=== PATIENT | male | born 1945 | race Caucasian/White ===

== ENCOUNTER 2019-02-15 12:26 | Inpatient (IN) ==
[2019-02-15] MEDS ORDERED: 0.9 % SODIUM CHLORIDE 1,000 ML IV ONE ×2 (12:42→14:21)
--- NOTE | 2019-02-15 13:24 | Emergency Department Note ---
Weakness HPI - General Chief complaint: Weakness Stated complaint: WEAKNESS Time Seen by Provider: 02/15/19 13:11 Source: family Mode of arrival: wheelchair Limitations: altered mental status - History of Present Illness HPI Narrative: Patient brought in because of increased weakness. Patient does drink heavily daily age greater than 5 drinks a day of hard liquor. He states today already he has had 5 alcohol drinks. He has been having episodes of falling states is from his peripheral neuropathy. His housekeeper head does say he has a heavy history of alcohol abuse. This patient states he has had the sores on his big toes for the past 3 days was found today incontinent of stool and urine. And too weak to get up. Denies any chest pain there is no shortness of breathTemperature is 97.3 the pulse is 76 the respirations are 22 and blood pressure 133/72 pulse ox 90% - Related Data Home Medications Medication Instructions Recorded Confirmed Allopurinol [Zyloprim] 300 mg PO DAILY 05/02/18 05/02/18 Atorvastatin [Lipitor] 20 mg PO HS 05/02/18 05/02/18 Folic Acid 1 mg PO DAILY 05/02/18 05/02/18 Furosemide [Lasix] 40 mg PO DAILY 05/02/18 05/02/18 Pantoprazole [Protonix] 40 mg PO QAMAC 05/02/18 05/02/18 Potassium Chloride [Kdur] 10 meq PO DAILY 05/02/18 05/02/18 Propranolol [Inderal LA] 80 mg PO DAILY 05/02/18 05/02/18 metFORMIN HCL [Fortamet] 500 mg PO BID 05/02/18 05/02/18 Allergies Allergy/AdvReac Type Severity Reaction Status Date / Time No Known Drug Allergies Allergy Verified 02/15/19 12:31 Review of Systems All systems ED: reviewed and negative except as stated. Constitutional: Reports: weakness. Denies: fever, chills Cardiovascular: Denies: chest pain Genitourinary: Denies: dysuria, frequency, urgency Endocrine: Reports: fatigue Past Medical History - Past Medical History Medical history: Reports: other (Heavy alcohol usage) - Social History smoking status: Former smoker Alcohol use: Reports: Frequently, Heavy Drug use: Reports: none Physical Exam Limitations: altered mental status Head: atraumatic Eye: Present: normal appearance, PERRL ENT: normal exam, normal oropharynx Neck: Present: normal inspection, full ROM Chest: Present: normal inspection, symmetric chest wall rise Respiratory: Present: normal lung sounds bilaterally, respiratory distress Cardiovascular: Present: regular rate, normal rhythm Abdominal: Present: soft, normal bowel sounds. Absent: distention, tenderness, guarding, rebound, rigidity Back: Present: normal inspection, full ROM. Absent: tenderness, CVA tenderness (R) Neurological: Present: alert, oriented X3 Psychiatric: Present: normal affect, normal mood Skin: Present: warm, cool Course Vital Signs Temperature 97.3 F 02/15/19 12:26 Pulse Rate 76 02/15/19 12:26 Respiratory Rate 22 02/15/19 12:26 Blood Pressure 133/72 02/15/19 12:26 Pulse Oximetry (%) 100 02/15/19 12:26 Temperature 97.3 F 02/15/19 12:26 Pulse Rate 80 02/15/19 16:02 Respiratory Rate 29 H 02/15/19 15:42 Blood Pressure 139/70 02/15/19 16:02 Pulse Oximetry (%) 100 02/15/19 16:02 Weakness - MDM Narrative Medical decision making narrative: White counts 10,400 to hemoglobin 11.4 hematocrit 33.8 lactic acid is 4.9 and panel normal of the BNP is 1 324 elevated liver function tests urine test is normal EtOH is 0.404 patient found with increased weakness and falling on the floor patient found in feces and urine. Dr. Rodriguez contacted patient to be admitted. Blood cultures have been drawn culture and sensitivity of the wound Comycin started - Lab Data Result diagrams: 02/15/19 12:58 02/15/19 12:58 Lab Results 02/15/19 02/15/19 02/15/19 Range/Units 12:58 12:58 12:58 WBC 10.4 (4.5-11.0) K/mcL RBC 3.19 L (4.50-5.90) M/mcL Hgb 11.4 L (13.5-16.5) g/dL Hct 33.8 L (41.0-55.0) % MCV 105.9 H (80.0-100.0) fL MCH 35.8 H (26.0-34.0) pg MCHC 33.8 (31.0-36.0) g/dL RDW 14.0 (11.5-14.5) % Plt Count 188 (140-440) K/mcL MPV 7.0 L (7.4-10.4) fL Gran % 75.5 (38.0-78.0) % Lymph % (Auto) 14.3 L (15.5-49.0) % [place] % (Auto) 9.8 (1.0-12.0) % Eos % (Auto) 0.1 (0.0-7.0) % Baso % (Auto) 0.3 (0.0-2.0) % Gran # 7.9 (1.8-8.0) K/mcL Lymph # (Auto) 1.5 (1.5-4.8) K/mcL [place] # (Auto) 1.0 H (0.1-0.9) K/mcL Eos # (Auto) 0 (0.0-0.7) K/mcL Baso # (Auto) 0 (0.0-0.3) K/mcL VBG Lactic Acid (0.5-2.0) mmol/L Sodium 124 L (133-145) mmol/L Potassium 3.9 (3.3-5.1) mmol/L Chloride 78 L (96-108) mmol/L Carbon Dioxide 20 L (22-30) mmol/L Anion Gap 26.0 H (8-16) BUN 28 H (8-23) mg/dl Creatinine 1.5 H (0.7-1.2) mg/dl GFR Calculation 46 Glucose 84 (70-105) mg/dL Calcium 9.1 (8.6-10.4) mg/dl Total Bilirubin 1.0 (0.0-1.0) mg/dL AST 90 H (0-37) U/l ALT 53 H (0-40) U/l Alkaline Phosphatase 114 (39-117) U/L Total Creatine Kinase 433 H (24-195) IU/L Troponin T < 0.01 (0-0.03) ng/ml NT-Pro-B Natriuret Pep 1324.0 H (0-125) pg/ml Total Protein 7.3 (5.9-8.4) gm/dL Albumin 4.4 (3.2-5.2) gm/dL Globulin 2.9 (2.2-3.7) gm/dL Albumin/Globulin Ratio 1.5 (1.0-2.3) Urine Color Urine Appearance Urine pH (5.0-9.0) Ur Specific [place] (1.000-1.035) Urine Protein (NEG) mg/dL Urine Glucose (UA) (NEG) mg/dL Urine Ketones (NEG) mg/dL Urine Occult Blood (<0.03) mg/dL Urine Nitrate (NEG) Urine Bilirubin (NEG) mg/dL Urine Urobilinogen (NEG) mg/dL Ur Leukocyte Esterase (NEG) /uL Urine RBC (0-1) /hpf Urine WBC (0-4) /hpf Ur Squamous Epith Cells (0-4) /hpf Urine Bacteria (0) /hpf Urine Mucus (0) /hpf Ur Culture Indicated? Urine Opiates Screen (NONDETECTED) Ur Oxycodone Screen (NONDETECTED) Urine Methadone Screen (NONDETECTED) Ur Barbiturates Screen (NONDETECTED) Ur Phencyclidine Scrn (NONDETECTED) Ur Amphetamines Screen (NONDETECTED) U Benzodiazepines Scrn (NONDETECTED) Urine Cocaine Screen (NONDETECTED) U Marijuana (THC) Screen (NONDETECTED) Ethyl Alcohol (<0.010) gm/dl 02/15/19 02/15/19 02/15/19 Range/Units 12:58 13:29 13:30 WBC (4.5-11.0) K/mcL RBC (4.50-5.90) M/mcL Hgb (13.5-16.5) g/dL Hct (41.0-55.0) % MCV (80.0-100.0) fL MCH (26.0-34.0) pg MCHC (31.0-36.0) g/dL RDW (11.5-14.5) % Plt Count (140-440) K/mcL MPV (7.4-10.4) fL Gran % (38.0-78.0) % Lymph % (Auto) (15.5-49.0) % [place] % (Auto) (1.0-12.0) % Eos % (Auto) (0.0-7.0) % Baso % (Auto) (0.0-2.0) % Gran # (1.8-8.0) K/mcL Lymph # (Auto) (1.5-4.8) K/mcL [place] # (Auto) (0.1-0.9) K/mcL Eos # (Auto) (0.0-0.7) K/mcL Baso # (Auto) (0.0-0.3) K/mcL VBG Lactic Acid 4.9 H* (0.5-2.0) mmol/L Sodium (133-145) mmol/L Potassium (3.3-5.1) mmol/L Chloride (96-108) mmol/L Carbon Dioxide (22-30) mmol/L Anion Gap (8-16) BUN (8-23) mg/dl Creatinine (0.7-1.2) mg/dl GFR Calculation Glucose (70-105) mg/dL Calcium (8.6-10.4) mg/dl Total Bilirubin (0.0-1.0) mg/dL AST (0-37) U/l ALT (0-40) U/l Alkaline Phosphatase (39-117) U/L Total Creatine Kinase (24-195) IU/L Troponin T (0-0.03) ng/ml NT-Pro-B Natriuret Pep (0-125) pg/ml Total Protein (5.9-8.4) gm/dL Albumin (3.2-5.2) gm/dL Globulin (2.2-3.7) gm/dL Albumin/Globulin Ratio (1.0-2.3) Urine Color Yellow Urine Appearance Clear Urine pH 6.0 (5.0-9.0) Ur Specific [place] 1.010 (1.000-1.035) Urine Protein 100 (2+) (NEG) mg/dL Urine Glucose (UA) Norm (NEG) mg/dL Urine Ketones 15 (1+) (NEG) mg/dL Urine Occult Blood 1+ (small) (<0.03) mg/dL Urine Nitrate Neg (NEG) Urine Bilirubin Neg (NEG) mg/dL Urine Urobilinogen Norm (NEG) mg/dL Ur Leukocyte Esterase Neg (NEG) /uL Urine RBC 0 (0-1) /hpf Urine WBC < 1 (0-4) /hpf Ur Squamous Epith Cells < 1 (0-4) /hpf Urine Bacteria 0 (0) /hpf Urine Mucus Few (0) /hpf Ur Culture Indicated? No Urine Opiates Screen (NONDETECTED) Ur Oxycodone Screen (NONDETECTED) Urine Methadone Screen (NONDETECTED) Ur Barbiturates Screen (NONDETECTED) Ur Phencyclidine Scrn (NONDETECTED) Ur Amphetamines Screen (NONDETECTED) U Benzodiazepines Scrn (NONDETECTED) Urine Cocaine Screen (NONDETECTED) U Marijuana (THC) Screen (NONDETECTED) Ethyl Alcohol 0.404 H (<0.010) gm/dl 02/15/19 Range/Units 13:30 WBC (4.5-11.0) K/mcL RBC (4.50-5.90) M/mcL Hgb (13.5-16.5) g/dL Hct (41.0-55.0) % MCV (80.0-100.0) fL MCH (26.0-34.0) pg MCHC (31.0-36.0) g/dL RDW (11.5-14.5) % Plt Count (140-440) K/mcL MPV (7.4-10.4) fL Gran % (38.0-78.0) % Lymph % (Auto) (15.5-49.0) % [place] % (Auto) (1.0-12.0) % Eos % (Auto) (0.0-7.0) % Baso % (Auto) (0.0-2.0) % Gran # (1.8-8.0) K/mcL Lymph # (Auto) (1.5-4.8) K/mcL [place] # (Auto) (0.1-0.9) K/mcL Eos # (Auto) (0.0-0.7) K/mcL Baso # (Auto) (0.0-0.3) K/mcL VBG Lactic Acid (0.5-2.0) mmol/L Sodium (133-145) mmol/L Potassium (3.3-5.1) mmol/L Chloride (96-108) mmol/L Carbon Dioxide (22-30) mmol/L Anion Gap (8-16) BUN (8-23) mg/dl Creatinine (0.7-1.2) mg/dl GFR Calculation Glucose (70-105) mg/dL Calcium (8.6-10.4) mg/dl Total Bilirubin (0.0-1.0) mg/dL AST (0-37) U/l ALT (0-40) U/l Alkaline Phosphatase (39-117) U/L Total Creatine Kinase (24-195) IU/L Troponin T (0-0.03) ng/ml NT-Pro-B Natriuret Pep (0-125) pg/ml Total Protein (5.9-8.4) gm/dL Albumin (3.2-5.2) gm/dL Globulin (2.2-3.7) gm/dL Albumin/Globulin Ratio (1.0-2.3) Urine Color Urine Appearance Urine pH (5.0-9.0) Ur Specific [place] (1.000-1.035) Urine Protein (NEG) mg/dL Urine Glucose (UA) (NEG) mg/dL Urine Ketones (NEG) mg/dL Urine Occult Blood (<0.03) mg/dL Urine Nitrate (NEG) Urine Bilirubin (NEG) mg/dL Urine Urobilinogen (NEG) mg/dL Ur Leukocyte Esterase (NEG) /uL Urine RBC (0-1) /hpf Urine WBC (0-4) /hpf Ur Squamous Epith Cells (0-4) /hpf Urine Bacteria (0) /hpf Urine Mucus (0) /hpf Ur Culture Indicated? Urine Opiates Screen None detected (NONDETECTED) Ur Oxycodone Screen None detected (NONDETECTED) Urine Methadone Screen None detected (NONDETECTED) Ur Barbiturates Screen None detected (NONDETECTED) Ur Phencyclidine Scrn None detected (NONDETECTED) Ur Amphetamines Screen None detected (NONDETECTED) U Benzodiazepines Scrn None detected (NONDETECTED) Urine Cocaine Screen None detected (NONDETECTED) U Marijuana (THC) Screen None detected (NONDETECTED) Ethyl Alcohol (<0.010) gm/dl Disposition Pt seen by COATING MACHINE FEEDER/PA only: No Clinical Impression: Elevated lactic acid level Disposition: Xfer As Inpt ([facility]) Condition: Fair Referrals: Sancho Martell MD [Primary Care Provider] -
[2019-02-15 13:35] LABS: Basophils # (Auto) 0 K/mcL (0.0-0.3); Basophils % (Auto) 0.3 % (0.0-2.0); Eosinophils # (Auto) 0 K/mcL (0.0-0.7); Eosinophils % (Auto) 0.1 % (0.0-7.0); Granulocytes % (Auto) 75.5 % (38.0-78.0); Lymphocytes # (Auto) 1.5 K/mcL (1.5-4.8); Lymphocytes % (Auto) 14.3 % (15.5-49.0); Mean Cell Volume 105.9 fL (80.0-100.0); Mean Corpuscular HGB Conc 33.8 g/dL (31.0-36.0); Monocytes % (Auto) 9.8 % (1.0-12.0); Platelet Count 188 K/mcL (140-440); RBC 3.19 M/mcL (4.50-5.90)
--- NOTE | 2019-02-15 13:59 | XRay Report ---
CLINICAL INFORMATION: WEAKNESS COMPARISON: None. FINDINGS: The heart size, mediastinum and pulmonary vessels are unremarkable. The lungs are clear. There are no effusions. The bones and soft tissues are within normal limits. IMPRESSION: Normal chest. Interpreted and Authenticated by: Saravanan Arreola 02/15/19
[2019-02-15 14:08] LABS: ALT/SGPT 53 U/l (0-40); Albumin 4.4 gm/dL (3.2-5.2); Albumin/Globulin Ratio 1.5 (1.0-2.3); Alkaline Phosphatase 114 U/L (39-117); Blood Urea Nitrogen 28 mg/dl (8-23); Creatine Kinase 433 IU/L (24-195)
[2019-02-15 14:17] LABS: Appearance,Urine CLEAR; Bacteria,Urine 0 /hpf (0); Bilirubin,Urine NEG (NEG); Color,Urine YELLOW; Glucose,Urine (UA) NORM (NEG); Leukocyte Esterase,Urine NEG /uL (NEG); Mucus,Urine FEW /hpf (0); Protein,Urine 100 (2+) mg/dL (NEG); Urine Blood 1+ (SMALL) mg/dL (<0.03); Urine RBC 0 /hpf (0-1); Urine Squamous Epithelial Cell < 1 /hpf (0-4); Urine WBC < 1 /hpf (0-4); Urobilinogen,Urine NORM (NEG)
[2019-02-15] MEDS ORDERED: VANCOMYCIN 1,000 MG in 0.9 % SODIUM CHLORIDE 250 ML IV ONE (14:22)
[2019-02-15 14:24] LABS: Amphetamine Screen,Urine NONE DETECTED (NONDETECTED); Benzodiazepines Screen,Urine NONE DETECTED (NONDETECTED); Cocaine Screen,Urine NONE DETECTED (NONDETECTED); Opiate Screen,Urine NONE DETECTED (NONDETECTED); Oxycodone, Urine Screen NONE DETECTED (NONDETECTED)
--- NOTE | 2019-02-15 16:43 | Cat Scan Report ---
CLINICAL INFORMATION: Fall - trauma COMPARISON: None. TECHNIQUE: 2.5 mm helical slices were obtained in the skull base to vertex. Following reconstruction, axial reformatted images were reviewed at bone and parenchymal windows. The exam was performed using radiation dose optimization techniques including, but not limited to, automated exposure control, adjustment of the mA and/or kV according to patient size and use of iterative reconstruction technique. FINDINGS: The ventricles, sulci, fissures, and cisterns are minimally enlarged with mild atrophy as expected for age. No extra-axial fluid collections are identified. Mild chronic ischemic changes in the the cerebral white matter expected for age. There is no evidence of hemorrhage, mass effect, or edema. Bone windows show no osseous abnormality. IMPRESSION: Mild atrophy and chronic ischemic changes within the deep cerebral white matter - expected for age. No hemorrhage or posttraumatic change.. Interpreted and Authenticated by: Saravanan Arreola 02/15/19
--- NOTE | 2019-02-15 17:51 | Internal Med History&Physical ---
Medical - H&P: HPI Patient information: Note initiated : 02/15/19 at 5:46 pm Service Date, if different from initiated Date: [] Patient: Torsten Marroquin 73 y/o M admitted on for Weakness. Chief Complaint: [] History of present illness: Mr. Marroquin is a 73 year old M with history of diabetes, heavy alcohol use, brought to the hospital today by EMS for altered mental status. The patient does not remember the events this morning or afternoon that led to his coming to the hospital. He notes that as usual he drank his usual amount of alcohol. According to the chart it seems that his health and fitness instructor came to check on him, patient was altered did not recognize a health and fitness instructor had multiple bruises on himself and was incontinent of urine and feces. She referred the patient to the hospital. Glucose level by EMS and on presentation was normal. The patient was confused on in the emergency room, and altered, but able to answer questions. He noted that he had 2 ulcers that have been going on for the last 3 days, he has been weak, the patient admits to drinking up to 8 drinks of alcohol a day. The patient notes that he has balance issues because of his neuropathy and has frequent falls because of that. He is not sure what happened this morning however at the time of my evaluation he was alert oriented to time place and person. He denies any complaints. He noted that his toes have been red and swollen for the last few days, did not complain of much pain, because of neuropathy he is unable to have much sensation in his lower extremity. He admits to having chronic tremors and frequent falls, balance issues, the patient notes that when he stopped drinking alcohol because WelChol withdrawal. In the emergency room patient was afebrile on presentation 97.3, heart rate 77 blood pressure 133/72 respirations 22 saturating 100% on room air. Hemoglobin 11.4 WBC 10.4 platelets 188, lactic acid elevated at 4.9, sodium 124 potassium 3.9 glucose 84, creatinine 1.5 BUN 28, CK 433 BNP 1320 troponin is negative UA is clear to tox is negative urine alcohol level was 0.404. [place] EKG shows sinus rhythm QS pattern V1 V2. Chest x-ray is negative, head CT showed mild atrophy no acute changes Given patient had bilateral toe ulcers erythema, lactic acidosis weakness increased falls patient is being admitted to the hospital PCU status for further management. Patient wishes to be full code Patient noted that he would like to quit alcohol, but has been afraid to quit because of withdrawal, he would like to stop drinking he understands that he will go through withdrawal process and is willing to quit drinking after discharge All systems: reviewed and no additional remarkable complaints except as stated (as per HPI rest negative.) Medical - H&P: PMH Medical history: Diabetes Peripheral neuropathy Chronic balance is Tremor ambulates with walker Obesity Gout Hyperlipidemia Surgical history: History of prostate surgery Family history: reviewed and not pertinent Social history: Lives by himself heavy alcohol user 8 full classes alcohol a day, half a gallon lasting 4 days Ex-smoker stopped many years ago Denies any recreational drug use Medical - H&P: Meds Home Medications Medication Instructions Recorded Confirmed Type Allopurinol [Zyloprim] 300 mg PO DAILY 05/02/18 05/02/18 History Atorvastatin [Lipitor] 20 mg PO HS 05/02/18 05/02/18 History Folic Acid 1 mg PO DAILY 05/02/18 05/02/18 History Furosemide [Lasix] 40 mg PO DAILY 05/02/18 05/02/18 History Pantoprazole [Protonix] 40 mg PO QAMAC 05/02/18 05/02/18 History Potassium Chloride [Kdur] 10 meq PO DAILY 05/02/18 05/02/18 History Propranolol [Inderal LA] 80 mg PO DAILY 05/02/18 05/02/18 History metFORMIN HCL [Fortamet] 500 mg PO BID 05/02/18 05/02/18 History Allergies Allergy/AdvReac Type Severity Reaction Status Date / Time No Known Drug Allergies Allergy Verified 02/15/19 12:31 Medical - H&P: Exam - Constitutional Vitals: Temp Pulse Resp BP Pulse Ox 97.3 F 77 12 139/70 98 02/15/19 12:26 02/15/19 17:39 02/15/19 17:39 02/15/19 16:02 02/15/19 17:39 Medical - H&P: Reslt - Labs CBC & Chem 7: 02/15/19 12:58 02/15/19 12:58 Labs: Short CBC 02/15/19 Range/Units 12:58 WBC 10.4 (4.5-11.0) K/mcL Hgb 11.4 L (13.5-16.5) g/dL Hct 33.8 L (41.0-55.0) % Plt Count 188 (140-440) K/mcL BMP 02/15/19 12:58 Sodium 124 L Potassium 3.9 Chloride 78 L Carbon Dioxide 20 L BUN 28 H Creatinine 1.5 H Glucose 84 Calcium 9.1 Cardiac Enzymes 02/15/19 02/15/19 Range/Units 12:58 12:58 Total Creatine Kinase 433 H (24-195) IU/L Troponin T < 0.01 (0-0.03) ng/ml Liver Function 02/15/19 Range/Units 12:58 Total Bilirubin 1.0 (0.0-1.0) mg/dL AST 90 H (0-37) U/l ALT 53 H (0-40) U/l Alkaline Phosphatase 114 (39-117) U/L Albumin 4.4 (3.2-5.2) gm/dL Urine 02/15/19 Range/Units 13:30 Urine Color Yellow Urine Appearance Clear Urine pH 6.0 (5.0-9.0) Ur Specific [place] 1.010 (1.000-1.035) Urine Protein 100 (2+) (NEG) mg/dL Urine Glucose (UA) Norm (NEG) mg/dL Medical - H&P: A/P - Narrative A/P Narrative: A/P Altered mental status/ Toxic vs septic encephalopathy -mental status seems back to baseline, likely from etoh intoxication, sepsis is still possible. Sepsis with Lactic acidosis Cellulitis of toes/ lower extremities -Get CT of toes both, blood culture sent, IV vanco and zosyn for now, -Aggresive fluids, Trend lactate Alcohol intoxication/ Alcohol withdrawal -high risk for withdrawal, -monitor on PCU status -ciwa protocol, yeny valium 5mg q8 -thiamine mv, folic acid -seizure precautions. Peripheral neuropathy -from DM, rehab Weaknes/Debility -OT/PT eval DM -Hold oral meds, ssi insulin for glucose control HLD/ Obesity -continue outpatient management. DVT hep sq Diet carb consistent Full code.
[2019-02-15 18:03] LABS: Albumin 4.2 gm/dL (3.2-5.2); Bilirubin,Direct 0.4 mg/dL (0.0-0.3)
--- NOTE | 2019-02-15 19:39 | Cat Scan Report ---
CLINICAL INFORMATION: cellulitis/osteomyelitis COMPARISON: None. TECHNIQUE: 0.625 helical slices were obtained through both feet and ankles. Following reconstruction, 2.5 m sagittal, coronal and axial reformatted images were processed in bone and soft tissue windows. FINDINGS: There are no potential regions of osteomyelitis throughout either foot or ankle. Mild diffuse osteoporosis appreciated. Severe degenerative change noted in both first MTP joints with bilateral hallux valgus anomalies. Moderate degenerative change in all interphalangeal joints. No evidence of septic arthritis. Moderate edema or cellulitis seen diffusely throughout the subcutaneous the ankle bilaterally. IMPRESSION: Diffuse edema or cellulitis in the subcutaneous soft tissues of both feet. No CT evidence for osteomyelitis or septic arthritis. Degenerative change bilateral hallux valgus Interpreted and Authenticated by: Saravanan Arreola 02/15/19
[2019-02-15] MEDS ORDERED: ACETAMINOPHEN 325 MG TABLET PO PRN (19:55)
[2019-02-15] MEDS ORDERED: THIAMINE 100 MG in 0.9 % SODIUM CHLORIDE 50 ML IV ONE (19:55)
[2019-02-15] MEDS ORDERED: DEXTROSE 50% 50 ML VIAL IV PRN (19:55)
[2019-02-15] MEDS ORDERED: NALOXONE HCL 0.4 MG/ML VIAL IV PRN (19:55)
[2019-02-15] MEDS ORDERED: DEXTROSE 31 GM ORAL.SUSP PO PRN (19:55)
[2019-02-15] MEDS ORDERED: LACTATED RINGERS 1,000 ML IV ONE ×4 (19:55→22:31)
[2019-02-15] MEDS ORDERED: VANCOMYCIN PER PHARMACY IV SCH (19:55)
[2019-02-15] MEDS ORDERED: THIAMINE 100 MG/ML VIAL ONE (20:22)
[2019-02-15] MEDS: INSULIN LISPRO 1 UNIT/0.01 ML UNIT SQ SCH (20:30)
[2019-02-15] MEDS: VANCOMYCIN 1,000 MG in 0.9 % SODIUM CHLORIDE 250 ML IV SCH (20:32)
[2019-02-15] MEDS ORDERED: MAGNESIUM SULFATE 2 GM/50 ML BAG IV ONE (20:56)
[2019-02-15] MEDS: 0.9 % SODIUM CHLORIDE 10 ML SYRINGE IV SCH (22:44)
[2019-02-15] MEDS: PIPERACILLIN SODIUM/TAZOBACTAM 3.375 GM in DEXTROSE 5% IN WATER 50 ML IV SCH (22:44)
[2019-02-15] MEDS: HEPARIN 5,000 UNIT/ML VIAL SQ SCH (22:44)
[2019-02-15] MEDS: DIAZEPAM 5 MG TABLET PO SCH (22:44)
[2019-02-16] MEDS: ONDANSETRON 4 MG/2 ML VIAL IV PRN ×4 (01:03→22:00)
[2019-02-16] MEDS: LORazepam 2 MG/ML VIAL IV PRN ×4 (02:42→22:00)
[2019-02-16] MEDS: 0.9 % SODIUM CHLORIDE 10 ML SYRINGE IV SCH ×6 (05:43→21:49)
[2019-02-16] MEDS: DIAZEPAM 5 MG TABLET PO SCH ×3 (05:47→21:54)
[2019-02-16] MEDS: PIPERACILLIN SODIUM/TAZOBACTAM 3.375 GM in DEXTROSE 5% IN WATER 50 ML IV SCH ×3 (05:47→21:54)
[2019-02-16] MEDS: PANTOPRAZOLE 40 MG TABLET PO SCH ×2 (06:57→09:28)
[2019-02-16] MEDS: INSULIN LISPRO 1 UNIT/0.01 ML UNIT SQ SCH ×4 (07:00→20:09)
[2019-02-16 07:04] LABS: Basophils # (Auto) 0 K/mcL (0.0-0.3); Basophils % (Auto) 0.2 % (0.0-2.0); Eosinophils # (Auto) 0 K/mcL (0.0-0.7); Eosinophils % (Auto) 0 % (0.0-7.0); Granulocytes % (Auto) 84.3 % (38.0-78.0); Lymphocytes # (Auto) 0.7 K/mcL (1.5-4.8); Lymphocytes % (Auto) 8.7 % (15.5-49.0); Mean Cell Volume 107.8 fL (80.0-100.0); Monocytes # (Auto) 0.5 K/mcL (0.1-0.9); Monocytes % (Auto) 6.8 % (1.0-12.0); Platelet Count 157 K/mcL (140-440); Red Cell Distribution Width 14.4 % (11.5-14.5)
[2019-02-16 07:43] LABS: ALT/SGPT 57 U/l (0-40); Albumin 3.7 gm/dL (3.2-5.2); Albumin/Globulin Ratio 1.5 (1.0-2.3); Alkaline Phosphatase 102 U/L (39-117); Bilirubin,Direct 0.3 mg/dL (0.0-0.3); Blood Urea Nitrogen 21 mg/dl (8-23); Gamma Glutamyl Transpeptidase 92 U/L (8-61); Uric Acid 4.9 mg/dL (2.5-8.0)
[2019-02-16] MEDS: HEPARIN 5,000 UNIT/ML VIAL SQ SCH ×2 (09:19→20:10)
[2019-02-16] MEDS: THIAMINE 100 MG TABLET PO SCH (10:40)
[2019-02-16] MEDS: FOLIC ACID 1 MG TABLET PO SCH (10:40)
[2019-02-16] MEDS: MULTIVIT,THER IRON,CA,FA & MIN 1 TABLET PO SCH (10:40)
[2019-02-16] MEDS: cloNIDine HCL 0.1 MG TABLET PO PRN (10:40)
[2019-02-16] MEDS: VANCOMYCIN 1,000 MG in 0.9 % SODIUM CHLORIDE 250 ML IV SCH ×2 (10:40→20:10)
[2019-02-16] MEDS: LACTATED RINGERS 1,000 ML IV SCH (14:50)
--- NOTE | 2019-02-16 16:11 | General Surgery Consult Note ---
History of Present Illness Patient information: Note initiated : 02/16/19 at 4:08 pm Service Date, if different from initiated Date: [] Patient: Torsten Marroquin 73 y/o M admitted on 02/15/19 for Weakness. Chief Complaint: [] Consult date: 02/16/19 Requesting physician: Jai Rodriguez (Toe ulcers / wounds Bilateral feet) History of present illness: I saw this patient along with Anabella WING in ICU 120 / D CC: ETOH, AMS, Self neglect and h/o frequent falls and now with episode of lactic acidosis with incontinence of urine and stools. He was seen to have pitti ng edema of both legs and ulcerations with adherent eschar over toes Medications and Allergies Home Medications Medication Instructions Recorded Confirmed Type Allopurinol [Zyloprim] 300 mg PO DAILY 05/02/18 02/17/19 History Atorvastatin [Lipitor] 20 mg PO HS 05/02/18 02/17/19 History Folic Acid 1 mg PO DAILY 05/02/18 02/17/19 History Furosemide [Lasix] 40 mg PO DAILY 05/02/18 02/17/19 History Pantoprazole [Protonix] 40 mg PO QAMAC 05/02/18 02/17/19 History Potassium Chloride [Kdur] 10 meq PO DAILY 05/02/18 02/17/19 History Propranolol [Inderal LA] 80 mg PO DAILY 05/02/18 02/17/19 History metFORMIN HCL [Fortamet] 500 mg PO BID 05/02/18 02/17/19 History Aspirin [Sera Chewable Aspirin] 81 mg PO DAILY 02/17/19 02/17/19 History Calcium Carbonate [Calcium] 1,000 mg PO DAILY 02/17/19 02/17/19 History Magnesium Oxide [Magnesium] 500 mg PO DAILY 02/17/19 02/17/19 History Vitamin B12 1,000 mcg PO DAILY 02/17/19 02/17/19 History Allergies Allergy/AdvReac Type Severity Reaction Status Date / Time No Known Drug Allergies Allergy Verified 02/15/19 12:31 Exam Temp Pulse Resp BP Pulse Ox 99.9 F H 81 20 150/73 96 02/16/19 15:18 02/16/19 12:48 02/16/19 12:48 02/16/19 12:01 02/16/19 12:48 - General physical appearance well developed, well nourished, no distress - Eyes PERRL, normal ocular movement - ENT normal pinna, normal mucosa, no congestion - Head Head exam IM: Present: atraumatic, normocephalic - Neck no masses, trachea midline, no venous distension - Cardiovascular Cardiovascular exam IM: Present: tachycardia - Respiratory other (Diminished air entry lung bases) - Abdomen Abdomen: Present: soft, non tender, bowel sounds - Integumentary Present: other (Epiedermal chronic ulcers of toes both feet. NO Cellulitis. NO gangrene, NO crepitation, No drainage and NO odor. ) - Neurologic Present: other (In Bed. BERKOWITZ purposeful movements. DTs and Tremors of all extremities on admission are better. ) - Psychiatric Present: oriented to place, speech is normal, other (Variable attention span, but coherent and lucid at times and cooperative. ) Results - Labs 02/17/19 03:55 02/17/19 03:55 Abnormal lab results 02/15/19 02/15/19 02/16/19 Range/Units 12:58 21:03 03:40 RBC 2.90 L (4.50-5.90) M/mcL Hgb 10.3 L (13.5-16.5) g/dL Hct 31.2 L (41.0-55.0) % MCV 107.8 H (80.0-100.0) fL MCH 35.5 H (26.0-34.0) pg Gran % 84.3 H (38.0-78.0) % Lymph % (Auto) 8.7 L (15.5-49.0) % Lymph # (Auto) 0.7 L (1.5-4.8) K/mcL VBG Lactic Acid 4.2 H* (0.5-2.0) mmol/L Sodium (133-145) mmol/L Chloride (96-108) mmol/L Carbon Dioxide (22-30) mmol/L Anion Gap (8-16) Creatinine (0.7-1.2) mg/dl Calcium (8.6-10.4) mg/dl Direct Bilirubin 0.4 H (0.0-0.3) mg/dL GGT (8-61) U/L AST 88 H (0-37) U/l ALT 52 H (0-40) U/l Lactate Dehydrogenase (94-250) U/L 02/16/19 02/16/19 Range/Units 03:40 04:00 RBC (4.50-5.90) M/mcL Hgb (13.5-16.5) g/dL Hct (41.0-55.0) % MCV (80.0-100.0) fL MCH (26.0-34.0) pg Gran % (38.0-78.0) % Lymph % (Auto) (15.5-49.0) % Lymph # (Auto) (1.5-4.8) K/mcL VBG Lactic Acid 2.9 H (0.5-2.0) mmol/L Sodium 132 L (133-145) mmol/L Chloride 88 L (96-108) mmol/L Carbon Dioxide 17 L (22-30) mmol/L Anion Gap 27.0 H (8-16) Creatinine 1.3 H (0.7-1.2) mg/dl Calcium 8.5 L (8.6-10.4) mg/dl Direct Bilirubin (0.0-0.3) mg/dL GGT 92 H (8-61) U/L AST 93 H (0-37) U/l ALT 57 H (0-40) U/l Lactate Dehydrogenase 301 H (94-250) U/L Diabetes panel 02/15/19 02/16/19 Range/Units 12:58 03:40 Sodium 132 L (133-145) mmol/L Potassium 3.9 (3.3-5.1) mmol/L Chloride 88 L (96-108) mmol/L Carbon Dioxide 17 L (22-30) mmol/L BUN 21 (8-23) mg/dl Creatinine 1.3 H (0.7-1.2) mg/dl Glucose 72 (70-105) mg/dL Calcium 8.5 L (8.6-10.4) mg/dl AST 88 H 93 H (0-37) U/l ALT 52 H 57 H (0-40) U/l Alkaline Phosphatase 109 102 (39-117) U/L Total Protein 7.1 6.1 (5.9-8.4) gm/dL Albumin 4.2 3.7 (3.2-5.2) gm/dL Triglycerides 31 (<150) mg/dl Thyroid panel 02/16/19 Range/Units 03:40 TSH 2.03 (0.27-5.01) uIU/ml Calcium panel 02/15/19 02/16/19 Range/Units 12:58 03:40 Calcium 8.5 L (8.6-10.4) mg/dl Phosphorus 3.4 3.1 (2.7-4.5) mg/dL Albumin 4.2 3.7 (3.2-5.2) gm/dL Pituitary panel 02/16/19 Range/Units 03:40 Sodium 132 L (133-145) mmol/L Potassium 3.9 (3.3-5.1) mmol/L Chloride 88 L (96-108) mmol/L Carbon Dioxide 17 L (22-30) mmol/L BUN 21 (8-23) mg/dl Creatinine 1.3 H (0.7-1.2) mg/dl Glucose 72 (70-105) mg/dL Calcium 8.5 L (8.6-10.4) mg/dl TSH 2.03 (0.27-5.01) uIU/ml Adrenal panel 02/15/19 02/16/19 Range/Units 12:58 03:40 Sodium 132 L (133-145) mmol/L Potassium 3.9 (3.3-5.1) mmol/L Chloride 88 L (96-108) mmol/L Carbon Dioxide 17 L (22-30) mmol/L BUN 21 (8-23) mg/dl Creatinine 1.3 H (0.7-1.2) mg/dl Glucose 72 (70-105) mg/dL Calcium 8.5 L (8.6-10.4) mg/dl Total Bilirubin 1.0 1.0 (0.0-1.0) mg/dL AST 88 H 93 H (0-37) U/l ALT 52 H 57 H (0-40) U/l Alkaline Phosphatase 109 102 (39-117) U/L Total Protein 7.1 6.1 (5.9-8.4) gm/dL Albumin 4.2 3.7 (3.2-5.2) gm/dL All other labs normal. Assessment and Plan (1) Bilateral great toes ulcers Assessment: Peripheral Neuropathy and Vasculopathy due to DM and / or PAD. Plan: See wound care orders. Agree with supportive care as d/w Hospitalist MD Await [facility]. Will follow patient during hospitalization and later at clinic. 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
--- NOTE | 2019-02-16 16:48 | Internal Med Progress Note ---
Medical - PN: Subj Patient information: Note initiated : 02/16/19 at 4:44 pm Service Date, if different from initiated Date: [] Patient: Torsten Marroquin 73 y/o M admitted on 02/15/19 for Weakness. Chief Complaint: [] Interval history: Mr. Marroquin is a 73 year old M with history of diabetes, heavy alcohol use, b rought to the hospital today by EMS for altered mental status. The patient does not remember the events this morning or afternoon that led to his coming to the hospital. He notes that as usual he drank his usual amount of alcohol. According to the chart it seems that his chemical engineering intern came to check on him, patient was altered did not recognize a chemical engineering intern had multiple bruises on himself and was incontinent of urine and feces. She referred the patient to the hospital. Glucose level by EMS and on presentation was normal. The patient was confused on in the emergency room, and altered, but able to answer questions. He noted that he had 2 ulcers that have been going on for the last 3 days, he has been weak, the patient admits to drinking up to 8 drinks of alcohol a day. The patient notes that he has balance issues because of his neuropathy and has frequent falls because of that. He is not sure what happened this morning however at the time of my evaluation he was alert oriented to time place and person. He denies any complaints. He noted that his toes have been red and swollen for the last few days, did not complain of much pain, because of neuropathy he is unable to have much sensation in his lower extremity. He admits to having chronic tremors and frequent falls, balance issues, the patient notes that when he stopped drinking alcohol because WelChol withdrawal. In the emergency room patient was afebrile on presentation 97.3, heart rate 77 blood pressure 133/72 respirations 22 saturating 100% on room air. Hemoglobin 11.4 WBC 10.4 platelets 188, lactic acid elevated at 4.9, sodium 124 potassium 3.9 glucose 84, creatinine 1.5 BUN 28, CK 433 BNP 1320 troponin is negative UA is clear to tox is negative urine alcohol level was 0.404. [facility] EKG shows sinus rhythm QS pattern V1 V2. Chest x-ray is negative, head CT showed mild atrophy no acute changes Given patient had bilateral toe ulcers erythema, lactic acidosis weakness increased falls patient is being admitted to the hospital PCU status for further management. 02/16 Patient seen and examined, no acute overnight events, tolerating p.o. diet well was very nauseous this morning. Is in alcohol withdrawal C was scores between 7 and 13 on day 1, Continue monitoring for now, continue scheduled Valium and as needed Ativan, continue thiamine replacement IV PPI added, plan of care reviewed with him, case also reviewed with his PCP, who was graciously to come to the hospital today. Pertinent ROS: Denies headache, dizziness Denies chest pain, palpitations Denies cough or shortness of breath Denies abdominal pain, nausea or vomiting. - Constitutional Vitals: Vital Signs Temp Pulse Resp BP Pulse Ox 99.9 F H 81 20 150/73 96 02/16/19 15:18 02/16/19 12:48 02/16/19 12:48 02/16/19 12:01 02/16/19 12:48 Period Temp Pulse Resp BP Sys/Martel Pulse Ox Last 24 Hr 97.2 F-100.2 F 73-86 12-26 115-164/59-75 92-100 Intake and Output 02/16/19 02/16/19 02/16/19 05:59 13:59 21:59 Intake Total 4027 700 Output Total 2125 1250 Balance 1902 -550 Weight 257 lb 1.6 oz Patient Weight 02/17/19 05:59 Weight 257 lb 1.6 oz Intake & Output: Intake & Output 02/16/19 02/16/19 02/16/19 05:59 13:59 21:59 Intake Total 4027 700 Output Total 2125 1250 Balance 1902 -550 Weight 257 lb 1.6 oz Intake: IV 3067 300 Lactated Ringers 1,000 ml @ 2000 Wide Open IV BOLUS ONE Rx#: [id number] Zosyn 3.375 gm In Dextrose 5% 50 50 in Water 50 ml @ 100 mls/hr IV Q8H [facility] Rx#:[id number] Vancomycin 1,000 mg In Sodium 250 Chloride 0.9% 250 ml @ 250 mls/ hr IV Q12H [facility] Rx#:[id number] Oral 960 400 Output: Urine Catheter Amount 2125 1250 Other: Meal Breakfast Percent of Meal Consumed 50% Feeding Ability Assist with Tray Set Up Urine Appearance Clear Carr Clear Clear Urine Color Light Vicenta Light Vicenta Carr Light Vicenta Light Vicenta Urine Odor Normal # Emeses 2 Exam: Constitutional; Afebrile, cooperative, alert, not in distress. Respiratory system: Air Entry equal on both sides, No crackles or wheezing, no rhonchi. CVS- Rate rhythm regular, S1,S2 heard, no gallop, no rub. Abdomen- Soft nontender abdomen, no organomegaly, no tenderness, no guarding or rigidity, MUSICAL [employer]ING [employer]ER- AOOx3, moving all extremities, no gross focal deficit noted. richy lower extremities, still erythematous, but improved from yesterday, richy pedal pulses present Medical - PN: Obj Da - Labs CBC & Chem 7: 02/16/19 03:40 02/16/19 03:40 Labs: Abnormal Lab Results 02/16/19 02/16/19 02/16/19 04:00 03:40 03:40 RBC 2.90 L Hgb 10.3 L Hct 31.2 L MCV 107.8 H MCH 35.5 H MPV Gran % 84.3 H Lymph % (Auto) 8.7 L Lymph # (Auto) 0.7 L [place] # (Auto) VBG Lactic Acid 2.9 H Sodium 132 L Chloride 88 L Carbon Dioxide 17 L Anion Gap 27.0 H BUN Creatinine 1.3 H Calcium 8.5 L Direct Bilirubin GGT 92 H AST 93 H ALT 57 H Lactate Dehydrogenase 301 H Total Creatine Kinase NT-Pro-B Natriuret Pep Ethyl Alcohol 02/15/19 02/15/19 02/15/19 21:03 13:29 12:58 RBC Hgb Hct MCV MCH MPV Gran % Lymph % (Auto) Lymph # (Auto) [place] # (Auto) VBG Lactic Acid 4.2 H* 4.9 H* Sodium Chloride Carbon Dioxide Anion Gap BUN Creatinine Calcium Direct Bilirubin 0.4 H GGT AST 88 H ALT 52 H Lactate Dehydrogenase Total Creatine Kinase NT-Pro-B Natriuret Pep Ethyl Alcohol 02/15/19 02/15/19 02/15/19 12:58 12:58 12:58 RBC 3.19 L Hgb 11.4 L Hct 33.8 L MCV 105.9 H MCH 35.8 H MPV 7.0 L Gran % Lymph % (Auto) 14.3 L Lymph # (Auto) [place] # (Auto) 1.0 H VBG Lactic Acid Sodium 124 L Chloride 78 L Carbon Dioxide 20 L Anion Gap 26.0 H BUN 28 H Creatinine 1.5 H Calcium Direct Bilirubin GGT AST 90 H ALT 53 H Lactate Dehydrogenase Total Creatine Kinase 433 H NT-Pro-B Natriuret Pep 1324.0 H Ethyl Alcohol 0.404 H Meds: Medications Acetaminophen (Tylenol) 650 mg PO Q4-6HP PRN PRN Reason: PAIN/FEVER > 101 Clonidine HCl (Catapres) 0.1 mg PO Q4HP PRN PRN Reason: Alcohol Withdrawal Last Admin: 02/16/19 10:40 Dose: 0.1 mg Documented by: Dextrose (Dextrose 50%) 0 ml IV UD PRN PRN Reason: Hypoglycemia Diagnostic Test (Pha) (Accu-Chek) 1 each FS ACHS [facility] Last Admin: 02/16/19 12:43 Dose: 1 each Documented by: Diazepam (Valium) 5 mg PO Q8 [facility] Last Admin: 02/16/19 14:51 Dose: 5 mg Documented by: Folic Acid (Folic Acid) 1 mg PO DAILY [facility] Last Admin: 02/16/19 10:40 Dose: 1 mg Documented by: Glucose (Insta-Glucose) 15 gm PO PRN PRN PRN Reason: Hypoglycemia Heparin Sodium (Porcine) (Heparin) 5,000 unit SQ Q12 [facility] Last Admin: 02/16/19 09:19 Dose: 5,000 unit Documented by: Piperacillin Sod/Tazobactam (Sod 3.375 gm/ Dextrose) 50 mls @ 100 mls/hr IV Q8H [facility]; Protocol Last Admin: 02/16/19 14:51 Dose: 100 mls/hr Documented by: Vancomycin HCl 1,000 mg/ (Sodium Chloride) 250 mls @ 250 mls/hr IV Q12H [facility] Last Infusion: 02/16/19 11:45 Dose: Infused Documented by: Lactated Ringer's (Lactated Ringers) 1,000 mls @ 84 mls/hr IV .[id number] [facility] Last Admin: 02/16/19 14:50 Dose: 84 mls/hr Documented by: Insulin Human Lispro (Humalog) 0 unit SQ ACHS [facility]; Protocol Last Admin: 02/16/19 12:44 Dose: Not Given Documented by: Iron Carb/Multivit/Timpson/Folic Acid (Multivitamin W/Minerals) 1 tab PO DAILY [facility] Last Admin: 02/16/19 10:40 Dose: 1 tab Documented by: Lorazepam (Ativan) 0 mg IV Q4HP PRN; Protocol PRN Reason: Alcohol Withdrawal Last Admin: 02/16/19 09:17 Dose: 1 mg Documented by: Mupirocin (Bactroban Oint 2%) 1 dose TOPICAL TID [facility] Naloxone HCl (Narcan) 0.1 mg IV Q2MIN PRN PRN Reason: Opiate Reversal Ondansetron HCl (Zofran) 4 mg IV Q4-6HP PRN PRN Reason: Nausea And Vomiting Last Admin: 02/16/19 10:40 Dose: 4 mg Documented by: Pantoprazole Sodium (Protonix) 40 mg PO QAMAC [facility] Last Admin: 02/16/19 09:28 Dose: 40 mg Documented by: Sodium Chloride (Saline Flush) 10 ml IV Q8 [facility] Last Admin: 02/16/19 14:51 Dose: 10 ml Documented by: Thiamine HCl (Vitamin B1) 100 mg PO DAILY [facility] Last Admin: 02/16/19 10:40 Dose: 100 mg Documented by: Vancomycin HCl (Vancomycin Per Pharmacy) 1 order IV UD [facility]; Protocol Medical - PN: A/P - Time Spent With Patient Total time spent is greater than 50% in coordination of care (as documented) at patient's floor/unit and/or counseling patient: - Narrative A/P Narrative: A/P Altered mental status/ Toxic vs septic encephalopathy -mental status seems back to baseline, likely from etoh intoxication, sepsis related? Sepsis with Lactic acidosis Cellulitis of toes/ lower extremities -Get CT of toes both, blood culture sent, IV vanco and zosyn for now, -Aggresive fluids, -lactic acid trending down nicely, Bactermia -[facility] single bottle, coag neg staph, likely contaminant, repeat cultures done, pt on vanco Alcohol intoxication/ Alcohol withdrawal -high risk for withdrawal, -monitor on PCU status -ciwa protocol, community health valium 5mg q8 -thiamine mv, folic acid -seizure precautions. -CIWA scores 7-13 Peripheral neuropathy -from DM, rehab Weaknes/Debility -OT/PT eval DM -Hold oral meds, ssi insulin for glucose control HLD/ Obesity -continue outpatient management. DVT hep sq Diet carb consistent Full code. Medical - PN: Qual - VTE Deep Vein Thrombosis/Pulmonary Embolism Present on Admission: No
[2019-02-16] MEDS: PANTOPRAZOLE 40 MG VIAL IV SCH (17:46)
[2019-02-16] MEDS: MUPIROCIN OINT 2% 22GM TOPICAL SCH (20:10)
[2019-02-17] MEDS: LACTATED RINGERS 1,000 ML IV SCH ×3 (00:35→17:00)
[2019-02-17] MEDS: LORazepam 2 MG/ML VIAL IV PRN ×2 (02:04→03:09)
[2019-02-17] MEDS: cloNIDine HCL 0.1 MG TABLET PO PRN (03:21)
[2019-02-17] MEDS: PIPERACILLIN SODIUM/TAZOBACTAM 3.375 GM in DEXTROSE 5% IN WATER 50 ML IV SCH ×3 (05:31→21:39)
[2019-02-17] MEDS: 0.9 % SODIUM CHLORIDE 10 ML SYRINGE IV SCH ×5 (06:42→21:39)
[2019-02-17 07:00] LABS: Basophils # (Auto) 0 K/mcL (0.0-0.3); Basophils % (Auto) 0.1 % (0.0-2.0); Eosinophils # (Auto) 0 K/mcL (0.0-0.7); Eosinophils % (Auto) 0.3 % (0.0-7.0); Lymphocytes # (Auto) 0.7 K/mcL (1.5-4.8); Lymphocytes % (Auto) 8.2 % (15.5-49.0); Mean Cell Volume 108.2 fL (80.0-100.0); Mean Corpuscular HGB Conc 32.6 g/dL (31.0-36.0); Monocytes # (Auto) 0.7 K/mcL (0.1-0.9); Monocytes % (Auto) 8.4 % (1.0-12.0); Platelet Count 145 K/mcL (140-440); RBC 2.81 M/mcL (4.50-5.90); Red Cell Distribution Width 14.6 % (11.5-14.5)
[2019-02-17] MEDS: DIAZEPAM 5 MG TABLET PO SCH ×3 (07:02→21:39)
[2019-02-17] MEDS: PANTOPRAZOLE 40 MG VIAL IV SCH ×2 (07:07→16:53)
[2019-02-17 07:31] LABS: ALT/SGPT 51 U/l (0-40); Albumin 3.6 gm/dL (3.2-5.2); Albumin/Globulin Ratio 1.5 (1.0-2.3); Alkaline Phosphatase 103 U/L (39-117); Bilirubin,Direct 0.3 mg/dL (0.0-0.3); Blood Urea Nitrogen 16 mg/dl (8-23); Gamma Glutamyl Transpeptidase 112 U/L (8-61); Uric Acid 4.4 mg/dL (2.5-8.0)
[2019-02-17] MEDS: INSULIN LISPRO 1 UNIT/0.01 ML UNIT SQ SCH ×4 (07:56→20:03)
[2019-02-17] MEDS ORDERED: MAGNESIUM SULFATE 2 GM/50 ML BAG IV ONE (08:22)
[2019-02-17] MEDS ORDERED: POTASSIUM PHOSPHATE 40 MEQ in DEXTROSE 5% IN WATER 500 ML IV ONE (08:22)
--- NOTE | 2019-02-17 08:35 | XRay Report ---
CLINICAL INFORMATION: hypoxia COMPARISON: 02/15/2019 FINDINGS: Heart is mildly enlarged - slightly increased. Mediastinum is unremarkable. Pulmonary vessels are mildly distended and there is mild interstitial edema. Minor bibasilar airspace disease is likely atelectasis. Small bilateral pleural effusions noted IMPRESSION: Mild CHF Mild bibasilar airspace disease - likely atelectasis Interpreted and Authenticated by: Saravanan Arreola 02/17/19
[2019-02-17] MEDS: HEPARIN 5,000 UNIT/ML VIAL SQ SCH ×2 (10:02→20:00)
[2019-02-17] MEDS: MULTIVIT,THER IRON,CA,FA & MIN 1 TABLET PO SCH (10:03)
[2019-02-17] MEDS: THIAMINE 100 MG TABLET PO SCH (10:03)
[2019-02-17] MEDS: FOLIC ACID 1 MG TABLET PO SCH (10:03)
[2019-02-17] MEDS: VANCOMYCIN 1,000 MG in 0.9 % SODIUM CHLORIDE 250 ML IV SCH ×2 (11:24→20:04)
[2019-02-17] MEDS: MUPIROCIN OINT 2% 22GM TOPICAL SCH ×3 (11:25→20:00)
--- NOTE | 2019-02-17 13:12 | Internal Med Progress Note ---
Medical - PN: Subj Patient information: Note initiated : 02/17/19 at 1:10 pm Service Date, if different from initiated Date: [] Patient: Torsten Marroquin 73 y/o M admitted on 02/15/19 for Weakness. Chief Complaint: [] Interval history: Mr. Marroquin is a 73 year old M with history of diabetes, heavy alcohol use, b rought to the hospital today by EMS for altered mental status. The patient does not remember the events this morning or afternoon that led to his coming to the hospital. He notes that as usual he drank his usual amount of alcohol. According to the chart it seems that his boot turner came to check on him, patient was altered did not recognize a boot turner had multiple bruises on himself and was incontinent of urine and feces. She referred the patient to the hospital. Glucose level by EMS and on presentation was normal. The patient was confused on in the emergency room, and altered, but able to answer questions. He noted that he had 2 ulcers that have been going on for the last 3 days, he has been weak, the patient admits to drinking up to 8 drinks of alcohol a day. The patient notes that he has balance issues because of his neuropathy and has frequent falls because of that. He is not sure what happened this morning however at the time of my evaluation he was alert oriented to time place and person. He denies any complaints. He noted that his toes have been red and swollen for the last few days, did not complain of much pain, because of neuropathy he is unable to have much sensation in his lower extremity. He admits to having chronic tremors and frequent falls, balance issues, the patient notes that when he stopped drinking alcohol because WelChol withdrawal. In the emergency room patient was afebrile on presentation 97.3, heart rate 77 blood pressure 133/72 respirations 22 saturating 100% on room air. Hemoglobin 11.4 WBC 10.4 platelets 188, lactic acid elevated at 4.9, sodium 124 potassium 3.9 glucose 84, creatinine 1.5 BUN 28, CK 433 BNP 1320 troponin is negative UA is clear to tox is negative urine alcohol level was 0.404. [place] EKG shows sinus rhythm QS pattern V1 V2. Chest x-ray is negative, head CT showed mild atrophy no acute changes Given patient had bilateral toe ulcers erythema, lactic acidosis weakness increased falls patient is being admitted to the hospital PCU status for further management. 02/16 Patient seen and examined, no acute overnight events, tolerating p.o. diet well was very nauseous this morning. Is in alcohol withdrawal C was scores between 7 and 13 on day 1, Continue monitoring for now, continue scheduled Valium and as needed Ativan, continue thiamine replacement IV PPI added, plan of care reviewed with him, case also reviewed with his PCP, who was graciously to come to the hospital today. 02/17 Patient seen and examined, no acute overnight events, no events on telemetry. Patient has severe CPAP and does desaturate at night. When awake his oxygen level is fine. C was scores ranging between 8-15. Patient is able to tolerate p.o. diet well, appreciate wound care input. Electrolites to be replaced Pertinent ROS: Denies headache, dizziness Denies chest pain, palpitations Denies cough or shortness of breath Denies abdominal pain, nausea or vomiting. - Constitutional Vitals: Vital Signs Temp Pulse Resp BP Pulse Ox 98.2 F 68 26 H 127/69 92 02/17/19 12:01 02/17/19 12:01 02/17/19 12:01 02/17/19 12:01 02/17/19 12:01 Period Temp Pulse Resp BP Sys/Martel Pulse Ox Last 24 Hr 98.2 F-99.9 F 64-84 7-26 102-158/51-120 92-100 Intake and Output 02/16/19 02/17/19 02/17/19 21:59 05:59 13:59 Intake Total 1200 1660 889 Output Total 675 1075 400 Balance 525 585 489 Weight 263 lb 3.2 oz Intake & Output: Intake & Output 02/16/19 02/17/19 02/17/19 21:59 05:59 13:59 Intake Total 1200 1660 889 Output Total 675 1075 400 Balance 525 585 489 Weight 263 lb 3.2 oz Intake: IV 50 1300 889 Lactated Ringers 1,000 ml @ 84 1000 539 mls/hr IV .[id number] [facility] Rx#: [id number] Zosyn 3.375 gm In Dextrose 5% 50 50 50 in Water 50 ml @ 100 mls/hr IV Q8H [facility] Rx#:[id number] Vancomycin 1,000 mg In Sodium 250 250 Chloride 0.9% 250 ml @ 250 mls/ hr IV Q12H [facility] Rx#:[id number] Oral 1150 360 Output: Urine Catheter Amount 175 1075 400 Void Amount 500 Other: Urine Appearance Clear Clear Carr Clear Clear Clear Urine Color Bright Yellow Dark Yellow Carr Dark Yellow Dark Yellow Dark [place] Exam: Constitutional; Afebrile, cooperative, alert, not in distress. Respiratory system: Air Entry equal on both sides, No crackles or wheezing, no rhonchi. CVS- Rate rhythm regular, S1,S2 heard, no gallop, no rub. Abdomen- Soft nontender abdomen, no organomegaly, no tenderness, no guarding or rigidity, FLAVORER- AOOx3, moving all extremities, no gross focal deficit noted. Medical - PN: Obj Da - Labs CBC & Chem 7: 02/17/19 03:55 02/17/19 03:55 Labs: Abnormal Lab Results 02/17/19 02/17/19 02/16/19 03:55 03:55 04:00 RBC 2.81 L Hgb 9.9 L Hct 30.4 L MCV 108.2 H MCH 35.3 H RDW 14.6 H MPV Gran % 83.0 H Lymph % (Auto) 8.2 L Lymph # (Auto) 0.7 L [place] # (Auto) VBG Lactic Acid 2.9 H Sodium 132 L Chloride 92 L Carbon Dioxide Anion Gap BUN Creatinine 1.4 H Glucose 161 H Calcium 8.5 L Phosphorus 1.4 L Magnesium 1.5 L Total Bilirubin 1.1 H Direct Bilirubin GGT 112 H AST 68 H ALT 51 H Lactate Dehydrogenase 294 H Total Creatine Kinase NT-Pro-B Natriuret Pep Ethyl Alcohol 02/16/19 02/16/19 02/15/19 03:40 03:40 21:03 RBC 2.90 L Hgb 10.3 L Hct 31.2 L MCV 107.8 H MCH 35.5 H RDW MPV Gran % 84.3 H Lymph % (Auto) 8.7 L Lymph # (Auto) 0.7 L [place] # (Auto) VBG Lactic Acid 4.2 H* Sodium 132 L Chloride 88 L Carbon Dioxide 17 L Anion Gap 27.0 H BUN Creatinine 1.3 H Glucose Calcium 8.5 L Phosphorus Magnesium Total Bilirubin Direct Bilirubin GGT 92 H AST 93 H ALT 57 H Lactate Dehydrogenase 301 H Total Creatine Kinase NT-Pro-B Natriuret Pep Ethyl Alcohol 02/15/19 02/15/19 02/15/19 13:29 12:58 12:58 RBC Hgb Hct MCV MCH RDW MPV Gran % Lymph % (Auto) Lymph # (Auto) [place] # (Auto) VBG Lactic Acid 4.9 H* Sodium Chloride Carbon Dioxide Anion Gap BUN Creatinine Glucose Calcium Phosphorus Magnesium Total Bilirubin Direct Bilirubin 0.4 H GGT AST 88 H ALT 52 H Lactate Dehydrogenase Total Creatine Kinase NT-Pro-B Natriuret Pep Ethyl Alcohol 0.404 H 02/15/19 02/15/19 12:58 12:58 RBC 3.19 L Hgb 11.4 L Hct 33.8 L MCV 105.9 H MCH 35.8 H RDW MPV 7.0 L Gran % Lymph % (Auto) 14.3 L Lymph # (Auto) [place] # (Auto) 1.0 H VBG Lactic Acid Sodium 124 L Chloride 78 L Carbon Dioxide 20 L Anion Gap 26.0 H BUN 28 H Creatinine 1.5 H Glucose Calcium Phosphorus Magnesium Total Bilirubin Direct Bilirubin GGT AST 90 H ALT 53 H Lactate Dehydrogenase Total Creatine Kinase 433 H NT-Pro-B Natriuret Pep 1324.0 H Ethyl Alcohol Meds: Medications Acetaminophen (Tylenol) 650 mg PO Q4-6HP PRN PRN Reason: PAIN/FEVER > 101 Last Admin: 02/17/19 03:21 Dose: 650 mg Documented by: Clonidine HCl (Catapres) 0.1 mg PO Q4HP PRN PRN Reason: Alcohol Withdrawal Last Admin: 02/17/19 03:21 Dose: 0.1 mg Documented by: Dextrose (Dextrose 50%) 0 ml IV UD PRN PRN Reason: Hypoglycemia Diagnostic Test (Pha) (Accu-Chek) 1 each FS ACHS [facility] Last Admin: 02/17/19 12:16 Dose: 1 each Documented by: Diazepam (Valium) 5 mg PO Q8 [facility] Last Admin: 02/17/19 07:02 Dose: 5 mg Documented by: Folic Acid (Folic Acid) 1 mg PO DAILY [facility] Last Admin: 02/17/19 10:03 Dose: 1 mg Documented by: Glucose (Insta-Glucose) 15 gm PO PRN PRN PRN Reason: Hypoglycemia Heparin Sodium (Porcine) (Heparin) 5,000 unit SQ Q12 [facility] Last Admin: 02/17/19 10:02 Dose: 5,000 unit Documented by: Piperacillin Sod/Tazobactam (Sod 3.375 gm/ Dextrose) 50 mls @ 100 mls/hr IV Q8H [facility]; Protocol Last Infusion: 02/17/19 06:01 Dose: Infused Documented by: Vancomycin HCl 1,000 mg/ (Sodium Chloride) 250 mls @ 250 mls/hr IV Q12H [facility] Last Infusion: 02/17/19 12:24 Dose: Infused Documented by: Lactated Ringer's (Lactated Ringers) 1,000 mls @ 84 mls/hr IV .[id number] [facility] Last Infusion: 02/17/19 10:04 Dose: 0 mls/hr Documented by: Insulin Human Lispro (Humalog) 0 unit SQ ACHS [facility]; Protocol Last Admin: 02/17/19 12:21 Dose: 2 unit Documented by: Iron Carb/Multivit/[place]/Folic Acid (Multivitamin W/Minerals) 1 tab PO DAILY [facility] Last Admin: 02/17/19 10:03 Dose: 1 tab Documented by: Lorazepam (Ativan) 0 mg IV Q4HP PRN; Protocol PRN Reason: Alcohol Withdrawal Last Admin: 02/17/19 03:09 Dose: 1 mg Documented by: Mupirocin (Bactroban Oint 2%) 1 dose TOPICAL TID [facility] Last Admin: 02/17/19 11:25 Dose: 1 dose Documented by: Naloxone HCl (Narcan) 0.1 mg IV Q2MIN PRN PRN Reason: Opiate Reversal Ondansetron HCl (Zofran) 4 mg IV Q4-6HP PRN PRN Reason: Nausea And Vomiting Last Admin: 02/16/19 22:00 Dose: 4 mg Documented by: Pantoprazole Sodium (Protonix) 40 mg IV BIDAC [facility] Last Admin: 02/17/19 07:07 Dose: 40 mg Documented by: Sodium Chloride (Saline Flush) 10 ml IV Q8 [facility] Last Admin: 02/17/19 07:07 Dose: 10 ml Documented by: Thiamine HCl (Vitamin B1) 100 mg PO DAILY [facility] Last Admin: 02/17/19 10:03 Dose: 100 mg Documented by: Vancomycin HCl (Vancomycin Per Pharmacy) 1 order IV UD [facility]; Protocol Medical - PN: A/P - Time Spent With Patient Total time spent is greater than 50% in coordination of care (as documented) at patient's floor/unit and/or counseling patient: - Narrative A/P Narrative: A/P Altered mental status/ Toxic vs septic encephalopathy -mental status seems back to baseline, likely from etoh intoxication, sepsis related? Sepsis with Lactic acidosis Cellulitis of toes/ lower extremities -Get CT of toes both, blood culture sent, IV vanco and zosyn for now, -Aggressive fluids, -lactic acid back to baseline -cultures are neg so far Bactermia -[facility] single bottle, coag neg staph, likely contaminant, repeat cultures done, pt on vanco Alcohol intoxication/ Alcohol withdrawal -high risk for withdrawal, -monitor on PCU status -ciwa protocol, yeny valium 5mg q8 -thiamine mv, folic acid -seizure precautions. -CIWA scores 8-15 CKD -creat is stable at 1.4 Hypokalemia/Hypophosphatemia/Hypomagnesemia -replace ROMA -CXR neg for pna -incentive spiromertery -Pt to try to get his cpap device from home. Peripheral neuropathy -from DM, rehab Weaknes/Debility -OT/PT eval DM -Hold oral meds, ssi insulin for glucose control HLD/ Obesity -continue outpatient management. DVT hep sq Diet carb consistent Full code. Medical - PN: Qual - VTE Deep Vein Thrombosis/Pulmonary Embolism Present on Admission: No
[2019-02-18] MEDS: LACTATED RINGERS 1,000 ML IV SCH (00:39)
[2019-02-18] MEDS: PIPERACILLIN SODIUM/TAZOBACTAM 3.375 GM in DEXTROSE 5% IN WATER 50 ML IV SCH ×3 (05:22→22:27)
[2019-02-18 05:23] LABS: Basophils # (Auto) 0 K/mcL (0.0-0.3); Basophils % (Auto) 0.5 % (0.0-2.0); Eosinophils # (Auto) 0.1 K/mcL (0.0-0.7); Eosinophils % (Auto) 1.7 % (0.0-7.0); Granulocytes % (Auto) 73.3 % (38.0-78.0); Lymphocytes # (Auto) 1.1 K/mcL (1.5-4.8); Lymphocytes % (Auto) 16.3 % (15.5-49.0); Mean Cell Volume 109.5 fL (80.0-100.0); Mean Corpuscular HGB Conc 32.5 g/dL (31.0-36.0); Monocytes # (Auto) 0.6 K/mcL (0.1-0.9); Monocytes % (Auto) 8.2 % (1.0-12.0); Platelet Count 130 K/mcL (140-440); RBC 2.88 M/mcL (4.50-5.90); Red Cell Distribution Width 14.5 % (11.5-14.5)
[2019-02-18] MEDS: 0.9 % SODIUM CHLORIDE 10 ML SYRINGE IV SCH ×3 (05:23→21:29)
[2019-02-18] MEDS: DIAZEPAM 5 MG TABLET PO SCH (05:32)
[2019-02-18 05:56] LABS: ALT/SGPT 47 U/l (0-40); Albumin 3.5 gm/dL (3.2-5.2); Albumin/Globulin Ratio 1.4 (1.0-2.3); Alkaline Phosphatase 101 U/L (39-117); Bilirubin,Direct 0.2 mg/dL (0.0-0.3); Blood Urea Nitrogen 9 mg/dl (8-23); Gamma Glutamyl Transpeptidase 112 U/L (8-61); Uric Acid 2.9 mg/dL (2.5-8.0)
[2019-02-18] MEDS: MULTIVIT,THER IRON,CA,FA & MIN 1 TABLET PO SCH (08:20)
[2019-02-18] MEDS: FOLIC ACID 1 MG TABLET PO SCH (08:20)
[2019-02-18] MEDS: HEPARIN 5,000 UNIT/ML VIAL SQ SCH ×2 (08:20→21:29)
[2019-02-18] MEDS: PANTOPRAZOLE 40 MG VIAL IV SCH (08:20)
[2019-02-18] MEDS: INSULIN LISPRO 1 UNIT/0.01 ML UNIT SQ SCH ×4 (08:21→21:32)
[2019-02-18] MEDS: THIAMINE 100 MG TABLET PO SCH (08:24)
[2019-02-18] MEDS ORDERED: MUPIROCIN OINT 2% 22GM TOPICAL SCH (09:00)
[2019-02-18] MEDS: VANCOMYCIN 1,000 MG in 0.9 % SODIUM CHLORIDE 250 ML IV SCH ×2 (09:00→21:28)
--- NOTE | 2019-02-18 10:15 | Internal Med Progress Note ---
Medical - PN: Subj Patient information: Note initiated : 02/18/19 at 10:01 am Service Date, if different from initiated Date: [] Patient: Torsten Marroquin 73 y/o M admitted on 02/15/19 for Weakness. Chief Complaint: [] Interval history: Mr. Marroquin is a 73 year old M with history of diabetes, heavy alcohol use, brought to the hospital today by EMS for altered mental status. The patient does not remember the events this morning or afternoon that led to his coming to the hospital. He notes that as usual he drank his usual amount of alcohol. According to the chart it seems that his digester came to check on him, patient was altered did not recognize a digester had multiple bruises on himself and was incontinent of urine and feces. She referred the patient to the hospital. Glucose level by EMS and on presentation was normal. The patient was confused on in the emergency room, and altered, but able to answer questions. He noted that he had 2 ulcers that have been going on for the last 3 days, he has been weak, the patient admits to drinking up to 8 drinks of alcohol a day. The patient notes that he has balance issues because of his neuropathy and has frequent falls because of that. He is not sure what happened this morning however at the time of my evaluation he was alert oriented to time place and person. He denies any complaints. He noted that his toes have been red and swollen for the last few days, did not complain of much pain, because of neuropathy he is unable to have much sensation in his lower extremity. He admits to having chronic tremors and frequent falls, balance issues, the patient notes that when he stopped drinking alcohol because WelChol withdrawal. In the emergency room patient was afebrile on presentation 97.3, heart rate 77 blood pressure 133/72 respirations 22 saturating 100% on room air. Hemoglobin 11.4 WBC 10.4 platelets 188, lactic acid elevated at 4.9, sodium 124 potassium 3.9 glucose 84, creatinine 1.5 BUN 28, CK 433 BNP 1320 troponin is negative UA is clear to tox is negative urine alcohol level was 0.404. [place] EKG shows sinus rhythm QS pattern V1 V2. Chest x-ray is negative, head CT showed mild atrophy no acute changes Given patient had bilateral toe ulcers erythema, lactic acidosis weakness increased falls patient is being admitted to the hospital PCU status for further management. 02/16 Patient seen and examined, no acute overnight events, tolerating p.o. diet well was very nauseous this morning. Is in alcohol withdrawal C was scores between 7 and 13 on day 1, Continue monitoring for now, continue scheduled Valium and as needed Ativan, continue thiamine replacement IV PPI added, plan of care reviewed with him, case also reviewed with his PCP, who was graciously to come to the hospital today. 02/17 Patient seen and examined, no acute overnight events, no events on telemetry. Patient has severe CPAP and does desaturate at night. When awake his oxygen level is fine. C was scores ranging between 8-15. Patient is able to tolerate p.o. diet well, appreciate wound care input. Electrolites to be replaced 02/18 Patient seen examined, no acute issues ciwa scores less than 10 now, patient tolerating po diet we no events on tele, labs stable. Pertinent ROS: ,Denies headache, dizziness Denies chest pain, palpitations Denies cough or shortness of breath Denies abdominal pain, nausea or vomiting. - Constitutional Vitals: Vital Signs Temp Pulse Resp BP Pulse Ox 99.3 F H 82 26 H 139/68 95 02/18/19 08:00 02/18/19 06:01 02/18/19 08:00 02/18/19 08:00 02/18/19 08:00 Period Temp Pulse Resp BP Sys/Martel Pulse Ox Last 24 Hr 98.0 F-99.3 F 68-82 16-26 113-161/59-81 87-96 Intake and Output 02/17/19 02/18/19 02/18/19 21:59 05:59 13:59 Intake Total 2619.0909 1171 360 Output Total 825 425 550 Balance 1794.0909 746 -190 Weight 269 lb 2 oz Intake & Output: Intake & Output 02/17/19 02/18/19 02/18/19 21:59 05:59 13:59 Intake Total 2619.0909 1171 360 Output Total 825 425 550 Balance 1794.0909 746 -190 Weight 269 lb 2 oz Intake: IV 559.0909 811 Lactated Ringers 1,000 ml @ 84 0 461 mls/hr IV .[id number] [facility] Rx#: [id number] Zosyn 3.375 gm In Dextrose 5% 50 100 in Water 50 ml @ 100 mls/hr IV Q8H [facility] Rx#:[id number] Potassium Phosphate 40 Meq In 509.0909 Dextrose 5% in Water 500 ml @ 127.273 mls/hr IV ONCE ONE Rx#: [id number] Vancomycin 1,000 mg In Sodium 250 Chloride 0.9% 250 ml @ 250 mls/ hr IV Q12H [facility] Rx#:[id number] Oral 2060 360 360 Output: Urine Catheter Amount 825 425 550 Other: Meal Dinner Breakfast Percent of Meal Consumed 100% 100% Feeding Ability Total Assistance Independent Urine Appearance Clear Clear Clear Carr Clear Clear Urine Color Dark Yellow Bright Yellow Bright Yellow Carr Dark Yellow Dark Yellow Urine Odor Normal Stool Size Moderate Stool Color Brown Stool Consistency Soft Formed # Bowel Movements 1 # Emeses 2 Exam: Constitutional; Afebrile, cooperative, alert, not in distress. Respiratory system: Air Entry equal on both sides, No crackles or wheezing, no rhonchi. CVS- Rate rhythm regular, S1,S2 heard, no gallop, no rub. Abdomen- Soft nontender abdomen, no organomegaly, no tenderness, no guarding or rigidity, MOTOR ELECTRICIAN- AOOx3, moving all extremities, no gross focal deficit noted. Lower extremities, covered in bandage. Medical - PN: Obj Da - Labs CBC & Chem 7: 02/18/19 03:45 02/18/19 03:45 Labs: Abnormal Lab Results 02/18/19 02/18/19 02/17/19 03:45 03:45 03:55 RBC 2.88 L Hgb 10.2 L Hct 31.5 L MCV 109.5 H MCH 35.5 H RDW Plt Count 130 L MPV Gran % Lymph % (Auto) Lymph # (Auto) 1.1 L [place] # (Auto) VBG Lactic Acid Sodium 132 L Chloride 94 L 92 L Carbon Dioxide Anion Gap BUN Creatinine 1.3 H 1.4 H Glucose 143 H 161 H Calcium 8.5 L Phosphorus 2.5 L 1.4 L Magnesium 1.5 L Total Bilirubin 1.1 H Direct Bilirubin GGT 112 H 112 H AST 51 H 68 H ALT 47 H 51 H Lactate Dehydrogenase 273 H 294 H Total Creatine Kinase NT-Pro-B Natriuret Pep Ethyl Alcohol 0302/16/19 02/16/19 03:55 04:00 03:40 RBC 2.81 L Hgb 9.9 L Hct 30.4 L MCV 108.2 H MCH 35.3 H RDW 14.6 H Plt Count MPV Gran % 83.0 H Lymph % (Auto) 8.2 L Lymph # (Auto) 0.7 L [place] # (Auto) VBG Lactic Acid 2.9 H Sodium 132 L Chloride 88 L Carbon Dioxide 17 L Anion Gap 27.0 H BUN Creatinine 1.3 H Glucose Calcium 8.5 L Phosphorus Magnesium Total Bilirubin Direct Bilirubin GGT 92 H AST 93 H ALT 57 H Lactate Dehydrogenase 301 H Total Creatine Kinase NT-Pro-B Natriuret Pep Ethyl Alcohol 02/16/19 02/15/19 02/15/19 03:40 21:03 13:29 RBC 2.90 L Hgb 10.3 L Hct 31.2 L MCV 107.8 H MCH 35.5 H RDW Plt Count MPV Gran % 84.3 H Lymph % (Auto) 8.7 L Lymph # (Auto) 0.7 L [place] # (Auto) VBG Lactic Acid 4.2 H* 4.9 H* Sodium Chloride Carbon Dioxide Anion Gap BUN Creatinine Glucose Calcium Phosphorus Magnesium Total Bilirubin Direct Bilirubin GGT AST ALT Lactate Dehydrogenase Total Creatine Kinase NT-Pro-B Natriuret Pep Ethyl Alcohol 02/15/19 02/15/19 02/15/19 12:58 12:58 12:58 RBC Hgb Hct MCV MCH RDW Plt Count MPV Gran % Lymph % (Auto) Lymph # (Auto) [place] # (Auto) VBG Lactic Acid Sodium 124 L Chloride 78 L Carbon Dioxide 20 L Anion Gap 26.0 H BUN 28 H Creatinine 1.5 H Glucose Calcium Phosphorus Magnesium Total Bilirubin Direct Bilirubin 0.4 H GGT AST 88 H 90 H ALT 52 H 53 H Lactate Dehydrogenase Total Creatine Kinase 433 H NT-Pro-B Natriuret Pep 1324.0 H Ethyl Alcohol 0.404 H 02/15/19 12:58 RBC 3.19 L Hgb 11.4 L Hct 33.8 L MCV 105.9 H MCH 35.8 H RDW Plt Count MPV 7.0 L Gran % Lymph % (Auto) 14.3 L Lymph # (Auto) [place] # (Auto) 1.0 H VBG Lactic Acid Sodium Chloride Carbon Dioxide Anion Gap BUN Creatinine Glucose Calcium Phosphorus Magnesium Total Bilirubin Direct Bilirubin GGT AST ALT Lactate Dehydrogenase Total Creatine Kinase NT-Pro-B Natriuret Pep Ethyl Alcohol Meds: Medications Acetaminophen (Tylenol) 650 mg PO Q4-6HP PRN PRN Reason: PAIN/FEVER > 101 Last Admin: 02/17/19 03:21 Dose: 650 mg Documented by: Clonidine HCl (Catapres) 0.1 mg PO Q4HP PRN PRN Reason: Alcohol Withdrawal Last Admin: 02/17/19 03:21 Dose: 0.1 mg Documented by: Dextrose (Dextrose 50%) 0 ml IV UD PRN PRN Reason: Hypoglycemia Diagnostic Test (Pha) (Accu-Chek) 1 each FS [facility] Last Admin: 02/18/19 08:10 Dose: 1 each Documented by: Folic Acid (Folic Acid) 1 mg PO DAILY [facility] Last Admin: 02/18/19 08:20 Dose: 1 mg Documented by: Glucose (Insta-Glucose) 15 gm PO PRN PRN PRN Reason: Hypoglycemia Heparin Sodium (Porcine) (Heparin) 5,000 unit SQ Q12 [facility] Last Admin: 02/18/19 08:20 Dose: 5,000 unit Documented by: Piperacillin Sod/Tazobactam (Sod 3.375 gm/ Dextrose) 50 mls @ 100 mls/hr IV Q8H [facility]; Protocol Last Infusion: 02/18/19 05:55 Dose: Infused Documented by: Vancomycin HCl 1,000 mg/ (Sodium Chloride) 250 mls @ 250 mls/hr IV Q12H [facility] Last Admin: 02/18/19 09:00 Dose: 250 mls/hr Documented by: Insulin Human Lispro (Humalog) 0 unit SQ [facility]; Protocol Last Admin: 02/18/19 08:21 Dose: 1 unit Documented by: Iron Carb/Multivit/[place]/Folic Acid (Multivitamin W/Minerals) 1 tab PO DAILY [facility] Last Admin: 02/18/19 08:20 Dose: 1 tab Documented by: Lorazepam (Ativan) 0 mg IV Q4HP PRN; Protocol PRN Reason: Alcohol Withdrawal Last Admin: 02/17/19 03:09 Dose: 1 mg Documented by: Mupirocin (Bactroban Oint 2%) 1 dose TOPICAL DAILY [facility] Last Admin: 02/18/19 08:20 Dose: 1 dose Documented by: Naloxone HCl (Narcan) 0.1 mg IV Q2MIN PRN PRN Reason: Opiate Reversal Ondansetron HCl (Zofran) 4 mg IV Q4-6HP PRN PRN Reason: Nausea And Vomiting Last Admin: 02/16/19 22:00 Dose: 4 mg Documented by: Pantoprazole Sodium (Protonix) 40 mg IV BIDAC [facility] Last Admin: 02/18/19 08:20 Dose: 40 mg Documented by: Sodium Chloride (Saline Flush) 10 ml IV Q8 [facility] Last Admin: 02/18/19 05:23 Dose: Not Given Documented by: Thiamine HCl (Vitamin B1) 100 mg PO DAILY [facility] Last Admin: 02/18/19 08:24 Dose: 100 mg Documented by: Vancomycin HCl (Vancomycin Per Pharmacy) 1 order IV UD [facility]; Protocol Medical - PN: A/P - Time Spent With Patient Total time spent is greater than 50% in coordination of care (as documented) at patient's floor/unit and/or counseling patient: - Narrative A/P Narrative: A/P Altered mental status/ Toxic vs septic encephalopathy -resolved, Sepsis with Lactic acidosis -resolved Cellulitis of toes/ lower extremities -Improving clincally -wound care following Bactermia -[facility] single bottle, coag neg staph, likely contaminant, repeat cultures done, pt on vanc -repeat cx are neg so far Alcohol intoxication/ Alcohol withdrawal -ciwa scores less than 10 -d/c [facility] valium -continue supplements -xfer to med surg Obstructive sleep apnea -on CPAP continue same MOrbid obesity, BMI 40.9 -outpatient management CKD -creat is stable at baseline Hypokalemia/Hypophosphatemia/Hypomagnesemia -replace ROMA -CXR neg for pna -incentive spiromertery -Pt to try to get his cpap device from home. Peripheral neuropathy -from DM, rehab Weaknes/Debility -OT/PT eval DM -Hold oral meds, ssi insulin for glucose control DVT hep sq Diet carb consistent Full code. Xfer to med surg status. Medical - PN: Qual - VTE Deep Vein Thrombosis/Pulmonary Embolism Present on Admission: No
[2019-02-18] MEDS ORDERED: ONDANSETRON 4 MG/2 ML VIAL IV PRN (10:24)
[2019-02-18] MEDS ORDERED: VANCOMYCIN PER PHARMACY IV SCH (10:24)
[2019-02-18] MEDS ORDERED: ACETAMINOPHEN 325 MG TABLET PO PRN (10:24)
[2019-02-18] MEDS ORDERED: NALOXONE HCL 0.4 MG/ML VIAL IV PRN (10:24)
[2019-02-18] MEDS ORDERED: DEXTROSE 31 GM ORAL.SUSP PO PRN (10:24)
[2019-02-18] MEDS ORDERED: LORazepam 2 MG/ML VIAL IV PRN (10:24)
[2019-02-18] MEDS ORDERED: DEXTROSE 50% 50 ML VIAL IV PRN (10:24)
[2019-02-18] MEDS: ATORVASTATIN 20 MG TABLET PO SCH (21:29)
[2019-02-19 05:11] LABS: Basophils # (Auto) 0 K/mcL (0.0-0.3); Basophils % (Auto) 0.2 % (0.0-2.0); Eosinophils # (Auto) 0.1 K/mcL (0.0-0.7); Eosinophils % (Auto) 2.2 % (0.0-7.0); Granulocytes % (Auto) 70.8 % (38.0-78.0); Lymphocytes # (Auto) 1.1 K/mcL (1.5-4.8); Lymphocytes % (Auto) 17.5 % (15.5-49.0); Mean Cell Volume 109.5 fL (80.0-100.0); Mean Corpuscular HGB Conc 32.3 g/dL (31.0-36.0); Monocytes # (Auto) 0.6 K/mcL (0.1-0.9); Monocytes % (Auto) 9.3 % (1.0-12.0); Platelet Count 137 K/mcL (140-440); RBC 2.79 M/mcL (4.50-5.90); Red Cell Distribution Width 14.7 % (11.5-14.5)
[2019-02-19] MEDS: PIPERACILLIN SODIUM/TAZOBACTAM 3.375 GM in DEXTROSE 5% IN WATER 50 ML IV SCH ×3 (05:30→23:24)
[2019-02-19] MEDS: 0.9 % SODIUM CHLORIDE 10 ML SYRINGE IV SCH ×3 (05:30→22:08)
[2019-02-19 05:34] LABS: ALT/SGPT 42 U/l (0-40); Albumin 3.4 gm/dL (3.2-5.2); Albumin/Globulin Ratio 1.4 (1.0-2.3); Alkaline Phosphatase 89 U/L (39-117); Bilirubin,Direct < 0.2 mg/dL (0.0-0.3); Blood Urea Nitrogen 8 mg/dl (8-23); Gamma Glutamyl Transpeptidase 109 U/L (8-61); Uric Acid 2.2 mg/dL (2.5-8.0)
[2019-02-19] MEDS: INSULIN LISPRO 1 UNIT/0.01 ML UNIT SQ SCH ×4 (07:28→22:09)
[2019-02-19] MEDS: POTASSIUM CHLORIDE 10 MEQ TABLET PO SCH (07:34)
[2019-02-19] MEDS: PANTOPRAZOLE 40 MG TABLET PO SCH (07:34)
[2019-02-19] MEDS ORDERED: MAGNESIUM SULFATE 2 GM/50 ML BAG IV ONE (08:38)
[2019-02-19] MEDS ORDERED: MAGNESIUM OXIDE 400 MG TABLET PO SCH (09:00)
[2019-02-19] MEDS: HEPARIN 5,000 UNIT/ML VIAL SQ SCH ×2 (09:36→22:25)
[2019-02-19] MEDS: MUPIROCIN OINT 2% 22GM TOPICAL SCH (09:36)
[2019-02-19] MEDS: PROPRANOLOL 80 MG CAP.XL.24H PO SCH (09:36)
[2019-02-19] MEDS: ASPIRIN 81 MG TAB.CHEW PO SCH (09:37)
[2019-02-19] MEDS: MULTIVIT,THER IRON,CA,FA & MIN 1 TABLET PO SCH (09:37)
[2019-02-19] MEDS: MAGNESIUM OXIDE 400 MG TABLET PO SCH ×2 (09:37→22:25)
[2019-02-19] MEDS: THIAMINE 100 MG TABLET PO SCH (09:38)
[2019-02-19] MEDS: CYANOCOBALAMIN (VITAMIN B-12) 500 MCG TABLET PO SCH (09:38)
[2019-02-19] MEDS: FOLIC ACID 1 MG TABLET PO SCH (09:38)
[2019-02-19] MEDS: FUROSEMIDE 40 MG TABLET PO SCH (09:38)
[2019-02-19] MEDS: ALLOPURINOL 300 MG TABLET PO SCH (09:39)
[2019-02-19] MEDS: VANCOMYCIN 1,000 MG in 0.9 % SODIUM CHLORIDE 250 ML IV SCH ×2 (10:55→21:57)
--- NOTE | 2019-02-19 11:54 | Internal Med Progress Note ---
Medical - PN: Subj Patient information: Note initiated : 02/19/19 at 11:52 am Service Date, if different from initiated Date: [] Patient: Torsten Marroquin 73 y/o M admitted on 02/15/19 for Weakness. Chief Complaint: [] Interval history: Mr. Marroquin is a 73 year old M with history of diabetes, heavy alcohol use, brought to the hospital today by EMS for altered mental status. The patient does not remember the events this morning or afternoon that led to his coming to the hospital. He notes that as usual he drank his usual amount of alcohol. According to the chart it seems that his executive housekeeper came to check on him, patient was altered did not recognize a executive housekeeper had multiple bruises on himself and was incontinent of urine and feces. She referred the patient to the hospital. Glucose level by EMS and on presentation was normal. The patient was confused on in the emergency room, and altered, but able to answer questions. He noted that he had 2 ulcers that have been going on for the last 3 days, he has been weak, the patient admits to drinking up to 8 drinks of alcohol a day. The patient notes that he has balance issues because of his neuropathy and has frequent falls because of that. He is not sure what happened this morning however at the time of my evaluation he was alert oriented to time place and person. He denies any complaints. He noted that his toes have been red and swollen for the last few days, did not complain of much pain, because of neuropathy he is unable to have much sensation in his lower extremity. He admits to having chronic tremors and frequent falls, balance issues, the patient notes that when he stopped drinking alcohol because WelChol withdrawal. In the emergency room patient was afebrile on presentation 97.3, heart rate 77 blood pressure 133/72 respirations 22 saturating 100% on room air. Hemoglobin 11.4 WBC 10.4 platelets 188, lactic acid elevated at 4.9, sodium 124 potassium 3.9 glucose 84, creatinine 1.5 BUN 28, CK 433 BNP 1320 troponin is negative UA is clear to tox is negative urine alcohol level was 0.404. [place] EKG shows sinus rhythm QS pattern V1 V2. Chest x-ray is negative, head CT showed mild atrophy no acute changes Given patient had bilateral toe ulcers erythema, lactic acidosis weakness increased falls patient is being admitted to the hospital PCU status for further management. 02/16 Patient seen and examined, no acute overnight events, tolerating p.o. diet well was very nauseous this morning. Is in alcohol withdrawal C was scores between 7 and 13 on day 1, Continue monitoring for now, continue scheduled Valium and as needed Ativan, continue thiamine replacement IV PPI added, plan of care reviewed with him, case also reviewed with his PCP, who was graciously to come to the hospital today. 02/17 Patient seen and examined, no acute overnight events, no events on telemetry. Patient has severe CPAP and does desaturate at night. When awake his oxygen level is fine. C was scores ranging between 8-15. Patient is able to tolerate p.o. diet well, appreciate wound care input. Electrolites to be replaced 02/18 Patient seen examined, no acute issues ciwa scores less than 10 now, patient tolerating po diet we no events on tele, labs stable. 02/19 Patient seen examined, no acute overnight issues doing well, no new complaints, Pertinent ROS: Denies headache, dizziness Denies chest pain, palpitations Denies cough or shortness of breath Denies abdominal pain, nausea or vomiting. - Constitutional Vitals: Vital Signs Temp Pulse Resp BP Pulse Ox 98.5 F 79 18 163/90 95 02/19/19 07:53 02/19/19 08:00 02/19/19 07:53 02/19/19 07:53 02/19/19 07:53 Period Temp Pulse Resp BP Sys/Martel Pulse Ox Last 24 Hr 98.0 F-100.0 F 75-89 14-18 136-163/76-90 93-97 Intake and Output 02/18/19 02/19/19 02/19/19 21:59 05:59 13:59 Intake Total 890 1030 50 Output Total 1575 1350 2350 Balance -685 -320 -2300 Weight 273 lb Intake & Output: Intake & Output 02/18/19 02/19/19 02/19/19 21:59 05:59 13:59 Intake Total 890 1030 50 Output Total 1575 1350 2350 Balance -685 -320 -2300 Weight 273 lb Intake: IV 50 550 50 Zosyn 3.375 gm In Dextrose 5% 50 50 50 in Water 50 ml @ 100 mls/hr IV Q8H [facility] Rx#:[id number] Vancomycin 1,000 mg In Sodium 250 Chloride 0.9% 250 ml @ 250 mls/ hr IV Q12H [facility] Rx#:[id number] Oral 840 480 Output: Urine Catheter Amount 1575 1350 2350 Other: Meal Dinner Percent of Meal Consumed 75% Feeding Ability Independent Urine Appearance Clear Carr Clear Urine Color Bright Yellow Carr Dark Yellow Exam: Constitutional; Afebrile, cooperative, alert, not in distress. Respiratory system: Air Entry equal on both sides, No crackles or wheezing, no rhonchi. CVS- Rate rhythm regular, S1,S2 heard, no gallop, no rub. Abdomen- Soft nontender abdomen, no organomegaly, no tenderness, no guarding or rigidity, DATABASE ENGINEER- AOOx3, moving all extremities, no gross focal deficit noted. Medical - PN: Obj Da - Labs CBC & Chem 7: 02/19/19 04:30 02/19/19 04:30 Labs: Abnormal Lab Results 02/19/19 02/19/19 02/18/19 04:30 04:30 03:45 RBC 2.79 L Hgb 9.9 L Hct 30.6 L MCV 109.5 H MCH 35.4 H RDW 14.7 H Plt Count 137 L MPV 7.1 L Gran % Lymph % (Auto) Lymph # (Auto) 1.1 L Sodium Chloride 94 L Creatinine 1.3 H 1.3 H Glucose 140 H 143 H Uric Acid 2.2 L Calcium Phosphorus 2.5 L Magnesium 1.5 L Total Bilirubin GGT 109 H 112 H AST 41 H 51 H ALT 42 H 47 H Lactate Dehydrogenase 273 H 02/18/19 02/17/19 02/17/19 03:45 03:55 03:55 RBC 2.88 L 2.81 L Hgb 10.2 L 9.9 L Hct 31.5 L 30.4 L MCV 109.5 H 108.2 H MCH 35.5 H 35.3 H RDW 14.6 H Plt Count 130 L MPV Gran % 83.0 H Lymph % (Auto) 8.2 L Lymph # (Auto) 1.1 L 0.7 L Sodium 132 L Chloride 92 L Creatinine 1.4 H Glucose 161 H Uric Acid Calcium 8.5 L Phosphorus 1.4 L Magnesium 1.5 L Total Bilirubin 1.1 H GGT 112 H AST 68 H ALT 51 H Lactate Dehydrogenase 294 H Meds: Medications Acetaminophen (Tylenol) 650 mg PO Q4-6HP PRN PRN Reason: PAIN/FEVER > 101 Allopurinol (Zylopriim) 300 mg PO DAILY [facility] Last Admin: 02/19/19 09:39 Dose: 300 mg Documented by: Aspirin (Aspirin) 81 mg PO DAILY [facility] Last Admin: 02/19/19 09:37 Dose: 81 mg Documented by: Atorvastatin Calcium (Lipitor) 20 mg PO HS [facility] Last Admin: 02/18/19 21:29 Dose: 20 mg Documented by: Cyanocobalamin (Vitamin B-12) 1,000 mcg PO DAILY [facility] Last Admin: 02/19/19 09:38 Dose: 1,000 mcg Documented by: Dextrose (Dextrose 50%) 0 ml IV UD PRN PRN Reason: Hypoglycemia Diagnostic Test (Pha) (Accu-Chek) 1 each FS ACHS [facility] Last Admin: 02/19/19 07:27 Dose: 1 each Documented by: Folic Acid (Folic Acid) 1 mg PO DAILY [facility] Last Admin: 02/19/19 09:38 Dose: 1 mg Documented by: Furosemide (Lasix) 40 mg PO DAILY [facility] Last Admin: 02/19/19 09:38 Dose: 40 mg Documented by: Glucose (Insta-Glucose) 15 gm PO PRN PRN PRN Reason: Hypoglycemia Heparin Sodium (Porcine) (Heparin) 5,000 unit SQ Q12 [facility] Last Admin: 02/19/19 09:36 Dose: 5,000 unit Documented by: Piperacillin Sod/Tazobactam (Sod 3.375 gm/ Dextrose) 50 mls @ 100 mls/hr IV Q8H [facility]; Protocol Last Infusion: 02/19/19 06:08 Dose: Infused Documented by: Vancomycin HCl 1,000 mg/ (Sodium Chloride) 250 mls @ 250 mls/hr IV Q12H [facility] Last Admin: 02/19/19 10:55 Dose: 250 mls/hr Documented by: Insulin Human Lispro (Humalog) 0 unit SQ ACHS [facility]; Protocol Last Admin: 02/19/19 07:28 Dose: Not Given Documented by: Iron Carb/Multivit/Adel/Folic Acid (Multivitamin W/Minerals) 1 tab PO DAILY [facility] Last Admin: 02/19/19 09:37 Dose: 1 tab Documented by: Lorazepam (Ativan) 0 mg IV Q4HP PRN; Protocol PRN Reason: Alcohol Withdrawal Magnesium Oxide (Magnesium Oxide) 400 mg PO BID [facility] Last Admin: 02/19/19 09:37 Dose: 400 mg Documented by: Mupirocin (Bactroban Oint 2%) 1 dose TOPICAL DAILY [facility] Last Admin: 02/19/19 09:36 Dose: 1 dose Documented by: Naloxone HCl (Narcan) 0.1 mg IV Q2MIN PRN PRN Reason: Opiate Reversal Ondansetron HCl (Zofran) 4 mg IV Q4-6HP PRN PRN Reason: Nausea And Vomiting Pantoprazole [facility] ([facility]ix) [facility] Admin: 02/19/19 07:34 Dose: 40 mg Documented by: Potassium Chloride (Kdur) 10 meq [facility] Last Admin: 02/19/19 07:34 Dose: 10 meq Documented by: Propranolol HCl (Inderal La) 80 mg PO DAILY [facility] Last Admin: 02/19/19 09:36 Dose: 80 mg Documented by: Sodium Chloride (Saline Flush) 10 ml IV Q8 [facility] Last Admin: 02/19/19 05:30 Dose: 10 ml Documented by: Thiamine HCl (Vitamin B1) 100 mg PO DAILY [facility] Last Admin: 02/19/19 09:38 Dose: 100 mg Documented by: Vancomycin HCl (Vancomycin Per Pharmacy) 1 order IV [facility] [place]; Protocol Medical - PN: A/P - Time Spent With Patient Total time spent is greater than 50% in coordination of care (as documented) at patient's floor/unit and/or counseling patient: - Narrative A/P Narrative: A/P Altered mental status/ Toxic vs septic encephalopathy -resolved, Sepsis with Lactic acidosis -resolved Cellulitis of toes/ lower extremities -Improving clincally -wound care following Bactermia -[facility] single bottle, coag neg staph, likely contaminant, repeat cultures done, pt on vanc -repeat cx are neg so far Alcohol intoxication/ Alcohol withdrawal -ciwa scores less than 10 -d/c [facility] valium -continue supplements -xfer to med surg Obstructive sleep apnea -on CPAP continue same MOrbid obesity, BMI 40.9 -outpatient management CKD -creat is stable at baseline Hypokalemia/Hypophosphatemia/Hypomagnesemia -replace ROMA -CXR neg for pna -incentive spiromertery -Pt to try to get his cpap device from home. Peripheral neuropathy -from DM, rehab Weaknes/Debility -OT/PT eval DM -Hold oral meds, ssi insulin for glucose control DVT hep sq Diet carb consistent Full code. anticipate d/c to SNF in AM Medical - PN: Qual - VTE Deep Vein Thrombosis/Pulmonary Embolism Present on Admission: No
--- NOTE | 2019-02-19 17:13 | Discharge Summary ---
Medical - DS: Prov Patient information: Note initiated : 02/19/19 at 5:07 pm Service Date, if different from initiated Date: [] Patient: Torsten Marroquin 73 y/o M admitted on 02/15/19 for Weakness. Chief Complaint: [] Date of admission: 02/15/19 19:42 Discharge date: 02/20/19 Primary care physician: Sancho Martell Consults: 02/15/19 16:52 Consult to Physician [CONS] Stat Comment: Consulting Provider: Jai Rodriguez Reason For Exam: Physician to Consult 02/15/19 19:55 Consult to Physician [CONS] Stat Comment: Consulting Provider: Higinio Birmingham Reason For Exam: Physician to Consult Medical - DS: Meds - Discharge Medications Prescriptions: Amoxicillin/Potassium Clav [Augmentin] 875 mg PO Q12H #6 tab Lactobacillus [Culturelle] 1 cap PO BID #60 cap Thiamine [Vitamin B1] 100 mg PO DAILY #30 tab Active and Home Medications: Home Medications Allopurinol [Zyloprim] 300 mg PO DAILY 05/02/18 [History Confirmed 02/17/19 Last Taken Unknown] Atorvastatin [Lipitor] 20 mg PO HS 05/02/18 [History Confirmed 02/17/19 Last Taken Unknown] Folic Acid 1 mg PO DAILY 05/02/18 [History Confirmed 02/17/19 Last Taken Unknown] Furosemide [Lasix] 40 mg PO DAILY 05/02/18 [History Confirmed 02/17/19 Last Taken Unknown] Pantoprazole [Protonix] 40 mg PO QAMAC 05/02/18 [History Confirmed 02/17/19 Last Taken Unknown] Potassium Chloride [Kdur] 10 meq PO DAILY 05/02/18 [History Confirmed 02/17/19 Last Taken Unknown] Propranolol [Inderal LA] 80 mg PO DAILY 05/02/18 [History Confirmed 02/17/19 Last Taken Unknown] metFORMIN HCL [Fortamet] 500 mg PO BID 05/02/18 [History Confirmed 02/17/19 Last Taken Unknown] Aspirin [Sera Chewable Aspirin] 81 mg PO DAILY 02/17/19 [History Confirmed 02/17/19 Last Taken Unknown] Calcium Carbonate [Calcium] 1,000 mg PO DAILY 02/17/19 [History Confirmed 02/17/19 Last Taken Unknown] Magnesium Oxide [Magnesium] 500 mg PO DAILY 02/17/19 [History Confirmed 02/17/19 Last Taken Unknown] Vitamin B12 1,000 mcg PO DAILY 02/17/19 [History Confirmed 02/17/19 Last Taken Unknown] Medical - DS: Hosp Hospital course: Mr. Marroquin is a 73 year old M Mr. Marroquin is a 73 year old M with history of diabetes, heavy alcohol use, brought to the hospital today by EMS for altered mental status. The patient does not remember the events this morning or afternoon that led to his coming to the hospital. He notes that as usual he drank his usual amount of alcohol. According to the chart it seems that his business solutions consultant came to check on him, patient was altered did not recognize a business solutions consultant had multiple bruises on himself and was incontinent of urine and feces. She referred the patient to the hospital. Glucose level by EMS and on presentation was normal. The patient was confused on in the emergency room, and altered, but able to answer questions. He noted that he had 2 ulcers that have been going on for the last 3 days, he has been weak, the patient admits to drinking up to 8 drinks of alcohol a day. The patient notes that he has balance issues because of his neuropathy and has frequent falls because of that. He is not sure what happened this morning however at the time of my evaluation he was alert oriented to time place and person. He denies any complaints. He noted that his toes have been red and swollen for the last few days, did not complain of much pain, because of neuropathy he is unable to have much sensation in his lower extremity. He admits to having chronic tremors and frequent falls, balance issues, the patient notes that when he stopped drinking alcohol because WelChol withdrawal. In the emergency room patient was afebrile on presentation 97.3, heart rate 77 blood pressure 133/72 respirations 22 saturating 100% on room air. Hemoglobin 11.4 WBC 10.4 platelets 188, lactic acid elevated at 4.9, sodium 124 potassium 3.9 glucose 84, creatinine 1.5 BUN 28, CK 433 BNP 1320 troponin is negative UA is clear to tox is negative urine alcohol level was 0.404. [place] EKG shows sinus rhythm QS pattern V1 V2. Chest x-ray is negative, head CT showed mild atrophy no acute changes Given patient had bilateral toe ulcers erythema, lactic acidosis weakness increased falls patient is being admitted to the hospital PCU status for further management. 02/16 Patient seen and examined, no acute overnight events, tolerating p.o. diet well was very nauseous this morning. Is in alcohol withdrawal C was scores between 7 and 13 on day 1, Continue monitoring for now, continue scheduled Valium and as needed Ativan, continue thiamine replacement IV PPI added, plan of care reviewed with him, case also reviewed with his PCP, who was graciously to come to the hospital today. 02/17 Patient seen and examined, no acute overnight events, no events on telemetry. Patient has severe CPAP and does desaturate at night. When awake his oxygen level is fine. C was scores ranging between 8-15. Patient is able to tolerate p.o. diet well, appreciate wound care input. Electrolites to be replaced 02/18 Patient seen examined, no acute issues ciwa scores less than 10 now, patient tolerating po diet we no events on tele, labs stable. 02/19 Patient seen examined, no acute overnight issues doing well, no new complaints, 02/20 Patient feeling well, looks well. Stable for discharge, and patient looking forward to discharge Discharge diagnosis: Toxic versus septic encephalopathy altered mental status sepsis cellulitis Secondary discharge diagnosis: Cellulitis of the toes alcohol intoxication with withdrawal obstructive sleep apnea, morbid obesity, chronic kidney disease, electrolyte abnormality, peripheral neuropathy, weakness and debility, diabetes - Time Spent with Patient Total time spent providing and/or coordinating discharge services: Greater than 30 minutes Medical - DS: Exam - Constitutional Vitals: Vital Signs Temp Pulse Resp BP Pulse Ox 02/19/19 12:00 97.6 F 85 20 176/92 94 02/19/19 08:00 79 02/19/19 07:53 98.5 F 18 163/90 95 02/19/19 03:54 98.9 F 75 14 150/80 94 02/18/19 23:25 98.8 F 84 16 154/83 93 02/18/19 20:00 98.0 F 89 16 156/84 93 Intake and Output 02/19/19 02/19/19 02/19/19 05:59 13:59 21:59 Intake Total 1030 300 Output Total 1350 2350 Balance -320 Intake: IV 550 300 Zosyn 3.375 gm In Dextrose 5% 50 50 in Water 50 ml @ 100 mls/hr IV Q8H [facility] Rx#:[id number] Vancomycin 1,000 mg In Sodium 250 250 Chloride 0.9% 250 ml @ 250 mls/ hr IV Q12H [facility] Rx#:[id number] Oral 480 Output: Urine Catheter Amount 1350 2350 Other: Meal Lunch Percent of Meal Consumed 100% Feeding Ability Independent Urine Appearance Clear Carr Clear Urine Color Bright Yellow Carr Dark Yellow Medical - DS: Data Labs on day of discharge: Labs from last 24 hours 02/19/19 02/19/19 04:30 04:30 WBC 6.3 RBC 2.79 L Hgb 9.9 L Hct 30.6 L MCV 109.5 H MCH 35.4 H MCHC 32.3 RDW 14.7 H Plt Count 137 L MPV 7.1 L Gran % 70.8 Lymph % (Auto) 17.5 [place] % (Auto) 9.3 Eos % (Auto) 2.2 Baso % (Auto) 0.2 Gran # 4.5 Lymph # (Auto) 1.1 L [place] # (Auto) 0.6 Eos # (Auto) 0.1 Baso # (Auto) 0 Sodium 134 Potassium 3.6 Chloride 97 Carbon Dioxide 27 Anion Gap 10.0 BUN 8 Creatinine 1.3 H GFR Calculation 55 Glucose 140 H Uric Acid 2.2 L Calcium 8.9 Phosphorus 3.0 Magnesium 1.5 L Total Bilirubin 0.5 Direct Bilirubin < 0.2 GGT 109 H AST 41 H ALT 42 H Alkaline Phosphatase 89 Lactate Dehydrogenase 236 Total Protein 5.9 Albumin 3.4 Globulin 2.5 Albumin/Globulin Ratio 1.4 Triglycerides 82 Preliminary micro results at discharge 02/15/19 13:19 Blood Culture - Preliminary Blood 02/16/19 11:43 Blood Culture - Preliminary Blood 02/16/19 11:36 Blood Culture - Preliminary Blood 02/15/19 13:26 Blood Culture - Preliminary Blood Gram positive cocci Medical - DS: A/P - Patient/Caregiver Discharge Instructions Activity: as per physical therapy Diet: Consistent Carbohydrate Prescriptions: Amoxicillin/Potassium Clav [Augmentin] 875 mg PO Q12H #6 tab Lactobacillus [Culturelle] 1 cap PO BID #60 cap Thiamine [Vitamin B1] 100 mg PO DAILY #30 tab - Follow up Plan Follow up with: Higinio Birmingham MD [Physician] - (follow up 1 week after discharge at [facility] for bilateral Great Toe wounds) Sancho Martell MD [Primary Care Provider] - Disposition: Xfer SNF Prognosis: Serious Rehab Potential: Fair I certify that the patient requires SNF services: Yes Overall status at discharge: patient is back to baseline Medical - DS: Qual - VTE Deep Vein Thrombosis/Pulmonary Embolism Present on Admission: No
[2019-02-19] MEDS: ATORVASTATIN 20 MG TABLET PO SCH (22:25)
[2019-02-20 06:06] LABS: Basophils # (Auto) 0 K/mcL (0.0-0.3); Basophils % (Auto) 0.3 % (0.0-2.0); Eosinophils # (Auto) 0.2 K/mcL (0.0-0.7); Eosinophils % (Auto) 2.9 % (0.0-7.0); Granulocytes % (Auto) 75.1 % (38.0-78.0); Lymphocytes % (Auto) 12.3 % (15.5-49.0); Mean Cell Volume 107.7 fL (80.0-100.0); Mean Corpuscular HGB Conc 33.1 g/dL (31.0-36.0); Monocytes # (Auto) 0.7 K/mcL (0.1-0.9); Monocytes % (Auto) 9.4 % (1.0-12.0); Platelet Count 160 K/mcL (140-440); RBC 3.06 M/mcL (4.50-5.90); Red Cell Distribution Width 15.1 % (11.5-14.5)
[2019-02-20 06:37] LABS: ALT/SGPT 43 U/l (0-40); Albumin 3.6 gm/dL (3.2-5.2); Albumin/Globulin Ratio 1.3 (1.0-2.3); Alkaline Phosphatase 97 U/L (39-117); Bilirubin,Direct < 0.2 mg/dL (0.0-0.3); Blood Urea Nitrogen 10 mg/dl (8-23); Gamma Glutamyl Transpeptidase 125 U/L (8-61); Uric Acid 2.1 mg/dL (2.5-8.0)
[2019-02-20] MEDS: PIPERACILLIN SODIUM/TAZOBACTAM 3.375 GM in DEXTROSE 5% IN WATER 50 ML IV SCH (06:48)
[2019-02-20] MEDS: 0.9 % SODIUM CHLORIDE 10 ML SYRINGE IV SCH (06:48)
[2019-02-20] MEDS: INSULIN LISPRO 1 UNIT/0.01 ML UNIT SQ SCH ×2 (08:17→14:41)
[2019-02-20] MEDS: CYANOCOBALAMIN (VITAMIN B-12) 500 MCG TABLET PO SCH (08:17)
[2019-02-20] MEDS: FOLIC ACID 1 MG TABLET PO SCH (08:18)
[2019-02-20] MEDS: THIAMINE 100 MG TABLET PO SCH (08:18)
[2019-02-20] MEDS: FUROSEMIDE 40 MG TABLET PO SCH (08:18)
[2019-02-20] MEDS: ALLOPURINOL 300 MG TABLET PO SCH (08:18)
[2019-02-20] MEDS: MULTIVIT,THER IRON,CA,FA & MIN 1 TABLET PO SCH (08:18)
[2019-02-20] MEDS: ASPIRIN 81 MG TAB.CHEW PO SCH (08:18)
[2019-02-20] MEDS: POTASSIUM CHLORIDE 10 MEQ TABLET PO SCH (08:18)
[2019-02-20] MEDS: PANTOPRAZOLE 40 MG TABLET PO SCH (08:18)
[2019-02-20] MEDS: MUPIROCIN OINT 2% 22GM TOPICAL SCH (08:18)
[2019-02-20] MEDS: PROPRANOLOL 80 MG CAP.XL.24H PO SCH (08:18)
[2019-02-20] MEDS: HEPARIN 5,000 UNIT/ML VIAL SQ SCH (08:18)
[2019-02-20] MEDS: MAGNESIUM OXIDE 400 MG TABLET PO SCH (08:18)
== END 2019-02-20 15:30 | DRG 871 ==
LOC: ED 12:26 → ICU 19:42 → MEDSUR 02-18 15:40
PROVIDERS: ADMIT Internal Medicine; ATTEND Internal Medicine

== ENCOUNTER 2021-09-30 09:57 | Inpatient (IN) ==
--- NOTE | 2021-09-30 10:30 | Emergency Department Note ---
SOB HPI General Chief Complaint: Shortness of Breath/Dyspnea Stated Complaint: shortness of breath, abd pain Time Seen by Provider: 09/30/21 10:04 Source: patient Mode of arrival: wheelchair Limitations: no limitations History of Present Illness HPI Narrative: Patient is a 76-year-old gentleman who arrives emergency department by private vehicle complaining of shortness of breath. The patient says he has been having shortness of breath for the past week. This was gradual in onset and has been progressively worsening. He denies any associated cough fever or chills. He is not have any associated chest pain. He notes that he has been having worsening bilateral lower extremity edema and significant weight gain. He finds it lying flat makes the shortness of breath worse. Sitting up makes his symptoms better. The patient was treated for similar symptoms on August 27 and had significant improvement with diuresis. Patient also notes he has been having abdominal pain for the past week. This is also been gradual in onset progressively worsening. He notes a sense of abdominal distention associated with the symptoms. The abdominal pain is poorly localized. He denies any associated nausea vomiting or diarrhea. He has not had any fever or chills. Patient has been fully vaccinated against COVID-19. Related Data Home Medications Medication Instructions Recorded Confirmed allopurinol [Zyloprim] 300 mg PO DAILY 05/02/18 07/07/21 folic acid 1 mg PO DAILY 05/02/18 07/07/21 pantoprazole 40 mg PO QAMAC 05/02/18 07/07/21 Vitamin B12 1,000 mcg PO DAILY 02/17/19 07/07/21 aspirin 81 mg PO DAILY 02/17/19 07/07/21 calcium carbonate 1,000 mg PO DAILY 02/17/19 07/07/21 magnesium oxide 500 mg PO DAILY 02/17/19 07/07/21 alogliptin 12.5 mg tablet 12.5 mg PO QDAY 05/30/20 07/07/21 ascorbic acid (vitamin C) 500 mg mg PO 05/30/20 07/07/21 capsule atorvastatin 20 mg tablet 40 mg PO HS tab 05/30/20 07/07/21 hydrocortisone 2.5 % topical cream 1 applic TOPICAL BID PRN 05/30/20 07/07/21 gabapentin 300 mg capsule See Rx Instructions .ROUTE .COMPLEX 07/07/21 07/07/21 Previous Rx's Medication Instructions Recorded thiamine mononitrate (vit B1) 100 mg PO DAILY #30 tab 02/19/19 propranolol 80 mg capsule,24 80 mg PO BID #180 cap 07/01/20 hr,extended release amlodipine 5 mg tablet 5 mg PO QDAY #90 tab 12/31/20 eplerenone 25 mg tablet 25 mg PO QDAY #30 tab 08/19/21 azithromycin [Zithromax Z-Sedrick] See Rx Instructions .ROUTE 08/27/21 .COMPLEX #6 tab Allergies Allergy/AdvReac Type Severity Reaction Status Date / Time No Known Drug Allergies Allergy Verified 08/27/21 09:28 Review of Systems ROS ROS Narrative: Narrative: All systems ED: reviewed and negative except as stated. 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) Back pain (Chronic) Obese (Chronic) Diabetes (Chronic) Hypertension (Chronic) Alcohol abuse (Chronic) Tremor (Chronic) Neuropathy (Chronic) Gallbladder problem (Chronic) History of ETOH poisoning (Chronic) Obstructive sleep apnea (Chronic) Osteoarthritis (Chronic) Prostate cancer (Chronic) Mild cognitive disorder (Chronic) Alcohol dependence (Chronic) Morbid obesity (Chronic) Hyperlipidemia (Chronic) GERD (gastroesophageal reflux disease) (Chronic) History of colonoscopy (Acute ~2013) Hyperuricemia (Acute) DM type 2 (diabetes mellitus, type 2) (Acute) CKD stage G3b/A3, GFR 30-44 and albumin creatinine ratio >300 mg/g (Acute) Gout due to renal impairment, left hip (Acute) Hyponatremia (Acute) Skin tear (Acute) Edema leg (Acute) CHF (congestive heart failure) (Acute) Pneumonia (Acute) Elevated troponin (Acute) Congestive heart failure (Acute) Medical History Alcohol abuse Alcohol dependence Back pain Diabetes Gallbladder problem GERD (gastroesophageal reflux disease) History of ETOH poisoning Hyperlipidemia Hypertension Mild cognitive disorder Morbid obesity Neuropathy Obese Obstructive sleep apnea Osteoarthritis Prostate cancer Tremor Surgical History History of colonoscopy (~2013) Family History Other No pertinent family history Social History Smoking Status: Former smoker Alcohol Intake Frequency: 2+ drinks per day (Patient consumes about 6 mixed drinks every day) Substance Use: does not use Exam Narrative Narrative: I reviewed the vital signs. Gen -patient is awake and alert and appears slightly uncomfortable but in no acute distress. The patient is well groomed. HEENT -head is atraumatic. There is no conjunctival pallor or scleral icterus. Mucous membranes are moist. CV -S1-S2 regular rate and rhythm. Peripheral pulses are palpable. There is no JVD. Resp -breathing is slightly labored with tachypnea while on supplemental oxygen via nasal cannula. The patient is able to speak in short sentences but has significantly increased work of breathing after prolonged conversation. Lungs h ave moderate rales bilaterally. There is no cyanosis. GI - Abdomen is somewhat distended and mildly tender to palpation in the right upper quadrant. There is no guarding or rebound tenderness. Derm -skin is warm and dry. There is no visible rash. MSK -present extremities are atraumatic. There is severe pitting edema bilateral lower extremities Psych -patient has appropriate affect. The patient does not appear internally stimulated. Neuro -patient answers questions appropriately with fluent speech. Patient moves all present extremities equally. General Limitations: no limitations Course Vital Signs Vital signs: Vital Signs Temperature 98.4 F 09/30/21 09:58 Pulse Rate 70 09/30/21 09:58 Respiratory Rate 30 H 09/30/21 09:58 Blood Pressure 186/92 09/30/21 09:58 Pulse Oximetry (%) 85 L 09/30/21 09:58 Temperature 98.4 F 09/30/21 09:58 Pulse Rate 62 09/30/21 12:48 Respiratory Rate 28 H 09/30/21 12:48 Blood Pressure 162/75 09/30/21 12:47 Pulse Oximetry (%) 91 09/30/21 12:48 [facility] MDM Narrative Medical decision making narrative: I personally performed interpreted a limited bedside transthoracic echocardiogram. Obtain parasternal long and short axis view as well as an apical four-chamber view. Views were slightly limited by the patient's body habitus. There is no pericardial effusion. Left ventricular ejection fraction is mildly decreased. There is no evidence of right ventricular strain. I also performed interpreted a limited bedside pulmonary ultrasound. Lung jeffries are B-lines predominant bilaterally. I also obtain views of the pericolic gutters. There is no visible free intraperitoneal fluid. Patient presents with shortness of breath. Examination ultrasonographic and chest x-ray findings are concerning for pulmonary edema. Labs remarkable for an elevated BNP and a normal troponin. He does have a leukocytosis but given his lack of infectious symptoms I do not think this signifies a serious bacterial infection. He was given sublingual nitroglycerin and IV furosemide with minimal change in his symptoms. I discussed the test results and my clinical impression with the patient. He is agreeable with the plan for admission and further diuresis. I discussed the patient's history examination and diagnostic findings with Dr. Herzog, who agrees with the plan of care and accepts admission. Critical care time I provided 32 minutes of critical care time. This was in addition to any separately billable procedures. The patient was given supplemental oxygen to treat his hypoxemic respiratory failure. He was given nitrates and diuretics to treat the causative congestive heart failure.. The patient was closely monitored for response to treatment and stability of vital signs throughout their emergency department stay. Lab Data Lab results reviewed: Yes I reviewed the patient's lab results. Result diagrams: 09/30/21 10:24 09/30/21 10:24 Labs: Lab Results 09/30/21 09/30/21 09/30/21 Range/Units 10:24 10:24 10:25 WBC 15.9 H (4.5-11.0) K/mcL RBC 4.06 L (4.63-6.08) M/mcL Hgb 14.0 (13.7-17.5) g/dL Hct 41.1 (40.1-51.0) % POC Hct 45 (41-55) % MCV 101.2 H (80.0-100.0) fL MCH 34.5 H (26.0-34.0) pg MCHC 34.1 (31.0-36.0) g/dL RDW 13.4 (11.5-14.5) % Plt Count 240 (140-440) K/mcL MPV 10.4 (7.4-10.4) fL Neut % (Auto) 87.4 H (38.0-78.0) % Lymph % (Auto) 6.1 L (15.5-49.0) % [place] % (Auto) 5.7 (1.0-12.0) % Eos % (Auto) 0.3 (0.0-7.0) % Baso % (Auto) 0.5 (0.0-2.0) % Lymph # (Auto) 0.96 L (1.50-4.80) K/mcL [place] # (Auto) 0.90 (0.10-0.90) K/mcL Eos # (Auto) 0.05 (0.00-0.70) K/mcL Baso # (Auto) 0.08 (0.00-0.30) K/mcL Absolute Neutrophils 13.87 H (1.80-8.00) K/mcL POC PT (11.9-14.5) sec POC INR (0.8-1.2) POC Sodium 127 L (133-145) mEq/L Sodium 128 L (133-145) mmol/L POC Potassium 4.8 (3.3-5.1) mEql/L Potassium 5.4 H (3.3-5.1) mmol/L POC Chloride 95 L (96-108) mEq/L Chloride 89 L (96-108) mmol/L Carbon Dioxide 17 L (22-30) mmol/L POC Total CO2 22 (22-30) mmol/L Anion Gap 22.0 H (8.0-16.0) POC BUN 24 H (6-20) mg/dL BUN 21 (8-23) mg/dL Creatinine 1.6 H (0.7-1.2) mg/dL POC Creatinine 1.7 H (0.6-1.2) mg/dL GFR Calculation 42 Glucose 170 H (70-105) mg/dL POC Glucose 170 H (70-105) mg/dL Calcium 9.7 (8.6-10.4) mg/dL POC WB Ioniz Calcium 1.13 L (1.16-1.32) mmEq/L Total Bilirubin 1.4 H (0.1-1.0) mg/dL AST 25 (<40) U/L ALT 23 (<40) U/L Alkaline Phosphatase 193 H (39-117) U/L Troponin T < 0.01 (<0.03) ng/mL NT-Pro-B Natriuret Pep 7090.0 H (<125.0) pg/mL Total Protein 7.5 (5.9-8.4) gm/dL Albumin 4.2 (3.2-5.2) gm/dL Globulin 3.3 (2.2-3.7) gm/dL Albumin/Globulin Ratio 1.3 (1.0-2.3) 09/30/21 Range/Units 11:03 WBC (4.5-11.0) K/mcL RBC (4.63-6.08) M/mcL Hgb (13.7-17.5) g/dL Hct (40.1-51.0) % POC Hct (41-55) % MCV (80.0-100.0) fL MCH (26.0-34.0) pg MCHC (31.0-36.0) g/dL RDW (11.5-14.5) % Plt Count (140-440) K/mcL MPV (7.4-10.4) fL Neut % (Auto) (38.0-78.0) % Lymph % (Auto) (15.5-49.0) % [place] % (Auto) (1.0-12.0) % Eos % (Auto) (0.0-7.0) % Baso % (Auto) (0.0-2.0) % Lymph # (Auto) (1.50-4.80) K/mcL [place] # (Auto) (0.10-0.90) K/mcL Eos # (Auto) (0.00-0.70) K/mcL Baso # (Auto) (0.00-0.30) K/mcL Absolute Neutrophils (1.80-8.00) K/mcL POC PT 13.4 (11.9-14.5) sec POC INR 1.1 (0.8-1.2) POC Sodium (133-145) mEq/L Sodium (133-145) mmol/L POC Potassium (3.3-5.1) mEql/L Potassium (3.3-5.1) mmol/L POC Chloride (96-108) mEq/L Chloride (96-108) mmol/L Carbon Dioxide (22-30) mmol/L POC Total CO2 (22-30) mmol/L Anion Gap (8.0-16.0) POC BUN (6-20) mg/dL BUN (8-23) mg/dL Creatinine (0.7-1.2) mg/dL POC Creatinine (0.6-1.2) mg/dL GFR Calculation Glucose (70-105) mg/dL POC Glucose (70-105) mg/dL Calcium (8.6-10.4) mg/dL POC WB Ioniz Calcium (1.16-1.32) mmEq/L Total Bilirubin (0.1-1.0) mg/dL AST (<40) U/L ALT (<40) U/L Alkaline Phosphatase (39-117) U/L Troponin T (<0.03) ng/mL NT-Pro-B Natriuret Pep (<125.0) pg/mL Total Protein (5.9-8.4) gm/dL Albumin (3.2-5.2) gm/dL Globulin (2.2-3.7) gm/dL Albumin/Globulin Ratio (1.0-2.3) ED POC Tests ED POC Tests: GLO - Influenza A Negative GLO - Influenza B Negative GLO - SARS Antigen Negative EKG Data EKG #1: EKG attestation: Yes I reviewed and interpreted this EKG. EKG results narrative: EKG performed at 10:05 AM: Sinus rhythm with sinus irregularity, rate 63. Bifid P waves. Left bundle branch block without Sgarbossa's criteria normal [place] duration. QTc is borderline prolonged at 500 no old EKG immediately available for comparison. EKG was interpreted by me. Discharge Plan Patient/Caregiver Discharge Instructions Pt seen by [employer] WORKER/PA only: No Clinical Impression: Congestive heart failure Patient Disposition: Xfer As Inpt ([facility]) Condition: Fair Follow up with: Jimena Jackson ARNP [Primary Care Provider] - Prescriptions: No Action eplerenone [Inspra] 25 mg tablet 25 mg PO QDAY Qty: 30 RF: 11 hydrocortisone 2.5 % cream 1 applic TOPICAL BID PRNRF: 0 alogliptin 12.5 mg tablet 12.5 mg PO QDAY RF: 0 ascorbic acid (vitamin C) 500 mg capsule PO RF: 0 gabapentin 300 mg capsule See Rx Instructions .ROUTE .COMPLEX RF: 0 propranolol 80 mg capsule,extended release 24 hr 80 mg PO BID Qty: 180 RF: 3 amlodipine 5 mg tablet 5 mg PO QDAY Qty: 90 RF: 4 pantoprazole 40 MG tablet 40 mg PO QAMAC RF: 0 folic acid 1 MG tablet 1 mg PO DAILY RF: 0 allopurinol [Zyloprim] 300 MG tablet 300 mg PO DAILY RF: 0 atorvastatin 20 mg tablet 40 mg PO HS RF: 0 calcium carbonate 500 MG tablet 1,000 mg PO DAILY RF: 0 aspirin 81 MG tablet,chewable 81 mg PO DAILY RF: 0 magnesium oxide 250 MG tablet 500 mg PO DAILY RF: 0 Vitamin B12 1,000 MCG tablet 1,000 mcg PO DAILY RF: 0 thiamine mononitrate (vit B1) 100 MG tablet 100 mg PO DAILY Qty: 30 RF: 0 azithromycin [Zithromax Z-Sedrick] 250 mg tablet See Rx Instructions .ROUTE .COMPLEX Qty: 6 RF: 0
[2021-09-30 10:39] LABS: POC Blood Urea Nitrogen 24 mg/dL (6-20); POC CO2 22 mmol/L (22-30); POC Calcium, Ionized 1.13 mmEq/L (1.16-1.32); POC Chloride 95 mEq/L (96-108); POC Creatinine 1.7 mg/dL (0.6-1.2); POC Glucose, Random 170 mg/dL (70-105); POC Hematocrit 45 % (41-55); POC Potassium 4.8 mEql/L (3.3-5.1); POC Sodium 127 mEq/L (133-145)
[2021-09-30] MEDS ORDERED: NITROGLYCERIN 0.4 MG TAB.SUBL SL ONE (11:00)
[2021-09-30] MEDS ORDERED: FUROSEMIDE 40 MG/4 ML VIAL IV ONE (11:00)
[2021-09-30 11:07] LABS: POC INR 1.1 (0.8-1.2); POC Pro Time 13.4 sec (11.9-14.5)
[2021-09-30 11:27] LABS: Basophils # (Auto) 0.08 K/mcL (0.00-0.30); Basophils % (Auto) 0.5 % (0.0-2.0); Eosinophils # (Auto) 0.05 K/mcL (0.00-0.70); Eosinophils % (Auto) 0.3 % (0.0-7.0); Hematocrit 41.1 % (40.1-51.0); Lymphocytes # (Auto) 0.96 K/mcL (1.50-4.80); Lymphocytes % (Auto) 6.1 % (15.5-49.0); Mean Cell Volume 101.2 fL (80.0-100.0); Mean Corpuscular HGB Conc 34.1 g/dL (31.0-36.0); Mean Platelet Volume 10.4 fL (7.4-10.4); Monocytes % (Auto) 5.7 % (1.0-12.0); Neutrophils % (Auto) 87.4 % (38.0-78.0); Platelet Count 240 K/mcL (140-440); RBC 4.06 M/mcL (4.63-6.08); Red Cell Distribution Width 13.4 % (11.5-14.5); WBC 15.9 K/mcL (4.5-11.0)
[2021-09-30 11:46] LABS: ALT/SGPT 23 U/L (<40); AST/SGOT 25 U/L (<40); Albumin 4.2 gm/dL (3.2-5.2); Albumin/Globulin Ratio 1.3 (1.0-2.3); Alkaline Phosphatase 193 U/L (39-117); Bilirubin,Total 1.4 mg/dL (0.1-1.0); Blood Urea Nitrogen 21 mg/dL (8-23); Calcium 9.7 mg/dL (8.6-10.4); Carbon Dioxide 17 mmol/L (22-30); Chloride 89 mmol/L (96-108); Globulin 3.3 gm/dL (2.2-3.7); Glomerular Filtration Rate 42; Glucose 170 mg/dL (70-105)
--- NOTE | 2021-09-30 11:54 | XRay Report ---
INDICATION: dyspnea TECHNIQUE: AP portable semiupright chest x-ray COMPARISON: Previous chest x-rays dated 08/27/2021, 02/17/2019 FINDINGS: Lungs:No parenchymal consolidation or mass Heart, vascular:There is cardiomegaly. Vascularity is prominent with peribronchial thickening and bibasilar infiltrates. There is pleural fluid, right worse than left. Appearance is consistent with congestive heart failure. Effusions are worse than on 08/27/2020 Mediastinum, shilpa:No mediastinal widening. No hilar mass Pleura:Pleural effusions, right worse than left Skeletal:Negative. IMPRESSION: 1. Cardiomegaly and findings consistent with congestive heart failure 2. Findings are slightly worse than on 08/27/2021 Interpreted and Authenticated by: Saravanan Barr 09/30/21
[2021-09-30] MEDS ORDERED: ONDANSETRON 4 MG/2 ML VIAL IV PRN ×2 (13:40→15:22)
[2021-09-30] MEDS ORDERED: 0.9 % SODIUM CHLORIDE 10 ML SYRINGE IV SCH (14:00)
[2021-09-30 15:44] LABS: Hemoglobin A1C 6.2 % Hgb (4.0-6.0)
[2021-09-30] MEDS ORDERED: FUROSEMIDE 100 MG/10 ML VIAL IV SCH (18:35)
[2021-09-30 19:41] LABS: Blood Urea Nitrogen 25 mg/dL (8-23); Calcium 9.5 mg/dL (8.6-10.4); Carbon Dioxide 20 mmol/L (22-30); Chloride 90 mmol/L (96-108); Glomerular Filtration Rate 42; Glucose 159 mg/dL (70-105)
[2021-09-30 19:52] LABS: Free T4 (Free Thyroxine) 1.12 ng/dL (0.93-1.70); Thyroid Stimulating Hormone 2.47 uIU/mL (0.27-5.01)
--- NOTE | 2021-09-30 19:54 | Internal Med History&Physical ---
HPI History of Present Illness Patient information: Note initiated : 09/30/21 at 7:39 pm Service Date, if different from initiated Date: [] Patient: Torsten Marroquin 76 y/o M admitted on 09/30/21 for shortness of breath, abd pain. Chief Complaint: [difficult breathing] History of present illness: Mr. Marroquin is a 76 year old M with CKD 3 and diabetes says has gained 7lbs fluid in last week. Was admitted for CHF 07/2021. not very responsive to diuretics. Wt now 298 and he is 5'8". Pt with diabetes states BS runs in the 150 range. has sleep apnea but uses cpap 19 and sleeps through the night. denies chest pain or orthopnea. admits to severe leg swelling. Pt had covid vaccine 3-4 months ago. denies cough or fever drinks 5-7 shots vodka daily at the bar. doesnt drink at home alone. goes there to socialize because due to neuropathy cant do anything anymore. 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 Constitutional Constitutional: Present as per HPI; Absent lethargy, night sweats and weight loss Cardiovascular Cardiovascular: Present dyspnea on exertion and pedal edema; Absent chest pain and rapid heart rate Respiratory Respiratory: Present dyspnea on exertion; Absent cough, hemoptysis, wheezing and excessive phlegm production Gastrointestinal Gastrointestinal: Present abdominal pain; Absent constipation, hematemesis and hematochezia Genitourinary Genitourinary: change in urinary stream and other (had prostatectomy years ago) Musculoskeletal Musculoskeletal: Absent muscle weakness, numbness and tingling Neurological Neurological: Present paresthesias and sensory deficit; Absent abnormal speech and behavioral changes PFSH PFSH All Active Problems (Updated 09/30/21 @ 19:53 by Alex Herzog MD) Pre-ulcerative corn or callous (Acute) Congestive heart failure (Acute) Elevated lactic acid level (Chronic) Bilateral great toes ulcers (Chronic) 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) Back pain (Chronic) Obese (Chronic) Diabetes (Chronic) Hypertension (Chronic) Alcohol abuse (Chronic) Tremor (Chronic) Neuropathy (Chronic) Gallbladder problem (Chronic) History of ETOH poisoning (Chronic) Obstructive sleep apnea (Chronic) Osteoarthritis (Chronic) Prostate cancer (Chronic) Mild cognitive disorder (Chronic) Alcohol dependence (Chronic) Morbid obesity (Chronic) Hyperlipidemia (Chronic) GERD (gastroesophageal reflux disease) (Chronic) History of colonoscopy (Acute ~2013) Hyperuricemia (Acute) DM type 2 (diabetes mellitus, type 2) (Acute) CKD stage G3b/A3, GFR 30-44 and albumin creatinine ratio >300 mg/g (Acute) Gout due to renal impairment, left hip (Acute) Hyponatremia (Acute) Skin tear (Acute) Edema leg (Acute) Pneumonia (Acute) Elevated troponin (Acute) Medical History Alcohol abuse Alcohol dependence Back pain Diabetes Gallbladder problem GERD (gastroesophageal reflux disease) History of ETOH poisoning Hyperlipidemia Hypertension Mild cognitive disorder Morbid obesity Neuropathy Obese Obstructive sleep apnea Osteoarthritis Prostate cancer Tremor Surgical History History of colonoscopy (~2012) Family History Other No pertinent family history Social History (Updated 09/30/21 @ 19:44 by Alex Herzog MD) marital status: occupational status: disabled pets and animals: No leisure activities: other other: bar smoking status: Former smoker smoking status stop date: 11/29/69 alcohol intake frequency: 2+ drinks per day (Patient consumes about 6 mixed drinks every day) counseling provided: provider counseling substance use type: does not use additional history: wants full code son Emeka Marroquin is next of kin sister Sangeeta Payne also ok for medical discussion and opinion MEDS/ALLERGIES Home Medications and Allergies Home Medications Medication Instructions Recorded Confirmed Type allopurinol [Zyloprim] 300 mg PO DAILY 05/02/18 07/07/21 History folic acid 1 mg PO DAILY 05/02/18 07/07/21 History pantoprazole 40 mg PO QAMAC 05/02/18 07/07/21 History Vitamin B12 1,000 mcg PO DAILY 02/17/19 07/07/21 History aspirin 81 mg PO DAILY 02/17/19 07/07/21 History calcium carbonate 1,000 mg PO DAILY 02/17/19 07/07/21 History magnesium oxide 500 mg PO DAILY 02/17/19 07/07/21 History thiamine mononitrate (vit B1) 100 mg PO DAILY #30 tab 02/19/19 07/07/21 Rx alogliptin 12.5 mg tablet 12.5 mg PO QDAY 05/30/20 07/07/21 History ascorbic acid (vitamin C) 500 mg mg PO 05/30/20 07/07/21 History capsule atorvastatin 20 mg tablet 40 mg PO HS tab 05/30/20 07/07/21 History hydrocortisone 2.5 % topical cream 1 applic TOPICAL BID PRN 05/30/20 07/07/21 History propranolol 80 mg capsule,24 80 mg PO BID #180 cap 07/01/20 07/07/21 Rx hr,extended release amlodipine 5 mg tablet 5 mg PO QDAY #90 tab 12/31/20 07/07/21 Rx gabapentin 300 mg capsule See Rx Instructions .ROUTE .COMPLEX 07/07/21 07/07/21 History eplerenone 25 mg tablet 25 mg PO QDAY #30 tab 08/19/21 Rx azithromycin [Zithromax Z-Sedrick] See Rx Instructions .ROUTE 08/27/21 Rx .COMPLEX #6 tab Allergies Allergy/AdvReac Type Severity Reaction Status Date / Time No Known Drug Allergies Allergy Verified 09/30/21 17:23 EXAM Constitutional Vitals: Temp Pulse Resp BP Pulse Ox 98.0 F 82 18 156/85 93 09/30/21 16:00 09/30/21 16:00 09/30/21 16:00 09/30/21 16:00 09/30/21 16:00 Additional findings Additional findings: GEN WDWN morbidly obese WM in NAD CV RRR Lungs Crackles heard in bases bilat Abd soft Obese mild right upper quadrant tenderness Calves 3+ to 4/edema no hip or groin edema mentation alert and oriented x 3 skin warm and dry left halux medial hemorrhagic corn 1 cm diameter not ulcerated or tender no fluctuant. DATA Data Completed and Pending Labs: Labs from last 24 hours 09/30/21 09/30/21 09/30/21 18:41 18:41 18:41 WBC RBC Hgb Hct POC Hct MCV MCH MCHC RDW Plt Count MPV Neut % (Auto) Lymph % (Auto) [place] % (Auto) Eos % (Auto) Baso % (Auto) Lymph # (Auto) [place] # (Auto) Eos # (Auto) Baso # (Auto) Absolute Neutrophils POC PT POC INR POC Sodium Sodium Pending POC Potassium Potassium Pending POC Chloride Chloride Pending Carbon Dioxide Pending POC Total CO2 Anion Gap Pending POC BUN BUN Pending Creatinine Pending POC Creatinine GFR Calculation Pending Glucose Pending POC Glucose Hemoglobin A1c Estim Average Glucose Calcium Pending POC WB Ioniz Calcium Total Bilirubin AST ALT Alkaline Phosphatase Troponin T NT-Pro-B Natriuret Pep Total Protein Albumin Globulin Albumin/Globulin Ratio TSH Pending Free T4 Pending Cortisol PM Sample Pending 09/30/21 09/30/21 09/30/21 11:03 10:25 10:24 WBC RBC Hgb Hct POC Hct MCV MCH MCHC RDW Plt Count MPV Neut % (Auto) Lymph % (Auto) [place] % (Auto) Eos % (Auto) Baso % (Auto) Lymph # (Auto) [place] # (Auto) Eos # (Auto) Baso # (Auto) Absolute Neutrophils POC PT 13.4 POC INR 1.1 POC Sodium Sodium POC Potassium Potassium POC Chloride Chloride Carbon Dioxide POC Total CO2 Anion Gap POC BUN BUN Creatinine POC Creatinine GFR Calculation Glucose POC Glucose Hemoglobin A1c 6.2 H Estim Average Glucose 131 Calcium POC WB Ioniz Calcium Total Bilirubin AST ALT Alkaline Phosphatase Troponin T < 0.01 NT-Pro-B Natriuret Pep Total Protein Albumin Globulin Albumin/Globulin Ratio TSH Free T4 Cortisol PM Sample 09/30/21 09/30/21 10:24 10:24 WBC 15.9 H RBC 4.06 L Hgb 14.0 Hct 41.1 POC Hct 45 MCV 101.2 H MCH 34.5 H MCHC 34.1 RDW 13.4 Plt Count 240 MPV 10.4 Neut % (Auto) 87.4 H Lymph % (Auto) 6.1 L [place] % (Auto) 5.7 Eos % (Auto) 0.3 Baso % (Auto) 0.5 Lymph # (Auto) 0.96 L [place] # (Auto) 0.90 Eos # (Auto) 0.05 Baso # (Auto) 0.08 Absolute Neutrophils 13.87 H POC PT POC INR POC Sodium 127 L Sodium 128 L POC Potassium 4.8 Potassium 5.4 H POC Chloride 95 L Chloride 89 L Carbon Dioxide 17 L POC Total CO2 22 Anion Gap 22.0 H POC BUN 24 H BUN 21 Creatinine 1.6 H POC Creatinine 1.7 H GFR Calculation 42 Glucose 170 H POC Glucose 170 H Hemoglobin A1c Estim Average Glucose Calcium 9.7 POC WB Ioniz Calcium 1.13 L Total Bilirubin 1.4 H AST 25 ALT 23 Alkaline Phosphatase 193 H Troponin T NT-Pro-B Natriuret Pep 7090.0 H Total Protein 7.5 Albumin 4.2 Globulin 3.3 Albumin/Globulin Ratio 1.3 TSH Free T4 Cortisol PM Sample A/P Assessment and plan (1) Congestive heart failure: Status: Acute Comment: pt with mild decreased EF on EMD bedside echo. Will need to diurese and have formal TTE. start BIPAP here tonight change to iv bumex and oral metolazone and start low na diabetic diet (2) CKD stage G3b/A3, GFR 30-44 and albumin creatinine ratio >300 mg/g: Status: Acute Comment: daily BMP and telemetry with diuresis (3) Alcohol abuse: Status: Chronic Comment: monitor for withdrawal. pt says has not happened in the past when quit despite drinking more (4) Pre-ulcerative corn or callous: Status: Acute Comment: says sees fabric stretcher regularly Time Spent With Patient Time: Total time spent is greater than 50% in coordination of care (as documented) at patient's floor/unit and/or counseling patient: 70 mins
[2021-09-30] MEDS ORDERED: SENNOSIDES 1 TABLET PO SCH (21:00)
[2021-09-30] MEDS ORDERED: DOCUSATE SODIUM 100 MG CAPSULE PO SCH (21:00)
[2021-09-30] MEDS: DOCUSATE SODIUM 100 MG CAPSULE PO SCH (21:22)
[2021-09-30] MEDS: SENNOSIDES 1 TABLET PO SCH (21:23)
[2021-09-30] MEDS: METOLAZONE 2.5 MG TABLET PO SCH (21:45)
[2021-09-30] MEDS: METOPROLOL TARTRATE 50 MG TABLET PO SCH (21:45)
[2021-09-30] MEDS: GABAPENTIN 300 MG CAPSULE PO SCH (21:45)
[2021-09-30] MEDS: BUMETANIDE 1 MG/4 ML VIAL IV SCH ×2 (21:46→21:47)
[2021-09-30] MEDS: 0.9 % SODIUM CHLORIDE 10 ML SYRINGE IV SCH (21:49)
[2021-10-01] MEDS: 0.9 % SODIUM CHLORIDE 10 ML SYRINGE IV SCH ×3 (05:59→23:26)
[2021-10-01] MEDS: METOLAZONE 2.5 MG TABLET PO SCH ×2 (07:33→15:06)
[2021-10-01] MEDS: BUMETANIDE 1 MG/4 ML VIAL IV SCH ×2 (08:24→22:10)
[2021-10-01] MEDS: DOCUSATE SODIUM 100 MG CAPSULE PO SCH ×2 (08:24→22:14)
[2021-10-01] MEDS: ASPIRIN 81 MG TAB.CHEW PO SCH (08:24)
[2021-10-01] MEDS: MAGNESIUM OXIDE 400 MG TABLET PO SCH (08:24)
[2021-10-01] MEDS: GABAPENTIN 300 MG CAPSULE PO SCH ×2 (08:24→22:17)
[2021-10-01] MEDS: METOPROLOL TARTRATE 50 MG TABLET PO SCH ×2 (08:24→22:16)
[2021-10-01] MEDS: ALLOPURINOL 300 MG TABLET PO SCH (08:25)
[2021-10-01 08:45] LABS: Blood Urea Nitrogen 27 mg/dL (8-23); Calcium 9.2 mg/dL (8.6-10.4); Carbon Dioxide 22 mmol/L (22-30); Chloride 95 mmol/L (96-108); Glomerular Filtration Rate 42; Glucose 127 mg/dL (70-105)
--- NOTE | 2021-10-01 15:00 | Internal Med Progress Note ---
SUBJECTIVE Subjective Patient information: Note initiated : 10/01/21 at 2:54 pm Service Date, if different from initiated Date: [] Patient: Torsten Marroquin 76 y/o M admitted on 09/30/21 for shortness of breath, abd pain. Chief Complaint: [RUQ pain and mild fever] Principal diagnosis: Acute on chronic CHF Interval history: pt with some RUQ pain but not much change with eating. no nausea or vomiting. Gall bladder and appendix still intact seen by wound care. no ulcerations on legs. Pertinent ROS: mild fever 99 yest Additional PMFSH (Level 3 Only): drinks 9 oz vodka daily 100 calories plus 50 calories cranberry juice each drink obesity diabetes Constitutional Vitals: Vital Signs Temp Pulse Resp BP Pulse Ox 98.3 F 73 20 143/71 98 10/01/21 04:00 10/01/21 08:14 10/01/21 08:14 10/01/21 04:00 10/01/21 08:14 Period Temp Pulse Resp BP Sys/Martel Pulse Ox Last 24 Hr 98.0 F-99.1 F 71-82 16-29 140-159/68-85 93-100 Intake and Output 10/01/21 10/01/21 10/01/21 05:59 13:59 21:59 Output Total 2525 1100 Balance -2525 -1100 Weight 132.137 kg Patient Weight 10/02/21 05:59 Weight 132.137 kg Intake & Output: Intake & Output 10/01/21 10/01/21 10/01/21 05:59 13:59 21:59 Output Total 2525 1100 Balance -2525 -1100 Weight 132.137 kg Output: Void Amount 2525 1100 Other: Meal Breakfast Percent of Meal Consumed 100% Urine Appearance Clear Clear Urine Color Pale Bright Yellow Stool Size Small Stool Color Brown Stool Consistency Formed # Voids 1 # Bowel Movements 1 Additional findings Additional findings: Morbidly obese WM in NAD CV RRR Lung diminished right base cracles left base Calves 3+ edema bilat Skin warm and dry hematoma corn on left halux mentation alert and oriented x 3 abd mild RUQ tenderness no mass OBJ DATA Labs CBC & Chem 7: 09/30/21 10:24 10/01/21 05:35 Labs: Abnormal Lab Results 11/03/21 11/02/21 11/02/21 05:35 18:41 18:41 WBC RBC MCV MCH Neut % (Auto) Lymph % (Auto) Lymph # (Auto) Absolute Neutrophils POC Sodium Sodium 132 L 128 L Potassium 5.2 H POC Chloride Chloride 95 L 90 L Carbon Dioxide 20 L Anion Gap 18.0 H POC BUN BUN 27 H 25 H Creatinine 1.6 H 1.6 H POC Creatinine Glucose 127 H 159 H POC Glucose Hemoglobin A1c POC WB Ioniz Calcium Total Bilirubin Alkaline Phosphatase NT-Pro-B Natriuret Pep Cortisol PM Sample 18.5 H 09/30/21 09/30/21 09/30/21 10:24 10:24 10:24 WBC 15.9 H RBC 4.06 L MCV 101.2 H MCH 34.5 H Neut % (Auto) 87.4 H Lymph % (Auto) 6.1 L Lymph # (Auto) 0.96 L Absolute Neutrophils 13.87 H POC Sodium 127 L Sodium 128 L Potassium 5.4 H POC Chloride 95 L Chloride 89 L Carbon Dioxide 17 L Anion Gap 22.0 H POC BUN 24 H BUN Creatinine 1.6 H POC Creatinine 1.7 H Glucose 170 H POC Glucose 170 H Hemoglobin A1c 6.2 H POC WB Ioniz Calcium 1.13 L Total Bilirubin 1.4 H Alkaline Phosphatase 193 H NT-Pro-B Natriuret Pep 7090.0 H Cortisol PM Sample Meds: Medications Allopurinol (Allopurinol 300 Mg Tablet) 300 mg PO DAILY [facility] Last Admin: 10/01/21 08:25 Dose: 300 mg Documented by: Aspirin (Aspirin 81 Mg Tab.Chew) 81 mg PO DAILY [facility] Last Admin: 10/01/21 08:24 Dose: 81 mg Documented by: Bumetanide (Bumetanide 0.25 Mg/Ml Vial) 1 mg IV BID [facility] Last Admin: 10/01/21 08:24 Dose: 1 mg Documented by: Docusate Sodium (Docusate Sodium 100 Mg Capsule) 100 mg PO BID [facility] Last Admin: 10/01/21 08:24 Dose: Not Given Documented by: Gabapentin (Gabapentin 300 Mg Capsule) [facility] Last Admin: 10/01/21 08:24 Dose: 300 mg Documented by: Gabapentin (Gabapentin 300 Mg Capsule) 600 mg PO HS [facility] Last Admin: 09/30/21 21:45 Dose: 600 mg Documented by: Magnesium Oxide (Magnesium Oxide 400 Mg Tablet) 400 mg PO DAILY [facility] Last Admin: 10/01/21 08:24 Dose: 400 mg Documented by: Metolazone (Metolazone 2.5 Mg Tablet) 5 mg PO BID@0730,1600 [facility] Last Admin: 10/01/21 07:33 Dose: 5 mg Documented by: Metoprolol Tartrate (Metoprolol Tartrate 50 Mg Tablet) 50 mg PO BID [facility] Last Admin: 10/01/21 08:24 Dose: 50 mg Documented by: Ondansetron HCl (Ondansetron 4 Mg/2 Ml Vial) 4 mg IV Q6HP PRN PRN Reason: Nausea And Vomiting Senna (Sennosides 1 Tablet) 2 tab PO HS [facility] Last Admin: 09/30/21 21:23 Dose: Not Given Documented by: Sodium Chloride (0.9 % Sodium Chloride 10 Ml Syringe) 10 ml IV Q8 [facility] Last Admin: 10/01/21 05:59 Dose: 10 ml Documented by: A/P Assessment and plan (1) Congestive heart failure: Status: Acute Comment: pt with mild decreased EF on EMD bedside echo. tolerated BIPAP here tonight changed to iv bumex and oral metolazone and started low na diabetic diet 09/30 added 2000 cc fluid restriction 10/01 TTE done results pending (2) CKD stage G3b/A3, GFR 30-44 and albumin creatinine ratio >300 mg/g: Status: Acute Comment: daily BMP and telemetry with diuresis (3) Alcohol abuse: Status: Chronic Comment: monitor for withdrawal. pt says has not happened in the past when quit despite drinking more (4) Pre-ulcerative corn or callous: Status: Acute Comment: says sees cathode builder regularly (5) RUQ abdominal tenderness: Status: Acute Comment: obtain RUQ ultrasound due to mild fever and gram positive cocci in blood repeat blood culture x 2 g bladder usually gram neg. may be skin contaminant clean catch UA today cmp in morning Time Spent With Patient Time: Total time spent is greater than 50% in coordination of care (as documented) at patient's floor/unit and/or counseling patient: 35
[2021-10-01] MEDS ORDERED: DEXTROSE 31 GM ORAL.SUSP PO PRN (15:16)
[2021-10-01] MEDS ORDERED: DEXTROSE 50% 50 ML VIAL IV PRN (15:16)
--- NOTE | 2021-10-01 15:16 | Internal Med History&Physical ---
HPI History of Present Illness Patient information: Note initiated : 10/01/21 at 3:08 pm Service Date, if different from initiated Date: [] Patient: Torsten Marroquin 76 y/o M admitted on 09/30/21 for shortness of breath, abd pain. Chief Complaint: [] History of present illness: Mr. Marroquin is a 76 year old M History of present illness: Mr. Marroquin is a 76 year old M with CKD 3 and diabetes says has gained 7lbs fluid in last week. Was admitted for CHF 07/2021. not very responsive to diuretics. Wt now 298 and he is 5'8". Pt with diabetes states BS runs in the 150 range. has sleep apnea but uses cpap 19 and sleeps through the night. denies chest pain or orthopnea. admits to severe leg swelling. Pt had covid vaccine 3-4 months ago. denies cough or fever drinks 5-7 shots vodka daily at the bar. doesnt drink at home alone. goes there to socialize because due to neuropathy cant do anything anymore. Was a [employer] in the [employer]. 19 years ago 10/01 Interval history: pt with some RUQ pain but not much change with eating. no nausea or vomiting. Gall bladder and appendix still intact seen by wound care. no ulcerations on legs. 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) Back pain (Chronic) Obese (Chronic) Diabetes (Chronic) Hypertension (Chronic) Alcohol abuse (Chronic) Tremor (Chronic) Neuropathy (Chronic) Gallbladder problem (Chronic) History of ETOH poisoning (Chronic) Obstructive sleep apnea (Chronic) Osteoarthritis (Chronic) Prostate cancer (Chronic) Mild cognitive disorder (Chronic) Alcohol dependence (Chronic) Morbid obesity (Chronic) Hyperlipidemia (Chronic) GERD (gastroesophageal reflux disease) (Chronic) History of colonoscopy (Acute ~2012) Hyperuricemia (Acute) DM type 2 (diabetes mellitus, type 2) (Acute) CKD stage G3b/A3, GFR 30-44 and albumin creatinine ratio >300 mg/g (Acute) Gout due to renal impairment, left hip (Acute) Hyponatremia (Acute) Skin tear (Acute) Edema leg (Acute) Pneumonia (Acute) Elevated troponin (Acute) Medical History Alcohol abuse Alcohol dependence Back pain Diabetes Gallbladder problem GERD (gastroesophageal reflux disease) History of ETOH poisoning Hyperlipidemia Hypertension Mild cognitive disorder Morbid obesity Neuropathy Obese Obstructive sleep apnea Osteoarthritis Prostate cancer Tremor Surgical History History of colonoscopy (~2012) Family History Other No pertinent family history Social History (Updated 09/30/21 @ 19:44 by Alex Herzog MD) marital status: occupational status: disabled pets and animals: No leisure activities: other other: bar smoking status: Former smoker smoking status stop date: 11/29/69 alcohol intake frequency: 2+ drinks per day (Patient consumes about 6 mixed drinks every day) counseling provided: provider counseling substance use type: does not use additional history: wants full code son Emeka Marroquin is next of kin sister Sangeeta Payne also ok for medical discussion and opinion MEDS/ALLERGIES Home Medications and Allergies Home Medications Medication Instructions Recorded Confirmed Type allopurinol [Zyloprim] 300 mg PO DAILY 05/02/18 10/01/21 History folic acid 1 mg PO DAILY 05/02/18 10/01/21 History pantoprazole 40 mg PO QAMAC 05/02/18 10/01/21 History Vitamin B12 1,000 mcg PO DAILY 02/17/19 10/01/21 History aspirin 81 mg PO DAILY 02/17/19 10/01/21 History calcium carbonate 1,000 mg PO DAILY 02/17/19 10/01/21 History magnesium oxide 500 mg PO DAILY 02/17/19 10/01/21 History thiamine mononitrate (vit B1) 100 mg PO DAILY #30 tab 02/19/19 10/01/21 Rx alogliptin 12.5 mg tablet 12.5 mg PO QDAY 05/30/20 10/01/21 History atorvastatin 20 mg tablet 40 mg PO HS tab 05/30/20 10/01/21 History propranolol 80 mg capsule,24 80 mg PO BID #180 cap 07/01/20 10/01/21 Rx hr,extended release amlodipine 5 mg tablet 5 mg PO QDAY #90 tab 12/31/20 10/01/21 Rx gabapentin 300 mg capsule See Rx Instructions .ROUTE .COMPLEX 07/07/21 10/01/21 History eplerenone 25 mg tablet 25 mg PO QDAY #30 tab 08/19/21 10/01/21 Rx blood sugar diagnostic [Accu-Chek 10/01/21 10/01/21 History Guide test strips] cholecalciferol (vitamin D3) 125 mcg PO 3XW 10/01/21 10/01/21 History [Vitamin D3] furosemide 40 mg PO DAILY 10/01/21 10/01/21 History lancets [Accu-Chek Softclix 10/01/21 10/01/21 History Lancets] lisinopril 10 mg PO DAILY 10/01/21 10/01/21 History multivitamin [Daily Multivitamin] 1 tab PO QAM 10/01/21 10/01/21 History Allergies Allergy/AdvReac Type Severity Reaction Status Date / Time No Known Drug Allergies Allergy Verified 09/30/21 17:23 EXAM Constitutional Vitals: Temp Pulse Resp BP Pulse Ox 98.3 F 73 20 143/71 98 10/01/21 04:00 10/01/21 08:14 10/01/21 08:14 10/01/21 04:00 10/01/21 08:14 Exam: General: Alert, Awake, No acute Distress Eyes/N/T: EOMI, Head/Neck: neck supple, CV: RRR, No murmurs, Pulm: diminished right base, no wheezing Abd: soft, mild RUQ tenderness, +BS x4 Ext: no clubbing/cyanosis, b/l LE 3+ edema Neuro: Alert, no focal deficits, moves all extremities, Skin: warm/dry DATA Data Completed and Pending Labs: Labs from last 24 hours 10/01/21 10/01/21 10/01/21 14:08 14:07 05:36 Sodium Potassium Chloride Carbon Dioxide Anion Gap BUN Creatinine GFR Calculation Glucose Hemoglobin A1c Estim Average Glucose Calcium Magnesium 1.8 C-Reactive Protein Pending Procalcitonin Pending TSH Free T4 Cortisol PM Sample 10/01/21 09/30/21 09/30/21 05:35 18:41 18:41 Sodium 132 L 128 L Potassium 4.2 5.2 H Chloride 95 L 90 L Carbon Dioxide 22 20 L Anion Gap 15.0 18.0 H BUN 27 H 25 H Creatinine 1.6 H 1.6 H GFR Calculation 42 42 Glucose 127 H 159 H Hemoglobin A1c Estim Average Glucose Calcium 9.2 9.5 Magnesium C-Reactive Protein Procalcitonin TSH Free T4 Cortisol PM Sample 18.5 H 09/30/21 09/30/21 18:41 10:24 Sodium Potassium Chloride Carbon Dioxide Anion Gap BUN Creatinine GFR Calculation Glucose Hemoglobin A1c 6.2 H Estim Average Glucose 131 Calcium Magnesium C-Reactive Protein Procalcitonin TSH 2.47 Free T4 1.12 Cortisol PM Sample Preliminary micro results at discharge 09/30/21 11:12 Blood Culture - Preliminary Blood 09/30/21 11:12 Blood Culture - Preliminary Blood Gram positive cocci A/P Narrative A/P Narrative: A: *Acute on chronic diastolic CHF: *CKD IIIb: *Alcohol abuse: *RUQ abdominal tenderness: *ROMA on cpap: *DM w/neuropathy: on ASA *HTN/HLD: on norvasc/ACEI/BB, eplerenone/lasix *GERD: *Morbid obesity: *Generalized weakness/debility: *?bacteremia: ?contaminant P: -changed to iv bumex & oral metolazone -started low na diabetic diet 09/30, added 2000 cc fluid restriction 10/01 -monitor for withdrawal. pt says has not happened in the past when quit despite drinking more -obtain RUQ ultrasound -pending repeat BC -clean catch UA today -CIWA, vitamins -cont BB/ACEI -SSI -pt/ot -ppx: heparin/ home ppi Time Spent With Patient Time: Total time spent is greater than 50% in coordination of care (as documented) at patient's floor/unit and/or counseling patient:
[2021-10-01] MEDS ORDERED: cloNIDine HCL 0.1 MG TABLET PO PRN (15:23)
[2021-10-01] MEDS ORDERED: LORazepam 2 MG/ML VIAL IV PRN (15:23)
--- NOTE | 2021-10-01 15:32 | Internal Med Progress Note ---
SUBJECTIVE Subjective Patient information: Note initiated : 10/01/21 at 3:31 pm Service Date, if different from initiated Date: [] Patient: Torsten Marroquin 76 y/o M admitted on 09/30/21 for shortness of breath, abd pain. Chief Complaint: [] Principal diagnosis: Acute on chronic CHF Interval history: History of present illness: Mr. Marroquin is a 76 year old M History of present illness: Mr. Marroquin is a 76 year old M with CKD 3 and diabetes says has gained 7lbs fluid in last week. Was admitted for CHF 07/2021. not very responsive to diuretics. Wt now 298 and he is 5'8". Pt with diabetes states BS runs in the 150 range. has sleep apnea but uses cpap 19 and sleeps through the night. denies chest pain or orthopnea. admits to severe leg swelling. Pt had covid vaccine 3-4 months ago. denies cough or fever drinks 5-7 shots vodka daily at the bar. doesnt drink at home alone. goes there to socialize because due to neuropathy cant do anything anymore. 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 no nausea or vomiting. Gall bladder and appendix still intact seen by wound care. no ulcerations on legs. Pertinent ROS: mild fever 99 yest Additional PMFSH (Level 3 Only): drinks 9 oz vodka daily 100 calories plus 50 calories cranberry juice each drink 10/02 Constitutional Vitals: Vital Signs Temp Pulse Resp BP Pulse Ox 98.3 F 73 20 143/71 98 10/01/21 04:00 10/01/21 08:14 10/01/21 08:14 10/01/21 04:00 10/01/21 08:14 Period Temp Pulse Resp BP Sys/Martel Pulse Ox Last 24 Hr 98.0 F-99.1 F 71-82 16-29 140-156/68-85 93-100 Intake and Output 10/01/21 10/01/21 10/01/21 05:59 13:59 21:59 Output Total 2525 1100 Balance -2525 -1100 Weight 132.137 kg Patient Weight 10/02/21 05:59 Weight 132.137 kg Intake & Output: Intake & Output 10/01/21 10/01/21 10/01/21 05:59 13:59 21:59 Output Total 0240 1099 Balance -2524 -1099 Weight 132.137 kg Output: Void Amount 0403 1099 Other: Meal Breakfast Percent of Meal Consumed 100% Urine Appearance Clear Clear Urine Color Pale Bright Yellow Stool Size Small Stool Color Brown Stool Consistency Formed # Voids 1 # Bowel Movements 1 Exam: General: Alert, Awake, No acute Distress Eyes/N/T: EOMI, Head/Neck: neck supple, CV: RRR, No murmurs, Pulm: diminished right base, no wheezing Abd: soft, mild RUQ tenderness, +BS x4 Ext: no clubbing/cyanosis, b/l LE 3+ edema Neuro: Alert, no focal deficits, moves all extremities, Skin: warm/dry OBJ DATA Labs CBC & Chem 7: 09/30/21 10:24 10/01/21 05:35 Labs: Abnormal Lab Results 10/01/21 09/30/21 09/30/21 05:35 18:41 18:41 WBC RBC MCV MCH Neut % (Auto) Lymph % (Auto) Lymph # (Auto) Absolute Neutrophils POC Sodium Sodium 132 L 128 L Potassium 5.2 H POC Chloride Chloride 95 L 90 L Carbon Dioxide 20 L Anion Gap 18.0 H POC BUN BUN 27 H 25 H Creatinine 1.6 H 1.6 H POC Creatinine Glucose 127 H 159 H POC Glucose Hemoglobin A1c POC WB Ioniz Calcium Total Bilirubin Alkaline Phosphatase NT-Pro-B Natriuret Pep Cortisol PM Sample 18.5 H 09/30/21 09/30/21 09/30/21 10:24 10:24 10:24 WBC 15.9 H RBC 4.06 L MCV 101.2 H MCH 34.5 H Neut % (Auto) 87.4 H Lymph % (Auto) 6.1 L Lymph # (Auto) 0.96 L Absolute Neutrophils 13.87 H POC Sodium 127 L Sodium 128 L Potassium 5.4 H POC Chloride 95 L Chloride 89 L Carbon Dioxide 17 L Anion Gap 22.0 H POC BUN 24 H BUN Creatinine 1.6 H POC Creatinine 1.7 H Glucose 170 H POC Glucose 170 H Hemoglobin A1c 6.2 H POC WB Ioniz Calcium 1.13 L Total Bilirubin 1.4 H Alkaline Phosphatase 193 H NT-Pro-B Natriuret Pep 7090.0 H Cortisol PM Sample Meds: Medications Allopurinol (Allopurinol 300 Mg Tablet) 300 mg PO DAILY [facility] Last Admin: 10/01/21 08:25 Dose: 300 mg Documented by: Aspirin (Aspirin 81 Mg Tab.Chew) 81 mg PO DAILY [facility] Last Admin: 10/01/21 08:24 Dose: 81 mg Documented by: Bumetanide (Bumetanide 0.25 Mg/Ml Vial) 1 mg IV BID [facility] Last Admin: 10/01/21 08:24 Dose: 1 mg Documented by: Clonidine HCl (Clonidine Hcl 0.1 Mg Tablet) 0.1 mg PO Q4HP PRN PRN Reason: ALC Dextrose (Dextrose 50% 50 Ml Vial) 0 ml IV UD PRN PRN Reason: Hypoglycemia Diagnostic Test (Pha) (Accu-Chek 1 Each Strip) 1 each [facility] Docusate Sodium (Docusate Sodium 100 Mg Capsule) 100 mg PO BID [facility] Last Admin: 10/01/21 08:24 Dose: Not Given Documented by: Folic Acid (Folic Acid 1 Mg Tablet) 1 mg PO DAILY [facility] Gabapentin (Gabapentin 300 Mg Capsule) 300 mg PO QAM [facility] Last Admin: 10/01/21 08:24 Dose: 300 mg Documented by: Gabapentin (Gabapentin 300 Mg Capsule) 600 mg PO HS [facility] Last Admin: 09/30/21 21:45 Dose: 600 mg Documented by: Glucose (Dextrose 31 Gm Oral.Susp) 15 gm PO PRN PRN PRN Reason: Hypoglycemia Heparin Sodium (Porcine) (Heparin 5,000 Unit/Ml Vial) 5,000 unit SQ Q12 [facility] Insulin Human Lispro (Insulin Lispro 1 Unit/0.01 Ml Unit) 0 unit SQ [facility]; Protocol Iron Carb/Multivit/Sultan/Folic Acid (Multivit,Ther Iron,Ca,Fa & Min 1 Tablet) 1 tab PO DAILY [facility] Lisinopril (Lisinopril 10 Mg Tablet) 10 mg PO DAILY [facility] Lorazepam (Lorazepam 2 Mg/Ml Vial) 0 mg IV Q4HP PRN; Protocol PRN Reason: Alcohol Withdrawal Magnesium Oxide (Magnesium Oxide 400 Mg Tablet) 400 mg PO DAILY [facility] Last Admin: 10/01/21 08:24 Dose: 400 mg Documented by: Metolazone (Metolazone 2.5 Mg Tablet) 5 mg PO BID@0730,1600 [facility] Last Admin: 10/01/21 15:06 Dose: 5 mg Documented by: Metoprolol Tartrate (Metoprolol Tartrate 50 Mg Tablet) 50 mg PO BID [facility] Last Admin: 10/01/21 08:24 Dose: 50 mg Documented by: Ondansetron HCl (Ondansetron 4 Mg/2 Ml Vial) 4 mg IV Q6HP PRN PRN Reason: Nausea And Vomiting Senna (Sennosides 1 Tablet) 2 tab PO HS [facility] Last Admin: 09/30/21 21:23 Dose: Not Given Documented by: Sodium Chloride (0.9 % Sodium Chloride 10 Ml Syringe) 10 ml IV Q8 [facility] Last Admin: 10/01/21 15:06 Dose: 10 ml Documented by: Thiamine HCl (Thiamine 100 Mg Tablet) 100 mg PO DAILY [facility] A/P Narrative A/P Narrative: A: *Acute on chronic diastolic CHF: *?PNA: *Acute Hypoxic Resp Failure: 2/ above -on 3L NC *CKD IIIb: *Alcohol abuse: *RUQ abdominal tenderness: *ROMA on cpap: *DM w/neuropathy: on ASA *HTN/HLD: on norvasc/ACEI/BB, eplerenone/lasix *GERD: *Morbid obesity: *Generalized weakness/debility: *?bacteremia: ?contaminant P: -changed to iv bumex & oral metolazone -started low na diabetic diet 09/30, added 2000 cc fluid restriction 10/01 -monitor for withdrawal. pt says has not happened in the past when quit despite drinking more -obtain RUQ ultrasound -Abx pending SC -pending repeat , [facility] until identity return -f/u CXR -clean catch UA today -CIWA, vitamins -cont BB/ACEI -SSI -pt/ot -ppx: heparin/ home ppi Time Spent With Patient Time: Total time spent is greater than 50% in coordination of care (as documented) at patient's floor/unit and/or counseling patient:
[2021-10-01] MEDS: FOLIC ACID 1 MG TABLET PO SCH (15:42)
[2021-10-01] MEDS: THIAMINE 100 MG TABLET PO SCH (15:42)
[2021-10-01] MEDS ORDERED: VANCOMYCIN PER PHARMACY IV SCH (15:51)
[2021-10-01] MEDS: INSULIN LISPRO 1 UNIT/0.01 ML UNIT SQ SCH ×2 (16:01→22:15)
[2021-10-01 16:08] LABS: Albumin 3.6 gm/dL (3.2-5.2); Bilirubin,Direct 0.3 mg/dL (<0.3); Bilirubin,Total 0.8 mg/dL (0.1-1.0); Globulin 2.8 gm/dL (2.2-3.7)
[2021-10-01] MEDS: cefTRIAXone 2 GM in DEXTROSE 5% IN WATER 50 ML IV SCH (16:16)
[2021-10-01] MEDS: VANCOMYCIN 1,500 MG in 0.9 % SODIUM CHLORIDE 500 ML IV SCH (16:28)
[2021-10-01] MEDS: AZITHROMYCIN 500 MG in DEXTROSE 5% IN WATER 250 ML IV SCH (16:50)
[2021-10-01 16:58] LABS: Appearance,Urine CLEAR (Clear); Bilirubin,Urine Negative (Negative); Color,Urine STRAW; Culture Indicated,Urine No; Glucose,Urine (UA) Negative (Negative); Ketones,Urine Negative (Negative); Leukocyte Esterase,Urine Negative /uL (Negative); Nitrate,Urine Negative (Negative); Protein,Urine Negative (Negative); Specific Gravity,Urine 1.004 (1.000-1.035); Urine Blood Negative (Negative); Urobilinogen,Urine Negative
--- NOTE | 2021-10-01 18:18 | Ultrasound Report ---
INDICATION: right upper quadrant tenderness TECHNIQUE: Grayscale and color flow Doppler spectral imaging COMPARISON: None. FINDINGS: Pancreas:Pancreas appears somewhat echogenic. No discrete mass. Gallbladder:There may be minimal biliary sludge. No discrete stones. Gallbladder wall is measured is thickened but I believe this is due to pericholecystic fat rather than true wall thickening. There is no pericholecystic fluid. Patient is not tender when scanned over the gallbladder. Bile Ducts:No intra or extrahepatic bile duct dilatation. Common bile duct measures4 mm Liver:Liver is heterogeneous and enlarged. No focal mass. Liver contour is smooth. Liver evxrotly26.2 cm Spleen:No splenomegaly. No focal intrasplenic abnormality. Normal hepatopedal portal venous flow Kidneys:Right kidney measures 11.7 x 7.3 x 6.6 cm. Left kidney measures 12.7 x 6.0 x 4.8 cm. No solid or cystic mass. There is no hydronephrosis Vascular:No abdominal aortic aneurysm IMPRESSION: 1. Echogenic pancreas without focal abnormality 2. Possible mild biliary sludge. No discrete stones 3. Heterogeneous and enlarged liver. No focal abnormality. Interpreted and Authenticated by: Saravanan Barr 10/01/21
[2021-10-01] MEDS: SENNOSIDES 1 TABLET PO SCH (21:00)
[2021-10-01] MEDS: HEPARIN 5,000 UNIT/ML VIAL SQ SCH (22:12)
[2021-10-02] MEDS: VANCOMYCIN 1,500 MG in 0.9 % SODIUM CHLORIDE 500 ML IV SCH ×2 (01:07→10:53)
[2021-10-02] MEDS: 0.9 % SODIUM CHLORIDE 10 ML SYRINGE IV SCH ×3 (05:06→21:22)
--- NOTE | 2021-10-02 06:30 | XRay Report ---
INDICATION: follow up chf TECHNIQUE: PA and lateral upright chest x-ray COMPARISON: [facility] chest x-rays dated 09/30/2021, 08/27/2021, 02/17/2019 FINDINGS: Lungs: Lungs are improved. Decreased bibasilar infiltrates consistent with resolved pulmonary edema. No new focal pulmonary parenchymal infiltrate or mass. Heart, vascular: Persisting cardiomegaly. Vascularity is within normal limits Mediastinum, shilpa: No mediastinal widening. No hilar mass Pleura:There is mild pleural calcification and thickening in the left lateral hemithorax. There is blunting of both costophrenic angles consistent small effusions. Thoracic spine, ribs: No thoracic compression fracture. Ribs are negative. No fracture. No lytic lesion IMPRESSION: 1. Improved chest x-ray. Resolution of infiltrates consistent with pulmonary edema 2. Small bilateral pleural effusions 3. Chronic left lateral pleural thickening and calcification Interpreted and Authenticated by: Saravanan Barr 10/02/21
[2021-10-02 06:43] LABS: Basophils # (Auto) 0.08 K/mcL (0.00-0.30); Basophils % (Auto) 0.9 % (0.0-2.0); Eosinophils % (Auto) 1.1 % (0.0-7.0); Hematocrit 34.9 % (40.1-51.0); Hemoglobin 11.6 g/dL (13.7-17.5); Lymphocytes # (Auto) 1.39 K/mcL (1.50-4.80); Lymphocytes % (Auto) 14.9 % (15.5-49.0); Mean Cell Volume 102.6 fL (80.0-100.0); Mean Corpuscular HGB Conc 33.2 g/dL (31.0-36.0); Mean Platelet Volume 10.2 fL (7.4-10.4); Monocytes # (Auto) 0.81 K/mcL (0.10-0.90); Monocytes % (Auto) 8.7 % (1.0-12.0); Neutrophils % (Auto) 74.4 % (38.0-78.0); Platelet Count 185 K/mcL (140-440); Red Cell Distribution Width 13.7 % (11.5-14.5); WBC 9.4 K/mcL (4.5-11.0)
[2021-10-02 07:05] LABS: Blood Urea Nitrogen 29 mg/dL (8-23); Calcium 9.1 mg/dL (8.6-10.4); Carbon Dioxide 23 mmol/L (22-30); Chloride 96 mmol/L (96-108); Glomerular Filtration Rate 34; Glucose 136 mg/dL (70-105)
[2021-10-02 07:06] LABS: ALT/SGPT 19 U/L (<40); AST/SGOT 26 U/L (<40); Albumin 3.2 gm/dL (3.2-5.2); Alkaline Phosphatase 138 U/L (39-117); Bilirubin,Total 0.5 mg/dL (0.1-1.0); Globulin 3.2 gm/dL (2.2-3.7)
--- NOTE | 2021-10-02 07:24 | Internal Med Progress Note ---
SUBJECTIVE Subjective Patient information: Note initiated : 10/02/21 at 7:13 am Service Date, if different from initiated Date: [] Patient: Torsten Marroquin 76 y/o M admitted on 09/30/21 for shortness of breath, abd pain. Chief Complaint: [] Principal diagnosis: Acute on chronic CHF Interval history: History of present illness: Mr. Marroquin is a 76 year old M History of present illness: Mr. Marroquin is a 76 year old M with CKD 3 and diabetes says has gained 7lbs fluid in last week. Was admitted for CHF 07/2021. not very responsive to diuretics. Wt now 298 and he is 5'8". Pt with diabetes states BS runs in the 150 range. has sleep apnea but uses cpap 19 and sleeps through the night. denies chest pain or orthopnea. admits to severe leg swelling. Pt had covid vaccine 3-4 months ago. denies cough or fever drinks 5-7 shots vodka daily at the bar. doesnt drink at home alone. goes there to socialize because due to neuropathy cant do anything anymore. 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 no nausea or vomiting. Gall bladder and appendix still intact seen by wound care. no ulcerations on legs. Pertinent ROS: mild fever 99 yest Additional PMFSH (Level 3 Only): drinks 9 oz vodka daily 100 calories plus 50 calories cranberry juice each drink 10/02 Feeling better. Breathing better. occasional cough. Feels less swollen his feet. Needs CPAP while sleeping but on room air while awake. Good urine output. Leukocytosis resolved. CRP and mildly elevated pro-Klaus is improving. Abdominal ultrasound unremarkable for cholecystitis. UA unremarkable. Chest x- ray clearing more in line with CHF and pneumonia. Review of Systems: denies headache/fever/chills/nausea/vomiting/chest or abdominal pain/diarrhea. Otherwise see above. Constitutional Vitals: Vital Signs Temp Pulse Resp BP Pulse Ox 97.7 F 73 22 121/56 93 10/02/21 06:44 10/02/21 06:44 10/02/21 06:44 10/02/21 06:44 10/02/21 06:44 Period Temp Pulse Resp BP Sys/Martel Pulse Ox Last 24 Hr 96.7 F-99.0 F 66-90 12-26 121-144/56-74 88-98 Intake and Output 10/01/21 10/02/21 10/02/21 21:59 05:59 13:59 Intake Total 1000 140 Output Total 1150 5 Balance -150 -1935 Weight 132.109 kg Intake & Output: Intake & Output 10/01/21 10/02/21 10/02/21 21:59 05:59 13:59 Intake Total 1000 140 Output Total 1150 5 Balance -150 -1935 Weight 132.109 kg Intake: IV 800 Zithromax 500 mg In Dextrose 5% 250 in Water 250 ml @ 250 mls/hr IV DAILY [facility] Rx#:[id number] Vancomycin 1,500 mg In Sodium 500 Chloride 0.9% 500 ml @ 333.3 mls/hr IV Q12H [facility] Rx#: [id number] Rocephin 2 gm In Dextrose 5% in 50 Water 50 ml @ 100 mls/hr IV DAILY [facility] Rx#:[id number] Oral 200 140 Output: Void Amount 1150 5 Other: Meal Dinner Percent of Meal Consumed 100% Feeding Ability Independent Urine Appearance Clear Clear Urine Color Pale Pale Exam: General: Alert, Awake, No acute Distress Eyes/N/T: EOMI, Head/Neck: neck supple, CV: RRR, No murmurs, Pulm: bibase rales, mild diminished, no wheezing Abd: soft, RUQ not particularly tender when palpating compared to rest of abdomen, +BS x4 Ext: no clubbing/cyanosis, b/l LE 2-3+ edema Neuro: Alert, no focal deficits, moves all extremities, Skin: warm/dry OBJ DATA Labs CBC & Chem 7: 10/02/21 05:12 10/02/21 05:12 Labs: Abnormal Lab Results 10/02/21 10/02/21 10/02/21 05:12 05:12 05:12 WBC RBC 3.40 L Hgb 11.6 L Hct 34.9 L MCV 102.6 H MCH 34.1 H Neut % (Auto) Lymph % (Auto) 14.9 L Lymph # (Auto) 1.39 L Absolute Neutrophils POC Sodium Sodium Potassium POC Chloride Chloride Carbon Dioxide Anion Gap POC BUN BUN 29 H Creatinine 1.9 H POC Creatinine Glucose 136 H POC Glucose Hemoglobin A1c POC WB Ioniz Calcium Total Bilirubin Direct Bilirubin Alkaline Phosphatase 138 H C-Reactive Protein 5.20 H NT-Pro-B Natriuret Pep Procalcitonin Cortisol PM Sample 10/01/21 10/01/21 10/01/21 15:03 14:08 14:07 WBC RBC Hgb Hct MCV MCH Neut % (Auto) Lymph % (Auto) Lymph # (Auto) Absolute Neutrophils POC Sodium Sodium Potassium POC Chloride Chloride Carbon Dioxide Anion Gap POC BUN BUN Creatinine POC Creatinine Glucose POC Glucose Hemoglobin A1c POC WB Ioniz Calcium Total Bilirubin Direct Bilirubin 0.3 H Alkaline Phosphatase 149 H C-Reactive Protein 7.10 H NT-Pro-B Natriuret Pep Procalcitonin 0.62 H Cortisol PM Sample 10/01/21 09/30/21 09/30/21 05:35 18:41 18:41 WBC RBC Hgb Hct MCV MCH Neut % (Auto) Lymph % (Auto) Lymph # (Auto) Absolute Neutrophils POC Sodium Sodium 132 L 128 L Potassium 5.2 H POC Chloride Chloride 95 L 90 L Carbon Dioxide 20 L Anion Gap 18.0 H POC BUN BUN 27 H 25 H Creatinine 1.6 H 1.6 H POC Creatinine Glucose 127 H 159 H POC Glucose Hemoglobin A1c POC WB Ioniz Calcium Total Bilirubin Direct Bilirubin Alkaline Phosphatase C-Reactive Protein NT-Pro-B Natriuret Pep Procalcitonin Cortisol PM Sample 18.5 H 09/30/21 09/30/21 09/30/21 10:24 10:24 10:24 WBC 15.9 H RBC 4.06 L Hgb Hct MCV 101.2 H MCH 34.5 H Neut % (Auto) 87.4 H Lymph % (Auto) 6.1 L Lymph # (Auto) 0.96 L Absolute Neutrophils 13.87 H POC Sodium 127 L Sodium 128 L Potassium 5.4 H POC Chloride 95 L Chloride 89 L Carbon Dioxide 17 L Anion Gap 22.0 H POC BUN 24 H BUN Creatinine 1.6 H POC Creatinine 1.7 H Glucose 170 H POC Glucose 170 H Hemoglobin A1c 6.2 H POC WB Ioniz Calcium 1.13 L Total Bilirubin 1.4 H Direct Bilirubin Alkaline Phosphatase 193 H C-Reactive Protein NT-Pro-B Natriuret Pep 7090.0 H Procalcitonin Cortisol PM Sample Meds: Medications Allopurinol (Allopurinol 300 Mg Tablet) 300 mg PO DAILY [facility] Last Admin: 10/01/21 08:25 Dose: 300 mg Documented by: Aspirin (Aspirin 81 Mg Tab.Chew) 81 mg PO DAILY [facility] Last Admin: 10/01/21 08:24 Dose: 81 mg Documented by: Bumetanide (Bumetanide 0.25 Mg/Ml Vial) 1 mg IV BID [facility] Last Admin: 10/01/21 22:10 Dose: 1 mg Documented by: Clonidine HCl (Clonidine Hcl 0.1 Mg Tablet) 0.1 mg PO Q4HP PRN PRN Reason: ALC Last Admin: 10/02/21 01:30 Dose: 0.1 mg Documented by: Dextrose (Dextrose 50% 50 Ml Vial) 0 ml IV UD PRN PRN Reason: Hypoglycemia Diagnostic Test (Pha) (Accu-Chek 1 Each Strip) 1 each FS ACHS [facility] Last Admin: 10/01/21 22:07 Dose: 1 each Documented by: Docusate Sodium (Docusate Sodium 100 Mg Capsule) 100 mg PO BID [facility] Last Admin: 10/01/21 22:14 Dose: Not Given Documented by: Folic Acid (Folic Acid 1 Mg Tablet) 1 mg PO DAILY [facility] Last Admin: 10/01/21 15:42 Dose: 1 mg Documented by: Gabapentin (Gabapentin 300 Mg Capsule) 300 mg PO QAM [facility] Last Admin: 10/01/21 08:24 Dose: 300 mg Documented by: Gabapentin (Gabapentin 300 Mg Capsule) 600 mg PO HS [facility] Last Admin: 10/01/21 22:17 Dose: 600 mg Documented by: Glucose (Dextrose 31 Gm Oral.Susp) 15 gm PO PRN PRN PRN Reason: Hypoglycemia Heparin Sodium (Porcine) (Heparin 5,000 Unit/Ml Vial) 5,000 unit SQ Q12 [facility] Last Admin: 10/01/21 22:12 Dose: 5,000 unit Documented by: Ceftriaxone Sodium 2 gm/ (Dextrose) 50 mls @ 100 mls/hr IV DAILY [facility]; Protocol Last Infusion: 10/01/21 16:46 Dose: Infused Documented by: Azithromycin 500 mg/ Dextrose 250 mls @ 250 mls/hr IV DAILY [facility]; Protocol Stop: 10/03/21 09:59 Last Infusion: 10/01/21 18:07 Dose: Infused Documented by: Vancomycin HCl 1,500 mg/ (Sodium Chloride) 500 mls @ 333.3 mls/hr IV Q12H [facility] Last Admin: 10/02/21 01:07 Dose: 333 mls/hr Documented by: Insulin Human Lispro (Insulin Lispro 1 Unit/0.01 Ml Unit) 0 unit SQ ACHS [facility]; Protocol Last Admin: 10/01/21 22:15 Dose: Not Given Documented by: Iron Carb/Multivit/[place]/Folic Acid (Multivit,Ther Iron,Ca,Fa & Min 1 Tablet) 1 tab PO DAILY [facility] Lisinopril (Lisinopril 10 Mg Tablet) 10 mg PO DAILY [facility] Lorazepam (Lorazepam 2 Mg/Ml Vial) 0 mg IV Q4HP PRN; Protocol PRN Reason: Alcohol Withdrawal Last Admin: 10/02/21 02:13 Dose: 1 mg Documented by: Magnesium Oxide (Magnesium Oxide 400 Mg Tablet) 400 mg PO DAILY [facility] Last Admin: 10/01/21 08:24 Dose: 400 mg Documented by: Metolazone (Metolazone 2.5 Mg Tablet) 5 mg PO BID@0730,1600 [facility] Last Admin: 10/01/21 15:06 Dose: 5 mg Documented by: Metoprolol Tartrate (Metoprolol Tartrate 50 Mg Tablet) 50 mg PO BID [facility] Last Admin: 10/01/21 22:16 Dose: 50 mg Documented by: Ondansetron HCl (Ondansetron 4 Mg/2 Ml Vial) 4 mg IV Q6HP PRN PRN Reason: Nausea And Vomiting Senna (Sennosides 1 Tablet) 2 tab PO HS [facility] Last Admin: 10/01/21 21:00 Dose: Not Given Documented by: Sodium Chloride (0.9 % Sodium Chloride 10 Ml Syringe) 10 ml IV Q8 [facility] Last Admin: 10/02/21 05:06 Dose: 10 ml Documented by: Thiamine HCl (Thiamine 100 Mg Tablet) 100 mg PO DAILY [facility] Last Admin: 10/01/21 15:42 Dose: 100 mg Documented by: Vancomycin HCl (Vancomycin Per Pharmacy) 1 order IV UD [facility]; Protocol A/P Narrative A/P Narrative: A: *Acute on chronic diastolic CHF: -good UOP -f/u CXR unremarkable *?infection: leukocytosis, elevated crp, mildley elevated PCT -CXR more consistent with chf, UA/ruq ultrasound unremarkable -leukocytosis resolved, crp improved, pct -BC pending *CKD IIIb: *Alcohol abuse: *RUQ abdominal tenderness: not appreciated today -u/s with possible mild biliary sludge but no evidence of cholecystitis *Hyponatremia, mild: improved *ROMA on cpap: requires o2 while sleeping but on room air while awake *DM w/neuropathy: on ASA *HTN/HLD: on norvasc/ACEI/BB, eplerenone/lasix *GERD: *Morbid obesity: *Generalized weakness/debility: *?bacteremia: ?contaminant P: -diuresis today (iv bumex & po metolazone) -low na diet & fluid restriction -monitor for withdrawal -Abx pending SC/BC -pending repeat BC, vanco until identity return -CIWA, vitamins -cont BB/ACEI -SSI -pt/ot -ppx: heparin/ home ppi Time Spent With Patient Time: Total time spent is greater than 50% in coordination of care (as docu mented) at patient's floor/unit and/or counseling patient:
[2021-10-02] MEDS: ALLOPURINOL 300 MG TABLET PO SCH (08:08)
[2021-10-02] MEDS: METOLAZONE 2.5 MG TABLET PO SCH ×2 (08:08→15:37)
[2021-10-02] MEDS: ASPIRIN 81 MG TAB.CHEW PO SCH (08:09)
[2021-10-02] MEDS: LISINOPRIL 10 MG TABLET PO SCH (08:09)
[2021-10-02] MEDS: MULTIVIT,THER IRON,CA,FA & MIN 1 TABLET PO SCH (08:09)
[2021-10-02] MEDS: METOPROLOL TARTRATE 50 MG TABLET PO SCH ×2 (08:09→21:21)
[2021-10-02] MEDS: FOLIC ACID 1 MG TABLET PO SCH (08:09)
[2021-10-02] MEDS: THIAMINE 100 MG TABLET PO SCH (08:10)
[2021-10-02] MEDS: GABAPENTIN 300 MG CAPSULE PO SCH ×2 (08:10→21:21)
[2021-10-02] MEDS: HEPARIN 5,000 UNIT/ML VIAL SQ SCH ×2 (08:11→21:19)
[2021-10-02] MEDS: MAGNESIUM OXIDE 400 MG TABLET PO SCH (08:11)
[2021-10-02] MEDS: DOCUSATE SODIUM 100 MG CAPSULE PO SCH ×3 (08:11→21:21)
[2021-10-02] MEDS: INSULIN LISPRO 1 UNIT/0.01 ML UNIT SQ SCH ×4 (08:12→21:20)
[2021-10-02 08:19] LABS: Eosinophils % (Manual) 2 % (0-7); Lymphocytes % 16 % (15-49); Macrocytosis 1+ (None Seen); Monocytes % (Manual) 11 % (1-12); Myelocytes % 1 %; Platelet Estimate NORMAL (Normal); RBC Morphology NORMAL (Normal); Segmented Neutrophils % 70 % (38-78)
[2021-10-02] MEDS: BUMETANIDE 1 MG/4 ML VIAL IV SCH ×2 (09:03→21:19)
[2021-10-02] MEDS: cefTRIAXone 2 GM in DEXTROSE 5% IN WATER 50 ML IV SCH (09:07)
[2021-10-02] MEDS: AZITHROMYCIN 500 MG in DEXTROSE 5% IN WATER 250 ML IV SCH (09:12)
--- NOTE | 2021-10-02 10:06 | Discharge Summary ---
Discharge Provider Provider Patient information: Note initiated : 10/02/21 at 10:04 am Service Date, if different from initiated Date: [] Patient: Torsten Marroquin 76 y/o M admitted on 09/30/21 for shortness of breath, abd pain. Chief Complaint: [] Date of admission: 09/30/21 14:59 Discharge date: 10/03/21 Primary care physician: Jimena Jackson Consults: 09/30/21 Consult to Physician [CONS] Stat Comment: Consulting Provider: Alex Herzog Reason For Exam: Physician to Consult Discharge Meds Discharge Medications Home Medications folic acid 1 mg PO DAILY 05/02/18 [History Confirmed 10/01/21 Last Taken Unkno wn] pantoprazole 40 mg PO QAMAC 05/02/18 [History Confirmed 10/01/21 Last Taken Unknown] Vitamin B12 1,000 mcg PO DAILY 02/17/19 [History Confirmed 10/01/21 Last Taken Unknown] aspirin 81 mg PO DAILY 02/17/19 [History Confirmed 10/01/21 Last Taken Unknown] calcium carbonate 1,000 mg PO DAILY 02/17/19 [History Confirmed 10/01/21 Last Taken Unknown] magnesium oxide 500 mg PO DAILY 02/17/19 [History Confirmed 10/01/21 Last Taken Unknown] thiamine mononitrate (vit B1) 100 mg PO DAILY #30 tab 02/19/19 [Rx Confirmed 10/01/21 Last Taken Unknown] alogliptin 12.5 mg tablet 12.5 mg PO QDAY 05/30/20 [History Confirmed 10/01/21 Last Taken Unknown] atorvastatin 20 mg tablet 40 mg PO HS tab 05/30/20 [History Confirmed 10/01/21 Last Taken Unknown] gabapentin 300 mg capsule See Rx Instructions .ROUTE .COMPLEX 07/07/21 [History Confirmed 10/01/21 Last Taken Unknown] eplerenone 25 mg tablet 25 mg PO QDAY #30 tab 08/19/21 [Rx Confirmed 10/01/21 Last Taken Unknown] Accu-Chek Guide test strips 10/01/21 [History Confirmed 10/01/21 Last Taken Unknown] cholecalciferol (vitamin D3) [Vitamin D3] 125 mcg PO 3XW 10/01/21 [History Confirmed 10/01/21 Last Taken Unknown] furosemide 40 mg PO DAILY 10/01/21 [History Confirmed 10/01/21 Last Taken Unknown] lancets [Accu-Chek Softclix Lancets] 10/01/21 [History Confirmed 10/01/21 Last Taken Unknown] lisinopril 10 mg PO DAILY 10/01/21 [History Confirmed 10/01/21 Last Taken Unknown] multivitamin 1 tab PO QAM 10/01/21 [History Confirmed 10/01/21 Last Taken Unknown] allopurinol 100 mg PO QDAY #30 tab 10/03/21 [Rx Last Taken Unknown] cefpodoxime 200 mg PO BID #8 tab 10/03/21 [Rx Last Taken Unknown] propranolol 80 mg PO BID #1 cap 10/03/21 [Rx Last Taken Unknown] COURSE Hospital Course Hospital course: Principal diagnosis: Acute on chronic CHF Interval history: History of present illness: Mr. Marroquin is a 76 year old M History of present illness: Mr. Marroquin is a 76 year old M with CKD 3 and diabetes says has gained 7lbs fluid in last week. Was admitted for CHF 07/2021. not very responsive to diuretics. Wt now 298 and he is 5'8". Pt with diabetes states BS runs in the 150 range. has sleep apnea but uses cpap 19 and sleeps through the night. denies chest pain or orthopnea. admits to severe leg swelling. Pt had covid vaccine 3-4 months ago. denies cough or fever drinks 5-7 shots vodka daily at the bar. doesnt drink at home alone. goes there to socialize because due to neuropathy cant do anything anymore. 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 no nausea or vomiting. Gall bladder and appendix still intact seen by wound care. no ulcerations on legs. Pertinent ROS: mild fever 99 yest Additional PMFSH (Level 3 Only): drinks 9 oz vodka daily 100 calories plus 50 calories cranberry juice each drink 10/02 Feeling better. Breathing better. occasional cough. Feels less swollen his feet. Needs CPAP while sleeping but on room air while awake. Good urine output. Leukocytosis resolved. CRP and mildly elevated pro-Klaus is improving. Abdominal ultrasound unremarkable for cholecystitis. UA unremarkable. Chest x- ray clearing more in line with CHF and pneumonia. 11/5 11/5 Feeling better. No shortness of breath at rest. No overnight event or new c omplaints. Renal function stable. CRP improved. pct improving. BC remain negative. A: *Acute on chronic diastolic CHF: -good UOP -f/u CXR unremarkable *?infection(?PNA): leukocytosis, elevated crp, mildley elevated PCT - all improved/resolved -CXR more consistent with chf, UA/ruq ultrasound unremarkable -BC neg *CKD IIIb: *Alcohol abuse: *RUQ abdominal tenderness: not appreciated today -u/s with possible mild biliary sludge but no evidence of cholecystitis *Hyponatremia, mild: improved *ROMA on cpap: requires o2 while sleeping but on room air while awake *DM w/neuropathy: on ASA *HTN/HLD: on norvasc/ACEI/BB, eplerenone/lasix *GERD: *Morbid obesity: *Generalized weakness/debility: Discharge diagnosis: Acute on chronic CHF Secondary discharge diagnosis: Alcohol abuse chronic kidney disease hyponatremia obstructive sleep apnea diabetes hypertension morbid obesity generalized weakness Time Spent with Patient Time attestation: Total time spent providing and/or coordinating discharge services: Time spent: Greater than 30 minutes EXAM Constitutional Vitals: Temp Pulse Resp BP Pulse Ox 97.7 F 76 22 121/56 93 10/02/21 06:44 10/02/21 07:52 10/02/21 07:52 10/02/21 06:44 10/02/21 07:52 Discharge Data Data Completed and Pending Labs on day of discharge: Labs from last 24 hours 10/02/21 10/02/21 10/02/21 07:57 05:12 05:12 WBC RBC Hgb Hct MCV MCH MCHC RDW Plt Count MPV Neut % (Auto) Lymph % (Auto) Preston % (Auto) Eos % (Auto) Baso % (Auto) Lymph # (Auto) Preston # (Auto) Eos # (Auto) Baso # (Auto) Seg Neutrophils % 70 Lymphocytes % 16 Monocytes % (Manual) 11 Eosinophils % (Manual) 2 Myelocytes % 1 Absolute Neutrophils Platelet Estimate Normal RBC Morphology Normal Macrocytosis 1+ A Sodium Potassium Chloride Carbon Dioxide Anion Gap BUN Creatinine GFR Calculation Glucose Uric Acid 5.9 Calcium Total Bilirubin Direct Bilirubin AST ALT Alkaline Phosphatase C-Reactive Protein Total Protein Albumin Globulin Albumin/Globulin Ratio Procalcitonin Urine Color Urine Appearance Urine pH Ur Specific [place] Urine Protein Urine Glucose (UA) Urine Ketones Urine Occult Blood Urine Nitrate Urine Bilirubin Urine Urobilinogen Ur Leukocyte Esterase Ur Culture Indicated? Vancomycin Trough Pending 10/02/21 10/02/21 10/02/21 05:12 05:12 05:12 WBC RBC Hgb Hct MCV MCH MCHC RDW Plt Count MPV Neut % (Auto) Lymph % (Auto) Preston % (Auto) Eos % (Auto) Baso % (Auto) Lymph # (Auto) Preston # (Auto) Eos # (Auto) Baso # (Auto) Seg Neutrophils % Lymphocytes % Monocytes % (Manual) Eosinophils % (Manual) Myelocytes % Absolute Neutrophils Platelet Estimate RBC Morphology Macrocytosis Sodium 133 Potassium 3.8 Chloride 96 Carbon Dioxide 23 Anion Gap 14.0 BUN 29 H Creatinine 1.9 H GFR Calculation 34 Glucose 136 H Uric Acid Calcium 9.1 Total Bilirubin 0.5 Direct Bilirubin AST 26 ALT 19 Alkaline Phosphatase 138 H C-Reactive Protein 5.20 H Total Protein 6.4 Albumin 3.2 Globulin 3.2 Albumin/Globulin Ratio 1.0 Procalcitonin 0.50 H Urine Color Urine Appearance Urine pH Ur Specific [place] Urine Protein Urine Glucose (UA) Urine Ketones Urine Occult Blood Urine Nitrate Urine Bilirubin Urine Urobilinogen Ur Leukocyte Esterase Ur Culture Indicated? Vancomycin Trough 10/02/21 10/01/21 10/01/21 05:12 16:09 15:03 WBC 9.4 RBC 3.40 L Hgb 11.6 L Hct 34.9 L MCV 102.6 H MCH 34.1 H MCHC 33.2 RDW 13.7 Plt Count 185 MPV 10.2 Neut % (Auto) 74.4 Lymph % (Auto) 14.9 L Preston % (Auto) 8.7 Eos % (Auto) 1.1 Baso % (Auto) 0.9 Lymph # (Auto) 1.39 L Preston # (Auto) 0.81 Eos # (Auto) 0.10 Baso # (Auto) 0.08 Seg Neutrophils % Lymphocytes % Monocytes % (Manual) Eosinophils % (Manual) Myelocytes % Absolute Neutrophils 6.98 Platelet Estimate RBC Morphology Macrocytosis Sodium Potassium Chloride Carbon Dioxide Anion Gap BUN Creatinine GFR Calculation Glucose Uric Acid Calcium Total Bilirubin 0.8 Direct Bilirubin 0.3 H AST 24 ALT 19 Alkaline Phosphatase 149 H C-Reactive Protein Total Protein 6.4 Albumin 3.6 Globulin 2.8 Albumin/Globulin Ratio Procalcitonin Urine Color Straw Urine Appearance Clear Urine pH 6.0 Ur Specific [place] 1.004 Urine Protein Negative Urine Glucose (UA) Negative Urine Ketones Negative Urine Occult Blood Negative Urine Nitrate Negative Urine Bilirubin Negative Urine Urobilinogen Negative Ur Leukocyte Esterase Negative Ur Culture Indicated? No Vancomycin Trough 10/01/21 10/01/21 14:08 14:07 WBC RBC Hgb Hct MCV MCH MCHC RDW Plt Count MPV Neut % (Auto) Lymph % (Auto) Preston % (Auto) Eos % (Auto) Baso % (Auto) Lymph # (Auto) Preston # (Auto) Eos # (Auto) Baso # (Auto) Seg Neutrophils % Lymphocytes % Monocytes % (Manual) Eosinophils % (Manual) Myelocytes % Absolute Neutrophils Platelet Estimate RBC Morphology Macrocytosis Sodium Potassium Chloride Carbon Dioxide Anion Gap BUN Creatinine GFR Calculation Glucose Uric Acid Calcium Total Bilirubin Direct Bilirubin AST ALT Alkaline Phosphatase C-Reactive Protein 7.10 H Total Protein Albumin Globulin Albumin/Globulin Ratio Procalcitonin 0.62 H Urine Color Urine Appearance Urine pH Ur Specific [place] Urine Protein Urine Glucose (UA) Urine Ketones Urine Occult Blood Urine Nitrate Urine Bilirubin Urine Urobilinogen Ur Leukocyte Esterase Ur Culture Indicated? Vancomycin Trough Preliminary micro results at discharge 09/30/21 11:12 Blood Culture - Preliminary Blood Gram positive cocci 09/30/21 11:12 Blood Culture - Preliminary Blood Discharge Plan Patient/Caregiver Discharge Instructions Activity: increase activity as tolerated Diet: Consistent Carbohydrate Instructions: Heart Failure (GEN), Fluid Restriction (GEN) Activity Restrictions/Additional Instructions: Referral to see monomer recovery supervisor and 5 to 14 days for heart failure Prescriptions: New allopurinol 100 mg tablet 100 mg PO QDAY Qty: 30 RF: 0 propranolol 80 mg capsule,extended release 24 hr 80 mg PO BID Qty: 1 RF: 0 cefpodoxime 200 mg tablet 200 mg PO BID Qty: 8 RF: 0 Continued eplerenone [Inspra] 25 mg tablet 25 mg PO QDAY Qty: 30 RF: 11 alogliptin 12.5 mg tablet 12.5 mg PO QDAY RF: 0 gabapentin 300 mg capsule See Rx Instructions .ROUTE .COMPLEX RF: 0 pantoprazole 40 MG tablet 40 mg PO QAMAC RF: 0 folic acid 1 MG tablet 1 mg PO DAILY RF: 0 atorvastatin 20 mg tablet 40 mg PO HS RF: 0 calcium carbonate 500 MG tablet 1,000 mg PO DAILY RF: 0 aspirin 81 MG tablet,chewable 81 mg PO DAILY RF: 0 magnesium oxide 250 MG tablet 500 mg PO DAILY RF: 0 Vitamin B12 1,000 MCG tablet 1,000 mcg PO DAILY RF: 0 thiamine mononitrate (vit B1) 100 MG tablet 100 mg PO DAILY Qty: 30 RF: 0 cholecalciferol (vitamin D3) [Vitamin D3] 125 mcg (5,000 unit) Tablet 125 mcg PO 3XW RF: 0 multivitamin Tablet 1 tab PO QAM RF: 0 furosemide 40 mg tablet 40 mg PO DAILY RF: 0 lisinopril 10 mg Tablet 10 mg PO DAILY RF: 0 (DME) Accu-Chek Guide test strips Strip MISCELLANEOUS RF: 0 (DME) lancets [Accu-Chek Softclix Lancets] Misc MISCELLANEOUS RF: 0 Discontinued propranolol 80 mg capsule,extended release 24 hr 80 mg PO BID Qty: 180 RF: 3 amlodipine 5 mg tablet 5 mg PO QDAY Qty: 90 RF: 4 allopurinol [Zyloprim] 300 MG tablet 300 mg PO DAILY RF: 0 Follow Up Plan Follow up with: Jimena Jackson ARNP [Primary Care Provider] - 10/13/21 2:30 pm (Please arrive 15 minutes early) Patient Disposition: Home, Self-Care Prognosis: Fair Overall status at discharge: patient is progressing back to baseline Discharge Orders: Discharge Order (Routine); Ordered 10/03/21 Ordered By: Fredis Thurston
[2021-10-02] MEDS: SENNOSIDES 1 TABLET PO SCH (21:22)
[2021-10-03] MEDS: 0.9 % SODIUM CHLORIDE 10 ML SYRINGE IV SCH (05:52)
--- NOTE | 2021-10-03 07:15 | EKG ---
[facility] Test Date: 2021-09-30 Pat Name: Torsten Marroquin Department: ED Room: Gender: Male [employer] Developer: sb : 1945 Requested By: Waylon Putnam Order Number: [id number] Reading MD: Lopez Castillo Measurements Intervals [place] Rate: 113 P: -1 MA: 181 QRS: 42 QRSD: 147 T: 18 QT: 441 QTc: 605 Interpretive Statements Sinus tachycardia LBBB Excessive artifact Not significantly changed from prior Electronically Signed On 10-03-2021 7:15:27 PDT by Lopez Castillo /[email or web address]/[id number]
--- NOTE | 2021-10-03 07:16 | EKG ---
[facility] Test Date: 2021-09-30 Pat Name: Torsten Marroquin Department: ED Room: Gender: Male [employer] Sexer: sb : 1945 Requested By: Waylon Putnam Order Number: [id number] Reading MD: Lopez Castillo Measurements Intervals [place] Rate: 63 P: 46 W[place]: 190 QRS: 10 QRSD: 146 T: -3 QT: 488 QTc: 500 Interpretive Statements Sinus rhythm Supraventricular bigeminy Left bundle branch block Electronically Signed On 10-03-2021 7:16:13 PDT by Lopez Castillo /[email or web address]/[id number]
--- NOTE | 2021-10-03 07:34 | Internal Med Progress Note ---
SUBJECTIVE Subjective Patient information: Note initiated : 10/03/21 at 7:30 am Service Date, if different from initiated Date: [] Patient: Torsten Marroquin 76 y/o M admitted on 09/30/21 for shortness of breath, abd pain. Chief Complaint: [] Principal diagnosis: Acute on chronic CHF Interval history: History of present illness: Mr. Marroquin is a 76 year old M History of present illness: Mr. Marroquin is a 76 year old M with CKD 3 and diabetes says has gained 7lbs fluid in last week. Was admitted for CHF 07/2021. not very responsive to diuretics. Wt now 298 and he is 5'8". Pt with diabetes states BS runs in the 150 range. has sleep apnea but uses cpap 19 and sleeps through the night. denies chest pain or orthopnea. admits to severe leg swelling. Pt had covid vaccine 3-4 months ago. denies cough or fever drinks 5-7 shots vodka daily at the bar. doesnt drink at home alone. goes there to socialize because due to neuropathy cant do anything anymore. Was a [employer] in the [employer]. 19 years ago 10/01 Interval history: pt with some RUQ pain but not much change with eating. no nausea or vomiting. Gall bladder and appendix still intact seen by wound care. no ulcerations on legs. Pertinent ROS: mild fever 99 yest Additional PMFSH (Level 3 Only): drinks 9 oz vodka daily 100 calories plus 50 calories cranberry juice each drink 10/02 Feeling better. Breathing better. occasional cough. Feels less swollen his feet. Needs CPAP while sleeping but on room air while awake. Good urine output. Leukocytosis resolved. CRP and mildly elevated pro-Klaus is improving. Abdominal ultrasound unremarkable for cholecystitis. UA unremarkable. Chest x- ray clearing more in line with CHF and pneumonia. 10/03 Feeling better. No shortness of breath at rest. No overnight event or new complaints. Renal function stable. CRP improved. pending f/u pct. Review of Systems: denies headache/fever/chills/nausea/vomiting/chest or abdominal pain/diarrhea. Otherwise see above. Constitutional Vitals: Vital Signs Temp Pulse Resp BP Pulse Ox 98.3 F 60 12 118/81 98 10/02/21 23:52 10/03/21 06:27 10/03/21 06:27 10/03/21 04:00 10/03/21 06:29 Period Temp Pulse Resp BP Sys/Martel Pulse Ox Last 24 Hr 97.3 F-99.1 F 60-77 12- 103-123/57-81 92-98 Intake and Output 10/02/21 10/03/21 10/03/21 21:59 05:59 13:59 Intake Total 540 480 Output Total 250 550 Balance 290 -70 Weight 130.635 kg Intake & Output: Intake & Output 10/02/21 10/03/21 10/03/21 21:59 05:59 13:59 Intake Total 540 480 Output Total 250 550 Balance 290 -70 Weight 130.635 kg Intake: Beer quantity 300 Oral 240 480 Output: Void Amount 250 550 Other: Meal Dinner Percent of Meal Consumed 100% Urine Appearance Clear Clear Urine Color Pale Pale Stool Size Moderate Stool Color Brown Stool Consistency Loose # Bowel Movements 1 Exam: General: Alert, Awake, No acute Distress Eyes/N/T: EOMI, Head/Neck: neck supple, CV: RRR, No murmurs, Pulm: bibase rales, mild diminished, no wheezing Abd: soft, RUQ not particularly tender when palpating compared to rest of abdomen, +BS x4 Ext: no clubbing/cyanosis, b/l LE 1-2+ edema Neuro: Alert, no focal deficits, moves all extremities, Skin: warm/dry OBJ DATA Labs CBC & Chem 7: 10/02/21 05:12 10/03/21 06:03 Labs: Abnormal Lab Results 10/02/21 10/02/21 10/02/21 07:57 05:12 05:12 WBC RBC Hgb Hct MCV MCH Neut % (Auto) Lymph % (Auto) Lymph # (Auto) Absolute Neutrophils Macrocytosis 1+ A POC Sodium Sodium Potassium POC Chloride Chloride Carbon Dioxide Anion Gap POC BUN BUN Creatinine POC Creatinine Glucose POC Glucose Hemoglobin A1c POC WB Ioniz Calcium Total Bilirubin Direct Bilirubin Alkaline Phosphatase C-Reactive Protein NT-Pro-B Natriuret Pep Procalcitonin 0.50 H Cortisol PM Sample Vancomycin Trough 26.3 H* 10/02/21 10/02/21 10/02/21 05:12 05:12 05:12 WBC RBC 3.40 L Hgb 11.6 L Hct 34.9 L MCV 102.6 H MCH 34.1 H Neut % (Auto) Lymph % (Auto) 14.9 L Lymph # (Auto) 1.39 L Absolute Neutrophils Macrocytosis POC Sodium Sodium Potassium POC Chloride Chloride Carbon Dioxide Anion Gap POC BUN BUN 29 H Creatinine 1.9 H POC Creatinine Glucose 136 H POC Glucose Hemoglobin A1c POC WB Ioniz Calcium Total Bilirubin Direct Bilirubin Alkaline Phosphatase 138 H C-Reactive Protein 5.20 H NT-Pro-B Natriuret Pep Procalcitonin Cortisol PM Sample Vancomycin Trough 10/01/21 10/01/21 10/01/21 15:03 14:08 14:07 WBC RBC Hgb Hct MCV MCH Neut % (Auto) Lymph % (Auto) Lymph # (Auto) Absolute Neutrophils Macrocytosis POC Sodium Sodium Potassium POC Chloride Chloride Carbon Dioxide Anion Gap POC BUN BUN Creatinine POC Creatinine Glucose POC Glucose Hemoglobin A1c POC WB Ioniz Calcium Total Bilirubin Direct Bilirubin 0.3 H Alkaline Phosphatase 149 H C-Reactive Protein 7.10 H NT-Pro-B Natriuret Pep Procalcitonin 0.62 H Cortisol PM Sample Vancomycin Trough 10/01/21 09/30/21 09/30/21 05:35 18:41 18:41 WBC RBC Hgb Hct MCV MCH Neut % (Auto) Lymph % (Auto) Lymph # (Auto) Absolute Neutrophils Macrocytosis POC Sodium Sodium 132 L 128 L Potassium 5.2 H POC Chloride Chloride 95 L 90 L Carbon Dioxide 20 L Anion Gap 18.0 H POC BUN BUN 27 H 25 H Creatinine 1.6 H 1.6 H POC Creatinine Glucose 127 H 159 H POC Glucose Hemoglobin A1c POC WB Ioniz Calcium Total Bilirubin Direct Bilirubin Alkaline Phosphatase C-Reactive Protein NT-Pro-B Natriuret Pep Procalcitonin Cortisol PM Sample 18.5 H Vancomycin Trough 09/30/21 09/30/21 09/30/21 10:24 10:24 10:24 WBC 15.9 H RBC 4.06 L Hgb Hct MCV 101.2 H MCH 34.5 H Neut % (Auto) 87.4 H Lymph % (Auto) 6.1 L Lymph # (Auto) 0.96 L Absolute Neutrophils 13.87 H Macrocytosis POC Sodium 127 L Sodium 128 L Potassium 5.4 H POC Chloride 95 L Chloride 89 L Carbon Dioxide 17 L Anion Gap 22.0 H POC BUN 24 H BUN Creatinine 1.6 H POC Creatinine 1.7 H Glucose 170 H POC Glucose 170 H Hemoglobin A1c 6.2 H POC WB Ioniz Calcium 1.13 L Total Bilirubin 1.4 H Direct Bilirubin Alkaline Phosphatase 193 H C-Reactive Protein NT-Pro-B Natriuret Pep 7090.0 H Procalcitonin Cortisol PM Sample Vancomycin Trough Meds: Medications Allopurinol (Allopurinol 300 Mg Tablet) 300 mg PO DAILY [facility] Last Admin: 10/02/21 08:08 Dose: 300 mg Documented by: Aspirin (Aspirin 81 Mg Tab.Chew) 81 mg PO DAILY [facility] Last Admin: 10/02/21 08:09 Dose: 81 mg Documented by: Bumetanide (Bumetanide 1 Mg/4 Ml Vial) 1 mg IV BID [facility] Last Admin: 10/02/21 21:19 Dose: 1 mg Documented by: Clonidine HCl (Clonidine Hcl 0.1 Mg Tablet) 0.1 mg PO Q4HP PRN PRN Reason: ALC Last Admin: 10/02/21 01:30 Dose: 0.1 mg Documented by: Dextrose (Dextrose 50% 50 Ml Vial) 0 ml IV UD PRN PRN Reason: Hypoglycemia Diagnostic Test (Pha) (Accu-Chek 1 Each Strip) 1 each FS ACHS [facility] Last Admin: 10/02/21 21:20 Dose: 1 each Documented by: Docusate Sodium (Docusate Sodium 100 Mg Capsule) 100 mg PO BID [facility] Last Admin: 10/02/21 21:21 Dose: Not Given Documented by: Folic Acid (Folic Acid 1 Mg Tablet) 1 mg PO DAILY [facility] Last Admin: 10/02/21 08:09 Dose: 1 mg Documented by: Gabapentin (Gabapentin 300 Mg Capsule) 300 mg PO QAM [facility] Last Admin: 10/02/21 08:10 Dose: 300 mg Documented by: Gabapentin (Gabapentin 300 Mg Capsule) 600 mg PO HS [facility] Last Admin: 10/02/21 21:21 Dose: 600 mg Documented by: Glucose (Dextrose 31 Gm Oral.Susp) 15 gm PO PRN PRN PRN Reason: Hypoglycemia Heparin Sodium (Porcine) (Heparin 5,000 Unit/Ml Vial) 5,000 unit SQ Q12 [facility] Last Admin: 10/02/21 21:19 Dose: 5,000 unit Documented by: Ceftriaxone Sodium 2 gm/ (Dextrose) 50 mls @ 100 mls/hr IV DAILY [facility]; Protocol Last Infusion: 10/02/21 10:53 Dose: Infused Documented by: Azithromycin 500 mg/ Dextrose 250 mls @ 250 mls/hr IV DAILY [facility]; Protocol Stop: 10/03/21 09:59 Last Infusion: 10/02/21 10:12 Dose: Infused Documented by: Insulin Human Lispro (Insulin Lispro 1 Unit/0.01 Ml Unit) 0 unit SQ ACHS [facility]; Protocol Last Admin: 10/02/21 21:20 Dose: 2 units Documented by: Iron Carb/Multivit/[place]/Folic Acid (Multivit,Ther Iron,Ca,Fa & Min 1 Tablet) 1 tab PO DAILY [facility] Last Admin: 10/02/21 08:09 Dose: 1 tab Documented by: Lisinopril (Lisinopril 10 Mg Tablet) 10 mg PO DAILY [facility] Last Admin: 10/02/21 08:09 Dose: 10 mg Documented by: Lorazepam (Lorazepam 2 Mg/Ml Vial) 0 mg IV Q4HP PRN; Protocol PRN Reason: Alcohol Withdrawal Last Admin: 10/02/21 02:13 Dose: 1 mg Documented by: Magnesium Oxide (Magnesium Oxide 400 Mg Tablet) 400 mg PO DAILY [facility] Last Admin: 10/02/21 08:11 Dose: 400 mg Documented by: Metolazone (Metolazone 2.5 Mg Tablet) 5 mg PO BID@0730,1600 [facility] Last Admin: 10/02/21 15:37 Dose: 5 mg Documented by: Metoprolol Tartrate (Metoprolol Tartrate 50 Mg Tablet) 50 mg PO BID [facility] Last Admin: 10/02/21 21:21 Dose: Not Given Documented by: Ondansetron HCl (Ondansetron 4 Mg/2 Ml Vial) 4 mg IV Q6HP PRN PRN Reason: Nausea And Vomiting Senna (Sennosides 1 Tablet) 2 tab PO HS [facility] Last Admin: 10/02/21 21:22 Dose: Not Given Documented by: Sodium Chloride (0.9 % Sodium Chloride 10 Ml Syringe) 10 ml IV Q8 [facility] Last Admin: 10/03/21 05:52 Dose: 10 ml Documented by: Thiamine HCl (Thiamine 100 Mg Tablet) 100 mg PO DAILY [facility] Last Admin: 10/02/21 08:10 Dose: 100 mg Documented by: A/P Narrative A/P Narrative: A: *Acute on chronic diastolic CHF: improved -good UOP -f/u CXR unremarkable *?infection: leukocytosis, elevated crp, mildley elevated PCT -CXR more consistent with chf, UA/ruq ultrasound unremarkable -leukocytosis resolved, crp improved, pct improving -BC neg thus far *CKD IIIb: *Alcohol abuse: *RUQ abdominal tenderness: not appreciated today -u/s with possible mild biliary sludge but no evidence of cholecystitis *Hyponatremia, mild: improved *ROMA on cpap: requires o2 while sleeping but on room air while awake *DM w/neuropathy: on ASA *HTN/HLD: on norvasc/ACEI/BB, eplerenone/lasix *GERD: *Morbid obesity: *Generalized weakness/debility: *gpc in 1 bottle a contaminant P: -diuresis -low na diet & fluid restriction -monitor for withdrawal -Abx pending BC and f/u PCT -CIWA, vitamins -cont BB/ACEI -SSI -pt/ot -ppx: heparin/ home ppi Time Spent With Patient Time: Total time spent is greater than 50% in coordination of care (as documented) at patient's floor/unit and/or counseling patient:
[2021-10-03 07:53] LABS: ALT/SGPT 21 U/L (<40); AST/SGOT 26 U/L (<40); Albumin 3.3 gm/dL (3.2-5.2); Albumin/Globulin Ratio 1.3 (1.0-2.3); Alkaline Phosphatase 124 U/L (39-117); Bilirubin,Direct < 0.2 mg/dL (0-0.3); Bilirubin,Total 0.4 mg/dL (0.1-1.0); Blood Urea Nitrogen 29 mg/dL (8-23); Calcium 8.9 mg/dL (8.6-10.4); Carbon Dioxide 25 mmol/L (22-30); Chloride 98 mmol/L (96-108); Globulin 2.6 gm/dL (2.2-3.7); Glomerular Filtration Rate 36; Glucose 136 mg/dL (70-105); Lactate Dehydrogenase 133 U/L (135-225); Phosphorous 4.7 mg/dL (2.5-4.5); Triglycerides 112 mg/dL (<150)
[2021-10-03] MEDS: METOLAZONE 2.5 MG TABLET PO SCH (07:56)
[2021-10-03] MEDS: INSULIN LISPRO 1 UNIT/0.01 ML UNIT SQ SCH ×2 (08:00→11:51)
[2021-10-03 08:11] LABS: Vancomycin,Random 16.3 ug/mL
[2021-10-03] MEDS: DOCUSATE SODIUM 100 MG CAPSULE PO SCH (09:03)
[2021-10-03] MEDS: HEPARIN 5,000 UNIT/ML VIAL SQ SCH (09:16)
[2021-10-03] MEDS: cefTRIAXone 2 GM in DEXTROSE 5% IN WATER 50 ML IV SCH (09:16)
[2021-10-03] MEDS: METOPROLOL TARTRATE 50 MG TABLET PO SCH (09:17)
[2021-10-03] MEDS: MULTIVIT,THER IRON,CA,FA & MIN 1 TABLET PO SCH (09:17)
[2021-10-03] MEDS: LISINOPRIL 10 MG TABLET PO SCH (09:17)
[2021-10-03] MEDS: ALLOPURINOL 300 MG TABLET PO SCH (09:17)
[2021-10-03] MEDS: THIAMINE 100 MG TABLET PO SCH (09:17)
[2021-10-03] MEDS: FOLIC ACID 1 MG TABLET PO SCH (09:17)
[2021-10-03] MEDS: ASPIRIN 81 MG TAB.CHEW PO SCH (09:18)
[2021-10-03] MEDS: MAGNESIUM OXIDE 400 MG TABLET PO SCH (09:18)
[2021-10-03] MEDS: GABAPENTIN 300 MG CAPSULE PO SCH (09:18)
[2021-10-03] MEDS: AZITHROMYCIN 500 MG in DEXTROSE 5% IN WATER 250 ML IV SCH (10:13)
[2021-10-03] MEDS: BUMETANIDE 1 MG/4 ML VIAL IV SCH (10:24)
== END 2021-10-03 14:50 | disposition home or self-care (01) | DRG 291 ==
LOC: ED 09:57 → ICU 14:59
PROVIDERS: ADMIT Internal Medicine; ATTEND Internal Medicine

== ENCOUNTER 2023-08-03 04:40 | Inpatient (IN) ==
[2023-08-03 05:43] LABS: POC Calcium, Ionized 1.13 (1.16-1.32); POC Creatinine 1.9 (0.6-1.2); POC Potassium 3.2 (3.3-5.1)
[2023-08-03 06:06] LABS: Basophils # (Auto) 0.06 K/mcL (0.00-0.30); Basophils % (Auto) 0.6 % (0.0-2.0); Eosinophils # (Auto) 0.04 K/mcL (0.00-0.70); Eosinophils % (Auto) 0.4 % (0.0-7.0); Hematocrit 39.4 % (40.1-51.0); Hemoglobin 12.9 g/dL (13.7-17.5); Lymphocytes # (Auto) 1.02 K/mcL (1.50-4.80); Lymphocytes % (Auto) 10.4 % (15.5-49.0); Mean Cell Volume 103.1 fL (80.0-100.0); Mean Corpuscular HGB Conc 32.7 g/dL (31.0-36.0); Mean Platelet Volume 9.7 fL (8.8-12.5); Monocytes # (Auto) 0.96 K/mcL (0.10-0.90); Monocytes % (Auto) 9.8 % (1.0-12.0); Neutrophils % (Auto) 77.9 % (38.0-78.0); Platelet Count 191 K/mcL (140-440); RBC 3.82 M/mcL (4.63-6.08); Red Cell Distribution Width 12.6 % (11.5-14.5); WBC 9.8 K/mcL (4.5-11.0)
[2023-08-03] MEDS ORDERED: morphine 2 MG/ML VIAL IV ONE (06:31)
[2023-08-03] MEDS ORDERED: POTASSIUM CHLORIDE 20 MEQ PACKET PO ONE (06:32)
[2023-08-03] MEDS ORDERED: ceFAZolin 1 GM VIAL IV SCH (07:00)
[2023-08-03 08:44] LABS: Alcohol, Blood < 10.0 mg/dL; Alcohol,Blood < 0.010 gm/dL (<0.010)
[2023-08-03] MEDS: ceFAZolin 2 GM in DEXTROSE 5% IN WATER 50 ML IV SCH ×2 (08:44→17:24)
[2023-08-03] MEDS ORDERED: DEXTROSE 50% 50 ML VIAL IV PRN (09:55)
[2023-08-03] MEDS ORDERED: HYDROmorphone 0.5 MG/0.5 ML SYRINGE IV PRN (09:55)
[2023-08-03] MEDS ORDERED: ONDANSETRON 4 MG/2 ML VIAL IV PRN (09:55)
[2023-08-03] MEDS ORDERED: ALBUTEROL SULFATE 2.5 MG/3 ML NEBULIZER NEB PRN (09:55)
[2023-08-03] MEDS ORDERED: DEXTROSE 31 GM ORAL.SUSP PO PRN (09:55)
[2023-08-03] MEDS ORDERED: ACETAMINOPHEN 325 MG TABLET PO PRN (09:55)
[2023-08-03] MEDS: DOCUSATE SODIUM 100 MG CAPSULE PO SCH ×2 (10:37→20:05)
[2023-08-03] MEDS: INSULIN LISPRO 1 UNIT/0.01 ML UNIT SQ SCH ×4 (10:37→22:05)
[2023-08-03] MEDS: NYSTATIN POWDER BOTTLE 15GM TOPICAL SCH ×2 (11:34→14:23)
[2023-08-03] MEDS ORDERED: FUROSEMIDE 40 MG/4 ML VIAL IV SCH (12:00)
[2023-08-03] MEDS: 0.9 % SODIUM CHLORIDE 10 ML SYRINGE IV SCH (13:08)
[2023-08-03] MEDS ORDERED: POTASSIUM CHLORIDE 20 MEQ TABLET PO SCH (16:00)
[2023-08-03] MEDS: HYDROcodone/APAP 5/325MG TABLET PO PRN ×2 (16:08→20:05)
[2023-08-03] MEDS ORDERED: ceFAZolin 1 GM VIAL ONE (16:47)
[2023-08-03] MEDS: SENNOSIDES 1 TABLET PO SCH (20:05)
[2023-08-04] MEDS: ceFAZolin 2 GM in DEXTROSE 5% IN WATER 50 ML IV SCH ×3 (00:56→18:09)
[2023-08-04] MEDS: 0.9 % SODIUM CHLORIDE 10 ML SYRINGE IV SCH ×4 (00:57→16:00)
[2023-08-04] MEDS: HYDROcodone/APAP 5/325MG TABLET PO PRN ×2 (00:58→21:03)
[2023-08-04] MEDS: NYSTATIN POWDER BOTTLE 15GM TOPICAL SCH ×3 (01:05→16:14)
[2023-08-04 06:45] LABS: Basophils # (Auto) 0.07 K/mcL (0.00-0.30); Basophils % (Auto) 0.8 % (0.0-2.0); Eosinophils # (Auto) 0.31 K/mcL (0.00-0.70); Eosinophils % (Auto) 3.5 % (0.0-7.0); Hematocrit 38.5 % (40.1-51.0); Hemoglobin 12.8 g/dL (13.7-17.5); Lymphocytes # (Auto) 1.98 K/mcL (1.50-4.80); Lymphocytes % (Auto) 22.6 % (15.5-49.0); Mean Corpuscular HGB Conc 33.2 g/dL (31.0-36.0); Mean Platelet Volume 9.8 fL (8.8-12.5); Monocytes # (Auto) 0.81 K/mcL (0.10-0.90); Monocytes % (Auto) 9.3 % (1.0-12.0); Neutrophils % (Auto) 63.1 % (38.0-78.0); Platelet Count 198 K/mcL (140-440); RBC 3.81 M/mcL (4.63-6.08); Red Cell Distribution Width 12.8 % (11.5-14.5); WBC 8.8 K/mcL (4.5-11.0)
[2023-08-04 07:11] LABS: ALT/SGPT 11 U/L (<40); AST/SGOT 20 U/L (<40); Alkaline Phosphatase 136 U/L (39-117); Bilirubin,Direct 0.2 mg/dL (<0.3); Bilirubin,Total 0.7 mg/dL (0.1-1.0); Blood Urea Nitrogen 19 mg/dL (8-23); Calcium 8.8 mg/dL (8.6-10.4); Carbon Dioxide 24 mmol/L (22-30); Chloride 102 mmol/L (96-108); Globulin 3.1 gm/dL (2.2-3.7); Glomerular Filtration Rate 49; Glucose 133 mg/dL (70-105); Lactate Dehydrogenase 177 U/L (135-225); Phosphorous 2.3 mg/dL (2.5-4.5); Triglycerides 89 mg/dL (<150); Uric Acid 6.8 mg/dL (2.5-8.0)
[2023-08-04] MEDS: INSULIN LISPRO 1 UNIT/0.01 ML UNIT SQ SCH ×4 (07:47→21:04)
[2023-08-04] MEDS ORDERED: POTASSIUM CHLORIDE 20 MEQ TABLET PO SCH ×2 (07:58→14:00)
[2023-08-04] MEDS ORDERED: LISINOPRIL 10 MG TABLET PO SCH (09:00)
[2023-08-04] MEDS ORDERED: LORazepam 2 MG/ML VIAL IV PRN (10:36)
[2023-08-04] MEDS: DOCUSATE SODIUM 100 MG CAPSULE PO SCH ×2 (10:56→20:48)
[2023-08-04] MEDS: GABAPENTIN 300 MG CAPSULE PO SCH ×2 (10:57→20:49)
[2023-08-04] MEDS: METOPROLOL SUCCINATE 25 MG TAB.XL.24H PO SCH ×2 (10:57→20:48)
[2023-08-04] MEDS: FUROSEMIDE 40 MG/4 ML VIAL IV SCH ×2 (10:57→15:59)
[2023-08-04] MEDS: HEPARIN 5,000 UNIT/ML VIAL SQ SCH (15:53)
[2023-08-04] MEDS: ATORVASTATIN 20 MG TABLET PO SCH (20:48)
[2023-08-04] MEDS: SENNOSIDES 1 TABLET PO SCH (20:48)
[2023-08-05] MEDS: HYDROcodone/APAP 5/325MG TABLET PO PRN ×4 (00:30→22:21)
[2023-08-05] MEDS: HEPARIN 5,000 UNIT/ML VIAL SQ SCH ×4 (00:31→22:49)
[2023-08-05] MEDS: ceFAZolin 2 GM in DEXTROSE 5% IN WATER 50 ML IV SCH ×3 (00:37→18:13)
[2023-08-05] MEDS: 0.9 % SODIUM CHLORIDE 10 ML SYRINGE IV SCH ×8 (00:37→23:58)
[2023-08-05] MEDS: NYSTATIN POWDER BOTTLE 15GM TOPICAL SCH ×4 (00:41→22:52)
[2023-08-05 06:59] LABS: Basophils # (Auto) 0.07 K/mcL (0.00-0.30); Basophils % (Auto) 0.9 % (0.0-2.0); Eosinophils # (Auto) 0.33 K/mcL (0.00-0.70); Eosinophils % (Auto) 4.2 % (0.0-7.0); Hematocrit 38.2 % (40.1-51.0); Hemoglobin 12.6 g/dL (13.7-17.5); Lymphocytes # (Auto) 2.13 K/mcL (1.50-4.80); Lymphocytes % (Auto) 27.1 % (15.5-49.0); Mean Cell Volume 102.7 fL (80.0-100.0); Mean Platelet Volume 10.1 fL (8.8-12.5); Monocytes # (Auto) 0.71 K/mcL (0.10-0.90); Platelet Count 208 K/mcL (140-440); RBC 3.72 M/mcL (4.63-6.08); Red Cell Distribution Width 12.9 % (11.5-14.5); WBC 7.9 K/mcL (4.5-11.0)
[2023-08-05 07:37] LABS: ALT/SGPT 7 U/L (<40); AST/SGOT 26 U/L (<40); Albumin 2.8 gm/dL (3.2-5.2); Albumin/Globulin Ratio 0.9 (1.0-2.3); Alkaline Phosphatase 137 U/L (39-117); Bilirubin,Direct 0.2 mg/dL (<0.3); Bilirubin,Total 0.5 mg/dL (0.1-1.0); Blood Urea Nitrogen 20 mg/dL (8-23); Calcium 8.8 mg/dL (8.6-10.4); Carbon Dioxide 26 mmol/L (22-30); Chloride 101 mmol/L (96-108); Globulin 3.2 gm/dL (2.2-3.7); Glomerular Filtration Rate 49; Glucose 120 mg/dL (70-105); Lactate Dehydrogenase 167 U/L (135-225); Phosphorous 2.6 mg/dL (2.5-4.5); Triglycerides 97 mg/dL (<150); Uric Acid 6.8 mg/dL (2.5-8.0)
[2023-08-05] MEDS: MULTIVIT,THER IRON,CA,FA & MIN 1 TABLET PO SCH ×2 (08:26→10:14)
[2023-08-05] MEDS: FOLIC ACID 1 MG TABLET PO SCH ×2 (08:26→10:14)
[2023-08-05] MEDS: THIAMINE 100 MG TABLET PO SCH (08:27)
[2023-08-05] MEDS: PANTOPRAZOLE 40 MG TABLET PO SCH ×2 (08:28→10:14)
[2023-08-05] MEDS ORDERED: LISINOPRIL 10 MG TABLET PO SCH (09:00)
[2023-08-05] MEDS ORDERED: POTASSIUM CHLORIDE 20 MEQ TABLET PO ONE (09:03)
[2023-08-05] MEDS ORDERED: FUROSEMIDE 40 MG/4 ML VIAL IV SCH (09:05)
[2023-08-05] MEDS ORDERED: FUROSEMIDE 40 MG/4 ML VIAL IV ONE (09:14)
[2023-08-05] MEDS: DOCUSATE SODIUM 100 MG CAPSULE PO SCH ×3 (09:31→22:20)
[2023-08-05] MEDS: INSULIN LISPRO 1 UNIT/0.01 ML UNIT SQ SCH ×4 (10:01→22:31)
[2023-08-05] MEDS: EZETIMIBE 10 MG TABLET PO SCH ×2 (10:14→10:15)
[2023-08-05] MEDS: METOPROLOL SUCCINATE 25 MG TAB.XL.24H PO SCH ×3 (10:15→22:39)
[2023-08-05] MEDS: GABAPENTIN 300 MG CAPSULE PO SCH ×2 (10:15→22:19)
[2023-08-05] MEDS: ALLOPURINOL 100 MG TABLET PO SCH (10:16)
[2023-08-05] MEDS: HYDROmorphone 0.5 MG/0.5 ML SYRINGE IV PRN (20:51)
[2023-08-05] MEDS: ATORVASTATIN 20 MG TABLET PO SCH (22:21)
[2023-08-05] MEDS: SENNOSIDES 1 TABLET PO SCH (22:41)
[2023-08-05] MEDS: FUROSEMIDE 40 MG TABLET PO SCH (22:47)
[2023-08-06] MEDS: ceFAZolin 2 GM in DEXTROSE 5% IN WATER 50 ML IV SCH ×2 (00:01→09:07)
[2023-08-06] MEDS: HYDROcodone/APAP 5/325MG TABLET PO PRN ×2 (03:00→09:07)
[2023-08-06] MEDS: 0.9 % SODIUM CHLORIDE 10 ML SYRINGE IV SCH ×4 (06:03→22:53)
[2023-08-06] MEDS: HEPARIN 5,000 UNIT/ML VIAL SQ SCH ×3 (06:03→22:52)
[2023-08-06 06:18] LABS: Basophils # (Auto) 0.06 K/mcL (0.00-0.30); Basophils % (Auto) 0.7 % (0.0-2.0); Eosinophils # (Auto) 0.43 K/mcL (0.00-0.70); Eosinophils % (Auto) 5.3 % (0.0-7.0); Hematocrit 39.5 % (40.1-51.0); Hemoglobin 13.1 g/dL (13.7-17.5); Lymphocytes # (Auto) 2.27 K/mcL (1.50-4.80); Lymphocytes % (Auto) 27.8 % (15.5-49.0); Mean Cell Volume 101.8 fL (80.0-100.0); Mean Corpuscular HGB Conc 33.2 g/dL (31.0-36.0); Mean Platelet Volume 9.8 fL (8.8-12.5); Monocytes # (Auto) 0.68 K/mcL (0.10-0.90); Monocytes % (Auto) 8.3 % (1.0-12.0); Neutrophils % (Auto) 57.3 % (38.0-78.0); Platelet Count 227 K/mcL (140-440); RBC 3.88 M/mcL (4.63-6.08); Red Cell Distribution Width 12.9 % (11.5-14.5); WBC 8.2 K/mcL (4.5-11.0)
[2023-08-06 06:40] LABS: ALT/SGPT 5 U/L (<40); AST/SGOT 26 U/L (<40); Albumin 3.1 gm/dL (3.2-5.2); Albumin/Globulin Ratio 1.1 (1.0-2.3); Alkaline Phosphatase 142 U/L (39-117); Bilirubin,Direct < 0.2 mg/dL (0-0.3); Bilirubin,Total 0.4 mg/dL (0.1-1.0); Blood Urea Nitrogen 25 mg/dL (8-23); Carbon Dioxide 27 mmol/L (22-30); Chloride 101 mmol/L (96-108); Globulin 2.9 gm/dL (2.2-3.7); Glomerular Filtration Rate 49; Glucose 126 mg/dL (70-105); Lactate Dehydrogenase 162 U/L (135-225); Phosphorous 3.2 mg/dL (2.5-4.5); Triglycerides 117 mg/dL (<150); Uric Acid 7.4 mg/dL (2.5-8.0)
[2023-08-06] MEDS: PANTOPRAZOLE 40 MG TABLET PO SCH (07:21)
[2023-08-06] MEDS: INSULIN LISPRO 1 UNIT/0.01 ML UNIT SQ SCH ×4 (07:22→20:40)
[2023-08-06] MEDS: ceFAZolin 1 GM VIAL ONE ×2 (08:43→09:04)
[2023-08-06] MEDS: FUROSEMIDE 40 MG TABLET PO SCH (08:43)
[2023-08-06] MEDS: DOCUSATE SODIUM 100 MG CAPSULE PO SCH ×2 (08:43→20:40)
[2023-08-06] MEDS: GABAPENTIN 300 MG CAPSULE PO SCH ×2 (08:44→20:42)
[2023-08-06] MEDS: THIAMINE 100 MG TABLET PO SCH (08:44)
[2023-08-06] MEDS: METOPROLOL SUCCINATE 25 MG TAB.XL.24H PO SCH ×2 (08:44→20:40)
[2023-08-06] MEDS: MULTIVIT,THER IRON,CA,FA & MIN 1 TABLET PO SCH (08:44)
[2023-08-06] MEDS: EZETIMIBE 10 MG TABLET PO SCH (08:44)
[2023-08-06] MEDS: FOLIC ACID 1 MG TABLET PO SCH (08:44)
[2023-08-06] MEDS: ALLOPURINOL 100 MG TABLET PO SCH (08:45)
[2023-08-06] MEDS: NYSTATIN POWDER BOTTLE 15GM TOPICAL SCH ×3 (08:50→20:43)
[2023-08-06] MEDS ORDERED: POTASSIUM CHLORIDE 20 MEQ TABLET PO ONE (11:27)
[2023-08-06] MEDS: FUROSEMIDE 40 MG/4 ML VIAL IV SCH (15:52)
[2023-08-06] MEDS: ceFAZolin 1 GM VIAL IV SCH ×2 (15:52→22:52)
[2023-08-06] MEDS: ATORVASTATIN 20 MG TABLET PO SCH (20:38)
[2023-08-06] MEDS: SENNOSIDES 1 TABLET PO SCH (20:39)
[2023-08-07] MEDS: ceFAZolin 1 GM VIAL IV SCH ×3 (05:32→22:32)
[2023-08-07] MEDS: HEPARIN 5,000 UNIT/ML VIAL SQ SCH ×3 (05:32→21:26)
[2023-08-07] MEDS: 0.9 % SODIUM CHLORIDE 10 ML SYRINGE IV SCH ×3 (05:33→21:28)
[2023-08-07] MEDS: PANTOPRAZOLE 40 MG TABLET PO SCH (07:15)
[2023-08-07] MEDS: INSULIN LISPRO 1 UNIT/0.01 ML UNIT SQ SCH ×4 (07:18→21:26)
[2023-08-07 08:31] LABS: Blood Urea Nitrogen 30 mg/dL (8-23); Calcium 9.2 mg/dL (8.6-10.4); Carbon Dioxide 26 mmol/L (22-30); Chloride 100 mmol/L (96-108); Glomerular Filtration Rate 41; Glucose 129 mg/dL (70-105)
[2023-08-07] MEDS: FUROSEMIDE 40 MG/4 ML VIAL IV SCH (08:54)
[2023-08-07] MEDS: GABAPENTIN 300 MG CAPSULE PO SCH ×2 (08:55→21:27)
[2023-08-07] MEDS: NYSTATIN POWDER BOTTLE 15GM TOPICAL SCH ×3 (08:55→21:27)
[2023-08-07] MEDS: ALLOPURINOL 100 MG TABLET PO SCH (08:55)
[2023-08-07] MEDS: MULTIVIT,THER IRON,CA,FA & MIN 1 TABLET PO SCH (08:55)
[2023-08-07] MEDS: FOLIC ACID 1 MG TABLET PO SCH (08:55)
[2023-08-07] MEDS: THIAMINE 100 MG TABLET PO SCH (08:55)
[2023-08-07] MEDS: METOPROLOL SUCCINATE 25 MG TAB.XL.24H PO SCH ×2 (08:55→21:27)
[2023-08-07] MEDS: EZETIMIBE 10 MG TABLET PO SCH (08:55)
[2023-08-07] MEDS: DOCUSATE SODIUM 100 MG CAPSULE PO SCH ×2 (08:55→21:27)
[2023-08-07] MEDS: HYDROcodone/APAP 5/325MG TABLET PO PRN ×2 (16:34→23:07)
[2023-08-07] MEDS: SENNOSIDES 1 TABLET PO SCH (21:27)
[2023-08-07] MEDS: ATORVASTATIN 20 MG TABLET PO SCH (21:27)
[2023-08-08] MEDS: HEPARIN 5,000 UNIT/ML VIAL SQ SCH ×3 (05:55→22:10)
[2023-08-08] MEDS: ceFAZolin 1 GM VIAL IV SCH ×3 (05:55→21:50)
[2023-08-08] MEDS: 0.9 % SODIUM CHLORIDE 10 ML SYRINGE IV SCH ×3 (05:56→21:58)
[2023-08-08] MEDS: INSULIN LISPRO 1 UNIT/0.01 ML UNIT SQ SCH ×4 (07:37→22:08)
[2023-08-08] MEDS: EZETIMIBE 10 MG TABLET PO SCH (07:58)
[2023-08-08] MEDS: GABAPENTIN 300 MG CAPSULE PO SCH ×2 (07:58→19:33)
[2023-08-08] MEDS: DOCUSATE SODIUM 100 MG CAPSULE PO SCH ×2 (07:58→19:32)
[2023-08-08] MEDS: METOPROLOL SUCCINATE 25 MG TAB.XL.24H PO SCH ×2 (07:58→19:32)
[2023-08-08] MEDS: MULTIVIT,THER IRON,CA,FA & MIN 1 TABLET PO SCH (07:58)
[2023-08-08] MEDS: ALLOPURINOL 100 MG TABLET PO SCH (07:58)
[2023-08-08] MEDS: FOLIC ACID 1 MG TABLET PO SCH (07:58)
[2023-08-08] MEDS: PANTOPRAZOLE 40 MG TABLET PO SCH (07:59)
[2023-08-08] MEDS: THIAMINE 100 MG TABLET PO SCH (07:59)
[2023-08-08] MEDS: FUROSEMIDE 40 MG TABLET PO SCH ×2 (07:59→15:04)
[2023-08-08] MEDS: NYSTATIN POWDER BOTTLE 15GM TOPICAL SCH ×3 (07:59→22:12)
[2023-08-08] MEDS: HYDROcodone/APAP 5/325MG TABLET PO PRN ×2 (14:58→19:02)
[2023-08-08] MEDS: ATORVASTATIN 20 MG TABLET PO SCH (19:32)
[2023-08-08] MEDS: SENNOSIDES 1 TABLET PO SCH (19:34)
[2023-08-09] MEDS: HYDROcodone/APAP 5/325MG TABLET PO PRN ×3 (00:09→23:39)
[2023-08-09] MEDS: HEPARIN 5,000 UNIT/ML VIAL SQ SCH ×2 (05:59→15:08)
[2023-08-09] MEDS: ceFAZolin 1 GM VIAL IV SCH ×3 (06:01→23:41)
[2023-08-09] MEDS: 0.9 % SODIUM CHLORIDE 10 ML SYRINGE IV SCH ×3 (06:01→23:42)
[2023-08-09 07:07] LABS: ALT/SGPT 12 U/L (<40); AST/SGOT 73 U/L (<40); Albumin 3.1 gm/dL (3.2-5.2); Alkaline Phosphatase 180 U/L (39-117); Bilirubin,Direct < 0.2 mg/dL (0-0.3); Bilirubin,Total 0.4 mg/dL (0.1-1.0); Blood Urea Nitrogen 33 mg/dL (8-23); Calcium 9.1 mg/dL (8.6-10.4); Carbon Dioxide 24 mmol/L (22-30); Chloride 103 mmol/L (96-108); Globulin 3.1 gm/dL (2.2-3.7); Glomerular Filtration Rate 49; Glucose 123 mg/dL (70-105); Lactate Dehydrogenase 191 U/L (135-225); Phosphorous 3.6 mg/dL (2.5-4.5); Triglycerides 153 mg/dL (<150); Uric Acid 8.7 mg/dL (2.5-8.0)
[2023-08-09] MEDS: MULTIVIT,THER IRON,CA,FA & MIN 1 TABLET PO SCH (08:25)
[2023-08-09] MEDS: PANTOPRAZOLE 40 MG TABLET PO SCH (08:25)
[2023-08-09] MEDS: FUROSEMIDE 40 MG TABLET PO SCH ×2 (08:25→17:05)
[2023-08-09] MEDS: ALLOPURINOL 100 MG TABLET PO SCH (08:25)
[2023-08-09] MEDS: THIAMINE 100 MG TABLET PO SCH (08:28)
[2023-08-09] MEDS: FOLIC ACID 1 MG TABLET PO SCH (08:28)
[2023-08-09] MEDS: GABAPENTIN 300 MG CAPSULE PO SCH ×2 (08:28→21:19)
[2023-08-09] MEDS: EZETIMIBE 10 MG TABLET PO SCH (08:29)
[2023-08-09] MEDS: METOPROLOL SUCCINATE 25 MG TAB.XL.24H PO SCH ×2 (08:29→21:19)
[2023-08-09] MEDS: INSULIN LISPRO 1 UNIT/0.01 ML UNIT SQ SCH ×4 (08:29→21:18)
[2023-08-09] MEDS: NYSTATIN POWDER BOTTLE 15GM TOPICAL SCH ×3 (08:29→19:35)
[2023-08-09] MEDS: DOCUSATE SODIUM 100 MG CAPSULE PO SCH ×2 (08:30→21:19)
[2023-08-09] MEDS: ATORVASTATIN 20 MG TABLET PO SCH (21:19)
[2023-08-10] MEDS: SENNOSIDES 1 TABLET PO SCH (06:09)
[2023-08-10] MEDS: HEPARIN 5,000 UNIT/ML VIAL SQ SCH ×4 (06:32→22:18)
[2023-08-10] MEDS: ceFAZolin 1 GM VIAL IV SCH ×3 (06:34→22:18)
[2023-08-10] MEDS: 0.9 % SODIUM CHLORIDE 10 ML SYRINGE IV SCH ×3 (06:34→21:53)
[2023-08-10 06:41] LABS: Basophils # (Auto) 0.09 K/mcL (0.00-0.30); Eosinophils # (Auto) 0.34 K/mcL (0.00-0.70); Eosinophils % (Auto) 3.9 % (0.0-7.0); Hemoglobin 13.1 g/dL (13.7-17.5); Lymphocytes # (Auto) 2.49 K/mcL (1.50-4.80); Lymphocytes % (Auto) 28.5 % (15.5-49.0); Mean Cell Volume 101.3 fL (80.0-100.0); Mean Corpuscular HGB Conc 32.8 g/dL (31.0-36.0); Mean Platelet Volume 9.8 fL (8.8-12.5); Monocytes # (Auto) 0.85 K/mcL (0.10-0.90); Monocytes % (Auto) 9.7 % (1.0-12.0); Neutrophils % (Auto) 56.1 % (38.0-78.0); Platelet Count 221 K/mcL (140-440); RBC 3.95 M/mcL (4.63-6.08); Red Cell Distribution Width 12.6 % (11.5-14.5); WBC 8.8 K/mcL (4.5-11.0)
[2023-08-10 07:14] LABS: ALT/SGPT 14 U/L (<40); AST/SGOT 76 U/L (<40); Albumin 3.1 gm/dL (3.2-5.2); Alkaline Phosphatase 191 U/L (39-117); Bilirubin,Direct < 0.2 mg/dL (0-0.3); Bilirubin,Total 0.4 mg/dL (0.1-1.0); Blood Urea Nitrogen 32 mg/dL (8-23); Calcium 9.3 mg/dL (8.6-10.4); Carbon Dioxide 25 mmol/L (22-30); Chloride 103 mmol/L (96-108); Globulin 3.2 gm/dL (2.2-3.7); Glomerular Filtration Rate 49; Glucose 127 mg/dL (70-105); Lactate Dehydrogenase 181 U/L (135-225); Phosphorous 3.1 mg/dL (2.5-4.5); Triglycerides 149 mg/dL (<150)
[2023-08-10] MEDS: METOPROLOL SUCCINATE 25 MG TAB.XL.24H PO SCH ×2 (08:27→21:53)
[2023-08-10] MEDS: ALLOPURINOL 100 MG TABLET PO SCH (08:27)
[2023-08-10] MEDS: MULTIVIT,THER IRON,CA,FA & MIN 1 TABLET PO SCH (08:27)
[2023-08-10] MEDS: EZETIMIBE 10 MG TABLET PO SCH (08:27)
[2023-08-10] MEDS: DOCUSATE SODIUM 100 MG CAPSULE PO SCH ×2 (08:27→21:53)
[2023-08-10] MEDS: PANTOPRAZOLE 40 MG TABLET PO SCH (08:27)
[2023-08-10] MEDS: GABAPENTIN 300 MG CAPSULE PO SCH ×2 (08:27→21:52)
[2023-08-10] MEDS: FOLIC ACID 1 MG TABLET PO SCH (08:27)
[2023-08-10] MEDS: THIAMINE 100 MG TABLET PO SCH (08:28)
[2023-08-10] MEDS: NYSTATIN POWDER BOTTLE 15GM TOPICAL SCH ×3 (08:30→21:54)
[2023-08-10] MEDS: INSULIN LISPRO 1 UNIT/0.01 ML UNIT SQ SCH ×4 (08:31→22:19)
[2023-08-10] MEDS ORDERED: KETAMINE 50 MG/ML Syringe IV ONE (14:10)
[2023-08-10] MEDS ORDERED: DEXAMETHASONE 10 MG/ML VIAL ONE (14:11)
[2023-08-10] MEDS ORDERED: PROPOFOL 200 MG/20 ML VIAL IV ONE (14:11)
[2023-08-10] MEDS ORDERED: LIDOCAINE 2% PF 5 ML VIAL ONE (14:11)
[2023-08-10] MEDS ORDERED: ONDANSETRON 4 MG/2 ML VIAL ONE (14:11)
[2023-08-10] MEDS ORDERED: BUPIVACAINE PF 0.5% 10 ML VIAL IJ ONE (14:42)
[2023-08-10] MEDS ORDERED: MAGNESIUM SULFATE 2 GM/50 ML BAG IV ONE (15:01)
[2023-08-10] MEDS ORDERED: fentaNYL 100 MCG/2 ML VIAL IV ONE ×2 (15:11→15:50)
[2023-08-10] MEDS ORDERED: VANCOMYCIN 1 GM VIAL TOPICAL SCH (16:00)
[2023-08-10] MEDS ORDERED: LACTATED RINGERS 250 ML IV PRN (16:16)
[2023-08-10] MEDS ORDERED: IPRATROPIUM/ALBUTEROL 3 ML AMPUL.NEB NEB PRN (16:16)
[2023-08-10] MEDS ORDERED: MEPERIDINE 25 MG/ML VIAL IV PRN (16:16)
[2023-08-10] MEDS ORDERED: ONDANSETRON 4 MG/2 ML VIAL IV PRN (16:16)
[2023-08-10] MEDS ORDERED: fentaNYL 100 MCG/2 ML VIAL IV PRN (16:16)
[2023-08-10] MEDS ORDERED: NALOXONE HCL 0.4 MG/ML VIAL IV PRN (16:16)
[2023-08-10] MEDS ORDERED: HYDROmorphone 0.5 MG/0.5 ML SYRINGE IV PRN (16:16)
[2023-08-10] MEDS ORDERED: ACETAMINOPHEN 1,000 MG/100 ML BAG IV ONE (16:16)
[2023-08-10] MEDS ORDERED: PROMETHAZINE 25 MG/ML VIAL IV PRN (16:16)
[2023-08-10] MEDS ORDERED: diphenhydrAMINE 50 MG/ML VIAL IV PRN (16:16)
[2023-08-10] MEDS ORDERED: BISACODYL 10 MG SUPP.RECT PR PRN (16:23)
[2023-08-10] MEDS ORDERED: ONDANSETRON 4 MG ODT TABLET SL PRN (16:23)
[2023-08-10] MEDS ORDERED: BENZOCAINE/MENTHOL 1 LOZENGE PO PRN (16:23)
[2023-08-10] MEDS ORDERED: FLEETS ADULT ENEMA PR PRN (16:23)
[2023-08-10] MEDS ORDERED: METHOCARBAMOL 750 MG TABLET PO PRN (16:23)
[2023-08-10] MEDS ORDERED: morphine 4 MG/ML VIAL IV PRN (16:23)
[2023-08-10] MEDS ORDERED: POLYETHYLENE GLYCOL 3350 17 GM PACKET PO PRN (16:23)
[2023-08-10] MEDS ORDERED: MAGNESIUM HYDROXIDE 30 ML ORAL.SUSP PO PRN (16:23)
[2023-08-10] MEDS ORDERED: SUCRETS LOZENGE PO PRN (16:30)
[2023-08-10] MEDS ORDERED: LACTATED RINGERS 1,000 ML IV SCH (16:30)
[2023-08-10] MEDS ORDERED: SENNOSIDES 1 TABLET PO SCH (21:00)
[2023-08-10] MEDS: ATORVASTATIN 20 MG TABLET PO SCH (21:52)
[2023-08-10] MEDS: ASPIRIN 81 MG TAB.CHEW PO SCH (21:53)
[2023-08-10] MEDS: HYDROmorphone 0.5 MG/0.5 ML SYRINGE IV PRN (22:19)
[2023-08-11] MEDS: HYDROcodone/APAP 5/325MG TABLET PO PRN ×2 (04:16→11:28)
[2023-08-11] MEDS: 0.9 % SODIUM CHLORIDE 10 ML SYRINGE IV SCH (04:17)
[2023-08-11] MEDS: ceFAZolin 1 GM VIAL IV SCH (05:54)
[2023-08-11] MEDS: HEPARIN 5,000 UNIT/ML VIAL SQ SCH (05:54)
[2023-08-11] MEDS: INSULIN LISPRO 1 UNIT/0.01 ML UNIT SQ SCH ×2 (06:51→11:16)
[2023-08-11] MEDS: PANTOPRAZOLE 40 MG TABLET PO SCH (06:53)
[2023-08-11 07:01] LABS: ALT/SGPT 14 U/L (<40); AST/SGOT 80 U/L (<40); Albumin 3.1 gm/dL (3.2-5.2); Albumin/Globulin Ratio 0.9 (1.0-2.3); Alkaline Phosphatase 209 U/L (39-117); Bilirubin,Direct < 0.2 mg/dL (0-0.3); Bilirubin,Total 0.5 mg/dL (0.1-1.0); Blood Urea Nitrogen 29 mg/dL (8-23); Carbon Dioxide 24 mmol/L (22-30); Chloride 101 mmol/L (96-108); Globulin 3.3 gm/dL (2.2-3.7); Glomerular Filtration Rate 53; Glucose 158 mg/dL (70-105); Lactate Dehydrogenase 195 U/L (135-225); Phosphorous 3.6 mg/dL (2.5-4.5); Triglycerides 93 mg/dL (<150); Uric Acid 7.5 mg/dL (2.5-8.0)
[2023-08-11] MEDS ORDERED: FUROSEMIDE 40 MG TABLET PO SCH (08:00)
[2023-08-11] MEDS ORDERED: GABAPENTIN 300 MG CAPSULE ONE (08:31)
[2023-08-11] MEDS: GABAPENTIN 300 MG CAPSULE PO SCH (08:33)
[2023-08-11] MEDS: DOCUSATE SODIUM 100 MG CAPSULE PO SCH (08:33)
[2023-08-11] MEDS: THIAMINE 100 MG TABLET PO SCH (08:33)
[2023-08-11] MEDS: ALLOPURINOL 100 MG TABLET PO SCH (08:33)
[2023-08-11] MEDS: METOPROLOL SUCCINATE 25 MG TAB.XL.24H PO SCH (08:33)
[2023-08-11] MEDS: NYSTATIN POWDER BOTTLE 15GM TOPICAL SCH (08:33)
[2023-08-11] MEDS: ASPIRIN 81 MG TAB.CHEW PO SCH (08:33)
[2023-08-11] MEDS: FOLIC ACID 1 MG TABLET PO SCH (08:33)
[2023-08-11] MEDS: EZETIMIBE 10 MG TABLET PO SCH (08:33)
[2023-08-11] MEDS: MULTIVIT,THER IRON,CA,FA & MIN 1 TABLET PO SCH (08:33)
== END 2023-08-11 12:05 | DRG 493 ==
LOC: ED 04:40 → MEDSUR 09:37
PROVIDERS: ADMIT Internal Medicine; ATTEND Internal Medicine